=== PATIENT | female | born 1955 ===

== ENCOUNTER 2019-12-22 11:12 | Outpatient (REF) | payer MEDICARE, MEDICAID, SELFPAY ==
--- NOTE | 2019-12-22 | MM_ITS ---
EXAMINATION: MM SCREENING DIGITAL BREAST TOMOSYNTHESIS, BILATERAL CLINICAL INFORMATION: Screening. Asymptomatic. The lifetime risk of breast cancer based on the Tyrer-Cuzick Model is 4%. COMPARISON: Mammography: 12/16/2018, 11/27/2017, 10/31/2016, 10/25/2014 TECHNIQUE: Digital breast tomosynthesis is performed in both the craniocaudal and mediolateral oblique views along with computer-aided detection (CAD). Synthesized 2D images are generated from the tomosynthesis. FINDINGS: There are scattered areas of fibroglandular density (ACR BI-RADS breast composition Category b). There are no significant masses, abnormal calcifications, or other abnormalities. Parenchymal pattern is similar to prior studies. No developing density. The axilla and skin contours are unremarkable. IMPRESSION: No mammographic evidence of malignancy. ASSESSMENT: BI-RADS 1: Negative RECOMMENDATION: Routine annual mammography screening. This patient's information was entered into a reminder system with a target due date for their next mammogram.
== END 2019-12-22 11:13 | disposition home or self-care (01) ==
LOC: HO.MAMMO 11:12
PROVIDERS: PCP Internal Medicine; Visit Provider Internal Medicine
DX: Z12.31 Encounter for screening mammogram for malignant neoplasm of breast (principal)
CPT/HCPCS: 77063; 77067

== ENCOUNTER 2020-01-14 12:34 | Outpatient (REF) | payer MEDICARE, MEDICAID, SELFPAY ==
--- NOTE | 2020-01-14 12:46 | XR_ITS ---
EXAMINATION: XR RIBS, BILATERAL CLINICAL INFORMATION: Trauma, pain COMPARISON: None TECHNIQUE: Frontal view chest and 3 views of the ribs are obtained for a total of 4 views. FINDINGS: There is no visible rib fracture. The lungs are clear. There is no pneumothorax, pleural reaction, airspace consolidation, or effusion. The heart is normal in size. The hilar and mediastinal contours are unremarkable. There is no free air beneath the diaphragms. XR/XR ribs BI min 4V w CXR1V IMPRESSION: Unremarkable examination.
== END 2020-01-14 12:35 | disposition home or self-care (01) ==
LOC: HO.HMGCX 12:34
PROVIDERS: PCP Hospitalist; Visit Provider Nurse Practitioner Family
DX: S20.219A Contusion of unspecified front wall of thorax, initial encounter (principal); Z91.81 History of falling
CPT/HCPCS: 71111

== ENCOUNTER → 2020-03-30 08:16 | Outpatient (BNVA) | payer MEDICARE, MEDICAID, SELFPAY | PROVIDERS: PCP Internal Medicine; Visit Provider Nurse Practitioner Gerontology | DX: Z13.89 Encounter for screening for other disorder (principal) | CPT/HCPCS: 99212 ==

== ENCOUNTER 2020-09-21 11:16 | Outpatient (REF) | payer MEDICARE, SELFPAY ==
--- NOTE | ~2020-09-21 | MM_ITS ---
EXAMINATION: MM DIAGNOSTIC DIGITAL BREAST TOMOSYNTHESIS, BILATERAL US DIAGNOSTIC ULTRASOUND BREAST, LEFT CLINICAL INFORMATION: 65-year-old with three-day history anterior left breast pain and fullness. No discharge. Patient started on antibiotics yesterday. Symptom slightly improved. No known family history breast cancer. The lifetime risk of breast cancer based on the Tyrer-Cuzick Model is 3%. COMPARISON: Mammography: 12/22/2019, 12/16/2018, 11/27/2017 TECHNIQUE: Digital breast tomosynthesis is performed in both the craniocaudal and mediolateral oblique views along with computer-aided detection (CAD). Synthesized 2D images are generated from the tomosynthesis. Additional left magnification CC and left magnification ML x2 views are obtained. Ultrasound left breast is targeted to the circumferential retroareolar and periareolar region. Grayscale imaging and color Doppler are performed without and with harmonics. FINDINGS: There are scattered areas of fibroglandular density (ACR BI-RADS breast composition Category b). The right breast is unremarkable. There is no interval mass or architectural abnormality. No abnormal calcifications. No skin thickening or coarsening of the Tristan's ligaments. The axilla is unremarkable. The left breast shows increased attenuation in the anterior breast with subtle borderline skin thickening involving the areola. There is some mild coarsening of the stromal markings. No focal mass or architectural abnormality. The axilla is unremarkable. Ultrasound left breast demonstrates cyst 11:00 position 2 cm from nipple measuring 9 x 8 x 5 mm. There is a smaller cysts upper outer retroareolar breast measuring 5 x 3 mm. Both cysts show circumscribed margins, and no color flow, and increased through-transmission of sound. There is no solid mass or focal duct ectasia or focal hyperemia. No visible abscess or edema tracking in soft tissue plane. Results are discussed with the patient at time of visit. Findings are most likely related to nonspecific mastitis anterior left breast. Patient notes some improvement today while on antibiotics. She is advised to complete full course of antibiotics and follow-up with her primary care doctor no later than Saturday next week. Patient to follow up earlier with her provider or the emergency Department of symptoms worsen. Follow-up left breast imaging is recommended within 3 months to confirm resolution. Results and recommendation called to office senior product development manager (Zonia) for Dr. Skelton on 09/21/2020. MM/MM tomosynthesis diagnostic BI IMPRESSION: 1. Left: Findings consistent with nonspecific mastitis. 2 small cysts anterior left breast without hyperemia. No visible abscess. 2. Right: No mammographic evidence of malignancy. ASSESSMENT: BI-RADS 3: Probably Benign RECOMMENDATION: 1. Patient to complete her course of antibiotics and follow up with her PCP as directed. 2. Short interval follow-up left diagnostic mammography within 3 months. This patient's information was entered into a reminder system with a target due date for their next mammogram.
== END 2020-09-21 11:17 | disposition home or self-care (01) ==
LOC: HO.MAMMO 11:16
PROVIDERS: Visit Provider Family Medicine
DX: N63.15 Unspecified lump in the right breast, overlapping quadrants (principal)
CPT/HCPCS: 76642; 77062; 77066

== ENCOUNTER 2020-09-23 10:34 | Outpatient (REF) | payer MEDICARE, SELFPAY ==
[2020-09-23 11:57] LABS: Estimated Average Glucose 163 mg/dL; Hemoglobin A1c % 7.3 %
[2020-09-23 12:17] LABS: Alanine Aminotransferase 7 U/L (0-31); Albumin Level 4.2 g/dL (3.5-5.0); Alkaline Phosphatase 106 U/L (39-117); Anion Gap 13 (12-20); Aspartate Amino Transferase 13 U/L (5-31); Bilirubin Total 0.7 mg/dL (0.0-1.0); Blood Urea Nitrogen 15 mg/dL (9-16); Calcium 10.1 mg/dL (8.4-10.2); Carbon Dioxide 29 mmol/L (22-29); Chloride 106 mmol/L (96-108); Cholesterol 206 mg/dL; Estimated Glomerular Filt Rate > 60; Glucose Fasting 130 mg/dL (60-99); HDL Cholesterol 41 mg/dL; LDL Cholesterol Calculated 145 mg/dl; Potassium 4.5 mmol/L (3.3-5.1); Sodium 143 mmol/L (135-145); Total Protein 6.9 g/dL (6.5-8.0); Triglycerides 100 mg/dL
[2020-09-23 12:19] LABS: Creatinine Urine 208.21 mg/dL; Microalbum/Creatinine Ratio Ur 12.4 ug/mg cr
[2020-09-24 16:07] LABS: LDL Cholesterol Direct 158 mg/dL (<100)
== END 2020-09-23 10:35 | disposition home or self-care (01) ==
LOC: HO.LAB 10:34
PROVIDERS: PCP Hospitalist; Visit Provider Nurse Practitioner Gerontology
DX: E11.65 Type 2 diabetes mellitus with hyperglycemia (principal)
CPT/HCPCS: 36415; 80053; 80061; 82043; 83036; 83721

== ENCOUNTER → 2020-09-26 10:54 | Outpatient (BNVA) | payer MEDICARE, SELFPAY | PROVIDERS: PCP Hospitalist; Visit Provider Nurse Practitioner Gerontology | DX: E11.42 Type 2 diabetes mellitus with diabetic polyneuropathy (principal); E78.5 Hyperlipidemia, unspecified; I10 Essential (primary) hypertension | CPT/HCPCS: 82947; 99212 ==

== ENCOUNTER 2021-02-15 11:57 | Outpatient (REF) | payer MEDICARE, SELFPAY ==
--- NOTE | ~2021-02-15 | MM_ITS ---
EXAMINATION: MM DIAGNOSTIC DIGITAL BREAST TOMOSYNTHESIS, LEFT CLINICAL INFORMATION: Follow-up mastitis. The lifetime risk of breast cancer based on the Tyrer-Cuzick Model is 3.4%. COMPARISON: Mammography: September 21, 2020 and studies dating back to January 08, 2012 TECHNIQUE: Digital breast tomosynthesis is performed in both the craniocaudal and mediolateral oblique views along with computer-aided detection (CAD). Synthesized 2D images are generated from the tomosynthesis. FINDINGS: There are scattered areas of fibroglandular density (ACR BI-RADS breast composition Category b). There are no significant masses, abnormal calcifications, or other abnormalities. Results are provided to the patient at time of visit by the technologist. MM/MM tomosynthesis diagnostic LT IMPRESSION: There are no significant changes from prior study. ASSESSMENT: BI-RADS 1: Negative RECOMMENDATION: Routine annual mammography screening, due in 7 months. This patient's information was entered into a reminder system with a target due date for their next mammogram.
== END 2021-02-15 11:58 | disposition home or self-care (01) ==
LOC: HO.MAMMO 11:57
PROVIDERS: PCP Hospitalist; Visit Provider Family Medicine
DX: N60.02 Solitary cyst of left breast (principal)
CPT/HCPCS: 77061; 77065

== ENCOUNTER → 2021-02-20 11:22 | Outpatient (BNVA) | payer MEDICARE, SELFPAY | PROVIDERS: PCP Hospitalist; Visit Provider Nurse Practitioner Gerontology | DX: E11.42 Type 2 diabetes mellitus with diabetic polyneuropathy (principal); E78.5 Hyperlipidemia, unspecified; I10 Essential (primary) hypertension | CPT/HCPCS: 82947; 83036; 99212 ==

== ENCOUNTER → 2021-05-30 10:36 | Outpatient (BNVA) | payer MEDICARE, SELFPAY | PROVIDERS: PCP Hospitalist; Visit Provider Nurse Practitioner Gerontology | DX: E11.42 Type 2 diabetes mellitus with diabetic polyneuropathy (principal); I10 Essential (primary) hypertension; E78.5 Hyperlipidemia, unspecified; Z79.899 Other long term (current) drug therapy | CPT/HCPCS: 82947; 83036; 99212 ==

== ENCOUNTER → 2021-06-07 09:01 | Outpatient (BNVA) | payer MEDICARE, SELFPAY | PROVIDERS: PCP Hospitalist; Visit Provider Dietitian, Registered | DX: E11.42 Type 2 diabetes mellitus with diabetic polyneuropathy (principal) | CPT/HCPCS: 97802 ==

== ENCOUNTER 2021-10-19 13:01 | Outpatient (REF) | payer OTHER, SELFPAY ==
--- NOTE | ~2021-10-19 | MM_ITS ---
EXAMINATION: MM SCREENING DIGITAL BREAST TOMOSYNTHESIS, BILATERAL CLINICAL INFORMATION: Screening. Asymptomatic. The lifetime risk of breast cancer based on the Tyrer-Cuzick Model is 3%. COMPARISON: Mammography: 02/15/2021, 09/21/2020, 12/22/2019, 12/16/2018; ultrasound left breast 09/21/2020. TECHNIQUE: Digital breast tomosynthesis is performed in both the craniocaudal and mediolateral oblique views along with computer-aided detection (CAD). Synthesized 2D images are generated from the tomosynthesis. FINDINGS: There are scattered areas of fibroglandular density (ACR BI-RADS breast composition Category b). Parenchymal pattern is similar to prior studies. There is no significant mass or architectural abnormality or developing density. Right breast again has small smooth oval nodule mid medial breast and anterior upper outer breast. No abnormal calcifications. The axilla and skin contours are unremarkable. No skin thickening or coarsening of the Tristan's ligaments. MM/MM tomosynthesis screening BI IMPRESSION: No mammographic evidence of malignancy. ASSESSMENT: BI-RADS 2: Benign RECOMMENDATION: Routine annual mammography screening. This patient's information was entered into a reminder system with a target due date for their next mammogram.
== END 2021-10-19 13:02 | disposition home or self-care (01) ==
LOC: HO.MAMMO 13:01
PROVIDERS: PCP Hospitalist; Visit Provider Hospitalist
DX: Z12.31 Encounter for screening mammogram for malignant neoplasm of breast (principal)
CPT/HCPCS: 77063; 77067

== ENCOUNTER 2022-07-11 10:12 | Outpatient (REF) | payer OTHER, SELFPAY ==
[2022-07-11 10:24] LABS: MANUAL DIFF FLAG NO
[2022-07-11 10:38] LABS: Basophils Percent Auto 0.4 % (0-2); Eosinophils Absolute Auto 0.1 X10*3/uL (0.0-0.4); Eosinophils Percent Auto 0.7 % (0-4); Hematocrit 43.2 % (37.0-47.0); Hemoglobin 14.3 g/dl (12.0-16.0); Imm Gran Abs Auto 0.02 X10*3/uL (0.00-0.03); Imm Gran Pct Auto 0.3 % (0.0-0.4); Lymphocytes Absolute Auto 1.7 X10*3/uL (1.2-4.9); Lymphocytes Percent Auto 22.8 % (20-40); Mean Corpuscular HGB Conc 33.1 g/dl (31.0-35.0); Mean Corpuscular Hemoglobin 28.9 pg (27.0-33.0); Mean Corpuscular Volume 87.3 fL (80.0-98.0); Monocytes Absolute Auto 0.5 X10*3/uL (0.1-1.2); Monocytes Percent Auto 6.2 % (2-11); Neutrophils Absolute Auto 5.3 x10*3/uL (2.0-8.3); Neutrophils Percent Auto 69.6 % (45-73); Platelet Count 216 X10*3/uL (160-400); Red Blood Count 4.95 X10*6/uL (4.20-5.50); Red Cell Distribution Width 12.8 % (11.0-16.0); White Blood Count 7.6 X10*3/uL (4.8-10.8)
[2022-07-11 11:01] LABS: Estimated Average Glucose 315 mg/dL; Hemoglobin A1c % 12.6 %
[2022-07-11 11:27] LABS: Appearance Urine Clear; Color Urine Yellow; Glucose Urine UA >=1000 mg/dL (Negative); Leukocyte Esterase Urine Negative (Negative); Nitrite Urine Negative (Negative); PH 6.5 (5.0-9.0); Specific Gravity - Urine >= 1.030 (1.005-1.025); UMIC TRIGGER UACC YES; Urine Blood Negative (Negative); Urine Ketones Negative (Negative); Urine Protein Negative (Neg-Trace)
[2022-07-11 11:39] LABS: TSH reflex Free T4 0.91 uIU/mL (0.32-4.0)
[2022-07-11 11:55] LABS: Bacteria Urine None Seen (None Seen); Hyaline Casts Urine 0-2 /LPF (0-2); RBC Urine 0-2 /HPF (0-2); Squamous Epithelial Cell Urine 0-2 /HPF (0-2); WBC Urine 0-5 /HPF (0-5)
[2022-07-11 12:05] LABS: Alanine Aminotransferase 15 U/L (0-31); Albumin Level 4.2 g/dL (3.5-5.0); Alkaline Phosphatase 166 U/L (39-117); Anion Gap 13 (12-20); Aspartate Amino Transferase 16 U/L (5-31); Bilirubin Total 0.7 mg/dL (0.0-1.0); Blood Urea Nitrogen 9 mg/dL (9-16); Calcium 9.9 mg/dL (8.4-10.2); Carbon Dioxide 30 mmol/L (22-29); Chloride 100 mmol/L (96-108); Cholesterol 245 mg/dL; Estimated Glomerular Filt Rate 54; Glucose Fasting 556 mg/dL (60-99); HDL Cholesterol 46 mg/dL; LDL Cholesterol Calculated 154 mg/dl; Sodium 138 mmol/L (135-145); Total Protein 6.7 g/dL (6.5-8.0); Triglycerides 225 mg/dL
[2022-07-11 12:26] LABS: Creatinine Urine 21.69 mg/dL; Microalbumin Urine < 5.0 mg/L
== END 2022-07-11 10:13 | disposition home or self-care (01) ==
LOC: HO.LAB 10:12
PROVIDERS: PCP Internal Medicine; Visit Provider Internal Medicine
DX: E78.00 Pure hypercholesterolemia, unspecified (principal); E11.9 Type 2 diabetes mellitus without complications; I10 Essential (primary) hypertension; E55.9 Vitamin D deficiency, unspecified
CPT/HCPCS: 36415; 80053; 80061; 81001; 82043; 82306; 83036; 84443; 85025

== ENCOUNTER 2022-07-24 16:02 | Outpatient (AMB) | payer OTHER, SELFPAY ==
--- NOTE | 2022-07-24 16:30 | A.OFFPC_ITS ---
Vital Signs 07/24/22 16:31 Height 5 ft 4 in Weight 134 lb BMI 23.0 BP 130/80 Blood Pressure Location Lt brachial Position Sitting Pulse 87 Pulse Source Pulse Oximeter Pulse Oximetry (%) 97 Oxygen Delivery Method Room Air Intake Visit Reasons: Lab Results/ Paper Work Intake Note: Patient is here to review lab results and paperwork. Assistant Service Manager Required: Yes Accompanied by: Self / Same As Patient Allergies metformin Adverse Reaction (Intermediate, Verified 02/18/23 14:55) Abdominal Pain Medication List - Last Reconciled 07/24/22 by Pascual King MD blood sugar diagnostic (FreeStyle Lite Strips) 1 strip miscellaneous TID blood sugar diagnostic As directed blood-glucose meter (FreeStyle [place] Lite kit) As directed dulaglutide (Trulicity) 4.5 mg (0.5 mL) subcut QWEEK lancets (FreeStyle Lancets) As directed Tobacco use date assessed: 07/24/22 Fall risk assessment: No Falls in past year HPI Lab Results/ Paper Work HPI Details Patient comes in today at the request of Dr. Robert Chavira at [facility] in [place] for a preoperative medical examination for clearance for dental procedures/extractions As she has previously mentioned to us when she was last here a couple of weeks ago, she is being scheduled for some dental procedures but has been advised that she will need to get a medical clearance from her PCP first before they can proceed with scheduling her as she has a history of diabetes and has reported that she has been experiencing on and off chest pains recently, although she thinks that a lot of these are due to anxiety States that her chest pains do not appear to be related to activity or exertion and she denies any associated symptoms with her chest pains Denies any shortness of breath Denies any headaches or dizziness No nausea/vomiting, no abdominal pain No change in bowel habits noted Would also like to go over the results of her labs done a couple of weeks ago FORMERLY [facility] Medical History Smoker Pure hypercholesterolemia Diabetes mellitus Nephrolithiasis AVNRT (AV louisa re-entry tachycardia) Valvular heart disease Essential hypertension Hyperlipidemia LDL goal <70 Type 2 diabetes mellitus with diabetic polyneuropathy Surgical History Hx of hemorrhoidectomy Status post catheter ablation of slow pathway (~07/01/12) S/P HANNY-BSO (total abdominal hysterectomy and bilateral salpingo-oophorectomy) History of ectopic History of section Family History Father Prostate cancer Mother Natural Father FH: prostate cancer Mother Alive and well Social History Household Members: Children Household Members Other:: son Housing: House Alcohol intake: never Patient Tobacco Use Status: Current everyday Tobacco user Tobacco use type: Cigarette Cigarette Packs Per Day: 1 Cigarettes Per Day: 20 e-Cigarette/Vaping Use: Never Used Second Hand Smoke Exposure: Yes service: No Current occupational status: retired Cognitive needs: No Hearing needs: No Vision needs: Yes (Glasses) Questionnaire PHQ-9 Over the last 2 weeks, how often have you been bothered by any of the following problems? 1. Little interest or pleasure in doing things: not at all 2. Feeling down, depressed, or hopeless: several days 3. Trouble falling or staying asleep, or sleeping too much: several days 4. Feeling tired or having little energy: several days 5. Poor appetite or overeating: more than half the days 6. Feeling bad about yourself - or that you are a failure or have let yourself or your family down: not at all 7. Trouble concentrating on things, such as reading the newspaper or watching television: not at all 8. Moving or speaking so slowly that other people could have noticed. Or the opposite - being so fidgety or restless that you have been moving around a lot more than usual: not at all 9. Thoughts that you would be better off or of hurting yourself in some way: not at all Total score: 5 Depression Screening Interpretation: Positive Depression Screening Follow-up: Follow-up Visit Requested 52145 - PHQ-9 Billing: Yes Source: Developed by Drs. John Gregory, Gris Worthy, Eilas Justice and colleagues, with an educational franco from [employer] Thrive Questionnaire Date Thrive assessed: 07/24/22 I am a: Patient What is your living situation today?: I have a steady place to live Within the past 12 months, did the food you bought not last and you didn't have the money to get more?: Never true Within the past 12 months, did you worry whether your food would run out before you got money to buy more?: Never true Do you have trouble paying for medicines?: No Do you have trouble getting transportation to medical appointments?: No Do you have trouble paying your heating and electricity bill?: No Do you have trouble taking care of your child, family member or friend?: No Do you have trouble with day-to-day activities such as bathing, preparing meals, shopping, managing finances, etc.?: No Are you currently unemployed and looking for a job?: No Are you interested in more education?: No Currently or been in a relationship where the following occur: no concerns reported AUDIT C Alcohol Use Questionnaire (AUDIT-C) 1. How often do you have a drink containing alcohol?: Never 3. How often do you have six or more drinks on one occasion?: Never Total Score: 0 Score Reviewed/Action Taken: Yes BETTY-7 AMB Questionnaire BETTY-7 Date BETTY - 7 assessed: 07/24/22 Feeling nervous, anxious, or on edge: 2 = More than half the days Not being able to stop or control worryin = Several days Worrying too much about different things: 1 = Several days Trouble relaxin = Not at all Being so restless that it is hard to sit still: 0 = Not at all Becoming easily annoyed or irritable: 0 = Not at all Feeling afraid as if something awful might happen: 0 = Not at all Total BETTY-7 score (0-4 normal; 5-9 mild; 10-14 moderate; 15-21 severe): 4 Source: Developed by Drs. John Gregory, Gris Worthy, Elias Justice and colleagues, with an educational franco from [employer] BETTY-7 Assessment Billing BETTY-7 Assessment Tool: BETTY-7 Assessment 41823 Review of Systems Const Denies chills, Denies fatigue, Denies fever(s) and Denies headache(s) ENT Denies dysphagia, Denies dizziness, Denies headache(s), Denies odynophagia and Denies sore throat Card Reports chest pain (on and off, not related to activity or exertion), Denies palpitations and Denies dyspnea Resp Denies cough and Denies dyspnea GI Denies abdominal pain, Denies constipation, Denies dysphagia, Denies diarrhea, Denies nausea, Denies odynophagia and Denies vomiting Reports nocturia, Denies dysuria and Denies urinary urgency Musc Denies arthralgias Skin/Breast Denies rash Neuro Denies dizziness and Denies headache(s) Endo Denies fatigue and Denies palpitations Physical exam (Primary Care) Vital Signs: Last Vital Signs Pulse 87 07/24/22 16:31 BP 130/80 07/24/22 16:31 Pulse Ox 97 07/24/22 16:31 Oxygen Delivery Method Room Air 07/24/22 16:31 BMI result Body Mass Index 23.0 Tobacco/Smoking Status: Tobacco use Status Tobacco use date assessed 07/24/22 07/24/22 16:37 Patient Tobacco Use Status Current everyday Tobacco 07/24/22 16:37 Tobacco use type Cigarette 07/24/22 16:37 e-Cigarette/Vaping Use Never Used 07/24/22 16:37 PHQ-9: PHQ-9 Score PHQ-9: Total score 5 07/24/22 17:14 Depression Screening Interpretation: Positive Depression Screening Follow-up: Follow-up Visit Requested Thrive Assessment: Date of Thrive Assessment Date Thrive assessed 07/24/22 07/24/22 16:37 Currently or been in a relationship where the following occur: no concerns reported Const General: no acute distress and alert HENMT Ears: TM's normal bilaterally and EAC's normal Throat: Yes posterior oropharynx normal and Yes tonsils normal Neck Neck: Yes no lymphadenopathy and Yes supple Resp Auscultation: clear to auscultation bilaterally, no rales and no wheezes Cardio Rate: regular rate Rhythm: regular rhythm Heart sounds: no murmurs GI Palpation (GI): Soft to palpation and nontender Auscultation: normal bowel sounds Skin Rashes: no rashes Extrem General: Yes no clubbing, cyanosis or edema Results Reviewed Results Reviewed: Laboratory Tests 07/11/22 10:23 WBC 7.6 Hgb 14.3 Hct 43.2 Plt Count 216 Sodium 138 Potassium 5.0 Creatinine 1.02 Estimated GFR 54 Fasting Glucose 556 H* Hemoglobin A1c % 12.6 Calcium 9.9 AST 16 ALT 15 Triglycerides 225 Cholesterol 245 LDL Cholesterol, Calc 154 HDL Cholesterol 46 25-OH Vitamin D Total 29.0 TSH 0.91 Ur Specific [place] >= 1.030 H Urine Protein Negative Urine Glucose (UA) >=1000 H Urine Blood Negative Assessment and Plan Assessment & Plan (1) Chest pain: Comment: (+) Hx of AVNRT s/p ablation of slow pathway in 2012 Code(s): R07.9 - Chest pain, unspecified Qualifiers: Chest pain type: unspecified Qualified Code(s): R07.9 - Chest pain, unspecified Plan: She is scheduled for EKG stress testing next week and has been referred to cardiology recently for further evaluation and management and this is currently awaiting scheduling (2) Diabetes mellitus: Code(s): E11.9 - Type 2 diabetes mellitus without complications Qualifiers: Diabetes mellitus type: type 2 Diabetes mellitus penitentiary insulin use: without intermediate manager use Diabetes mellitus complication status: with hyperglycemia Qualified Code(s): E11.65 - Type 2 diabetes mellitus with hyperglycemia Plan: HgbA1c was at 12.6% on her labs done a couple of weeks ago (in-office HgbA1c was at 7.0% back on 05/30/22) - goal is <7.0% She was just started back on Trulicity 4.5 mg once a week when she was last seen about 2 weeks ago - she was reportedly OFF Trulicity completely for a few weeks as it was reportedly out of stock at her local pharmacy Reinforced diabetic diet (3) Pure hypercholesterolemia: Code(s): E78.00 - Pure hypercholesterolemia, unspecified Plan: Results of her labs done a couple of weeks ago reviewed and discussed with patient - is advised that her cholesterol levels are elevated, with her LDL cholesterol at 154 mg/dl - goal is 70 mg/dl or less Reinforced low cholesterol diet She was on Rosuvastatin in the past but has not taken Rx in the past 2 years Would like to hold off on starting back on statins and work on her diet for now Reminded to recheck her labs in 3 months before her appt with her PCP (4) Smoker: Code(s): F17.200 - Nicotine dependence, unspecified, uncomplicated Plan: Counseled again on smoking cessation Plan Follow up with PCP as scheduled in 3 months Coding Level of Care Code Est Pt Level 4 (75206) Diagnoses Chest pain, unspecified type R07.9 Chest pain type: unspecified Type 2 diabetes mellitus with hyperglycemia, without long-term current use of insulin E11.65 Diabetes mellitus type: type 2 Diabetes mellitus penitentiary insulin use: without penitentiary use Diabetes mellitus complication status: with hyperglycemia Pure hypercholesterolemia E78.00 Smoker F17.200 Additional Codes BETTY-7 Assessment Billing - BETTY-7 Assessment Tool: BETTY-7 Assessment 96686 ([id number])
[2022-07-24 16:31] VITALS: BP 130/80; PULSE 87; O2SAT 97; BMI 23.0
== END 2022-07-24 17:18 | disposition home or self-care (01) ==
LOC: HO.HMGH 16:02
PROVIDERS: PCP Internal Medicine; Visit Provider Internal Medicine
DX: R07.9 Chest pain, unspecified (principal); E11.65 Type 2 diabetes mellitus with hyperglycemia; E78.00 Pure hypercholesterolemia, unspecified; F17.200 Nicotine dependence, unspecified, uncomplicated
CPT/HCPCS: 99214

== ENCOUNTER → 2022-07-30 08:24 | Outpatient (REF) | payer OTHER, SELFPAY ==
--- NOTE | 2022-07-30 08:44 | CA_ITS ---
Acquisition Time: 2022-07-30 09:02:07 Total Exercise Time: 00:06:06 Test Indications: CHEST PAIN Medications: Protocol: ADRY Max HR: 131 BPM 86% of Pred: 151 BPM Max BP: 138/070 mmHG Max Work Load: 7.1 METS Exercise stress test with exercise 6 min 6 sec of Adry protocol, achieving 86% MPHR with request to stop due to inability to keep up with speed in stage 3. with mild sob, no chest discomfort, with isolated PACs, with normotensive response to exercise, with EKG changes meeting criteria for ischemia: 1-1.5 mm horizontal to downsloping ST segments inferiorly and V5-V6 which improves in recovery. Test reviewed with Dr Vázquez Referred By: Pascual King Overread By: MICHI RUBIN
== END ==
LOC: HO.CARD 08:24
PROVIDERS: PCP Internal Medicine; Visit Provider Internal Medicine
DX: R07.9 Chest pain, unspecified (principal)
CPT/HCPCS: 93017

== ENCOUNTER → 2022-10-04 09:18 | Outpatient (REF) | payer OTHER, SELFPAY ==
--- NOTE | ~2022-10-04 | NM_ITS ---
Exercise Myocardial perfusion study Indication: Chest pain to evaluate for myocardial ischemia Technique: The patient was brought in for an exercise perfusion study on 10/04/2022. Patient performed exercise as per Santy protocol and was injected 25 mCi of sestamibi was given intravenously one target HR was achieved. Images were obtained using the SPECT gamma camera interlaced with the gating device. Images were obtained in supine position. Resting perfusion study was performed on 10/05/2022. Patient was administered 25 mCi of sestamibi intravenously at rest. Images were then obtained in supine position. Images obtained with and without CT attenuation. Total DLP 84 mGy-cm. Images were processed with the software and compared side to side in short axis, horizontal long axis and vertical long axis views. Findings: The stress perfusion study showed non attenuated images show normal uptake of segments of LV myocardium. There is suggestion of left ventricle hypertrophy. Attenuation corrected images show mildly reduced uptake in the apex of the LV myocardium. The gated study shows normal LV systolic function with calculated LVEF of greater than 70%. LV cavity is normal in size. The gated study shows normal systolic wall thickening and contraction of all segments. There is no transient ischemic dilation. Resting study shows no change in perfusion pattern compared to stress perfusion study. Gating at rest reveals normal systolic wall motion with ejection fraction at 73%. The findings are consistent with normal myocardial perfusion. NM/NM cardiolite stress test Impression: 1. Normal myocardial perfusion 2. Gated LVEF is greater than 70% 3. Transient ischemic dilatation not present Stress EKG is suggestive of ischemia
--- NOTE | 2022-10-04 09:25 | CA_ITS ---
Acquisition Time: 2022-10-04 09:48:02 Total Exercise Time: 00:05:03 Test Indications: abn ett Medications: see h Protocol: ADRY Max HR: 139 BPM 92% of Pred: 151 BPM Max BP: 138/078 mmHG Max Work Load: 7.0 METS Exercise stress test exercise 5 min 3 sec of Adry protocol achieving 90% MPHR, with moderate SOB, without chest discomfort, with normotensive response to exercise, with downsloping STs in V5-V6. Nuclear images pending. Test reviewed with Dr. Vázquez. Referred By: Pascual King Overread By: Andreia Nava
== END ==
LOC: HO.CARD 09:18
PROVIDERS: PCP Internal Medicine; Visit Provider Internal Medicine
DX: R07.9 Chest pain, unspecified (principal)
CPT/HCPCS: 78452; 93017; A9500

== ENCOUNTER → 2022-10-04 09:25 | Outpatient (BNV) | payer OTHER, SELFPAY | PROVIDERS: PCP Internal Medicine; Visit Provider Nurse Practitioner | DX: R06.02 Shortness of breath (principal); R07.9 Chest pain, unspecified | CPT/HCPCS: 78452; 93016; 93018 ==

== ENCOUNTER 2022-10-11 13:54 | Outpatient (AMB) | payer OTHER, SELFPAY ==
[2022-10-11 14:04] VITALS: BP 130/70; BMI 22.8
--- NOTE | 2022-10-11 14:04 | MHC.PC.OV ---
Vital Signs 10/11/22 14:04 Height 5 ft 4 in Weight 133 lb BMI 22.8 BP 130/70 Blood Pressure Location Lt brachial Position Sitting Intake Visit Reasons: DM, hyperlipidemia Intake Note: Patient here for a follow up DM, hyperlipidemia, ? ingrown hair Receipt And Report Clerk Required: No Accompanied by: Self / Same As Patient Allergies metformin Adverse Reaction (Intermediate, Verified 10/11/22 14:22) Abdominal Pain Medication List - Last Reconciled 10/11/22 by Liz Thrasher MD blood sugar diagnostic (FreeStyle Lite Strips) 1 strip miscellaneous TID blood sugar diagnostic As directed blood-glucose meter (FreeStyle [place] Lite kit) As directed dulaglutide (Trulicity) 4.5 mg (0.5 mL) subcut QWEEK lancets (FreeStyle Lancets) As directed mupirocin 2% 1 appl topical TID Tobacco use date assessed: 08/23/22 Fall risk assessment: No Falls in past year Last assessed Fall Risk: 10/11/22 Dental Screening Dental Screen Date: 10/11/22 Did you have a dental visit in the last 12 months?: Yes Did you have a dental problem in the last 6 months where you did not have access to dental care?: No Was dental information given to patient?: Patient has dentist HPI HPI Comments History of Present Illness Details This is a 67-year-old female with diabetes mellitus type 2 not controlled that comes today for follow-up on her conditions. Last LDL was not on goal and I will start her on statins. A1c is 14% and she admits she stop using Trulicity few months ago. Will be referred to Endocrinology again. She also complains of abscess in pubic area that happened after she shaved. There are 3 of different size. No chest pain or shortness of breath. [facility] Medical History AVNRT (AV louisa re-entry tachycardia) Diabetes mellitus Essential hypertension Hyperlipidemia LDL goal <70 Nephrolithiasis Pure hypercholesterolemia Smoker Type 2 diabetes mellitus with diabetic polyneuropathy Valvular heart disease Surgical History History of section History of ectopic Hx of hemorrhoidectomy S/P HANNY-BSO (total abdominal hysterectomy and bilateral salpingo-oophorectomy) Status post catheter ablation of slow pathway (~07/01/12) Family History Father Prostate cancer Mother Natural Father FH: prostate cancer Mother Alive and well Social History Household Members: Children Household Members Other:: son Housing: House Alcohol intake: never Patient Tobacco Use Status: Current everyday Tobacco user Tobacco use type: Cigarette Cigarette Packs Per Day: 1 Cigarettes Per Day: 20 e-Cigarette/Vaping Use: Never Used Second Hand Smoke Exposure: Yes service: No Current occupational status: retired Cognitive needs: No Hearing needs: No Vision needs: Yes (Glasses) Questionnaire Thrive Questionnaire Date Thrive assessed: 07/24/22 BETTY-7 AMB Questionnaire BETTY-7 Date BETTY - 7 assessed: 07/24/22 Source: Developed by Drs. John Gregory, Gris Worthy, Elias Justice and colleagues, with an educational franco from [employer]. Review of Systems Const All systems reviewed & are unremarkable except as noted in HPI and below Eyes Reports no additional complaints, Denies change in vision and Denies other visual disturbances Card Denies chest pain at rest, Denies chest pain with activity, Denies edema, Denies irregular heart rhythm, Denies claudication, Denies dyspnea, Denies dyspnea on exertion, Denies orthopnea, Denies paroxysmal nocturnal dyspnea and Denies slow heart rate Resp Denies cough, Denies dyspnea and Denies dyspnea on exertion GI Denies abdominal pain, Denies change in bowel habits, Denies excessive flatus, Denies nausea and Denies vomiting Denies urinary incontinence, Denies urinary hesitancy and Denies urinary urgency Musc Denies abnormal gait, Denies atrophy, Denies deformity and Denies limited range of motion Skin/Breast Denies bleeding lesions, Reports furuncle, Denies changing lesions, Reports lesions and Denies rash Neuro Denies abnormal gait and Denies lack of coordination Physical exam (Primary Care) Vital Signs: Last Vital Signs BP 130/70 10/11/22 14:04 BMI result Body Mass Index 22.8 Tobacco/Smoking Status: Tobacco use Status Tobacco use date assessed 08/23/22 10/11/22 14:09 Patient Tobacco Use Status Current everyday Tobacco 10/11/22 14:09 Tobacco use type Cigarette 10/11/22 14:09 e-Cigarette/Vaping Use Never Used 10/11/22 14:09 Thrive Assessment: Date of Thrive Assessment Date Thrive assessed 07/24/22 10/11/22 14:09 Eyes General: appearance normal, both eyes and all related structures Eyelids: Yes eyelids normal Conjunctivae: conjunctivae normal Neck Neck: Yes normal visual inspection and Yes supple Resp Effort & Inspection: normal respiratory effort Auscultation: clear to auscultation bilaterally Cardio Jugular venous distension: no JVD Rate: regular rate Rhythm: regular rhythm Heart sounds: S1 normal heart sound present and S2 normal heart sound present Skin Other: 3 abscess in pubic area Extrem General: Yes full ROM Results AMB Hemoglobin A1c AMB Hemoglobin A1c 14.0 % Last Edit by CRISTI Coulter on 10/11/22 14:11 Results Reviewed Results Reviewed: Laboratory Last Values Hgb A1c (Clinic) 14.0 % (4.0-6.0) H 10/11/22 14:09 Assessment and Plan Assessment & Plan (1) Diabetes mellitus: Code(s): E11.9 - Type 2 diabetes mellitus without complications Qualifiers: Diabetes mellitus type: type 2 Diabetes mellitus halfway insulin use: without halfway use Diabetes mellitus complication status: with hyperglycemia Qualified Code(s): E11.65 - Type 2 diabetes mellitus with hyperglycemia Plan: Restart Trulicity. Referred to Endocrinology. A1c goal is equal or less than 7%. (2) Pure hypercholesterolemia: Code(s): E78.00 - Pure hypercholesterolemia, unspecified Plan: Start statins. LDL goal is less than 70. (3) Abscess: Code(s): L02.91 - Cutaneous abscess, unspecified Plan: Start Bactrim DS. Patient was instructed that if abscess still present will need surgery referral. 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
== END 2022-10-11 15:07 | disposition home or self-care (01) ==
PROVIDERS: Visit Provider Internal Medicine
DX: E11.65 Type 2 diabetes mellitus with hyperglycemia (principal); E78.00 Pure hypercholesterolemia, unspecified; L02.91 Cutaneous abscess, unspecified; E11.9 Type 2 diabetes mellitus without complications
CPT/HCPCS: 83036; 99213

== ENCOUNTER 2022-10-16 15:24 | Outpatient (AMB) | payer OTHER, SELFPAY ==
--- NOTE | 2022-10-16 15:39 | A.OFFVIS_ITS ---
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 Breaker Oiler Required: No Breaker Oiler Name: max torres [id number] Allergies metformin Adverse Reaction (Intermediate, Verified 10/16/22 15:49) Abdominal Pain Medication List - Last Reconciled 10/16/22 by JOSÉ LUIS Flower atorvastatin 20 mg PO BEDTIME 90 days blood sugar diagnostic (FreeStyle Lite Strips) 1 strip miscellaneous TID blood sugar diagnostic As directed blood-glucose meter (FreeStyle [place] Lite kit) As directed dulaglutide (Trulicity) 4.5 mg (0.5 mL) subcut QWEEK lancets (FreeStyle Lancets) As directed sulfamethoxazole-trimethoprim 800-160 mg (Bactrim DS) 1 tab PO BID 10 days HPI 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 She now presents for cardiology consult. Today she reports that for the last few months she has been getting a quick burning feeling in her left chest that lasts about 2 seconds and resolves. It occurs when she is at rest. She has not had this feeling with any physical or exertional activities. It does not occur daily, currently 1 to 2 times a week. She changed over to decaf coffee without change in her symptom. She denies having any types of chest discomfort brought on by exertion. No significant shortness of breath. Rare heart palpitations not causing her concern. She describes a history of tachycardia with prior ablation remotely. No dizziness, presyncope, syncope, falls. No PND, orthopnea or edema. No family history of heart disease that she is aware of. She tells me that her diabetes has not been well controlled. Her blood pressure has been well controlled. She takes her meds as directed. She does not engage in routine exercise. She tolerates normal ADLs without difficulty. [facility], [facility] Medical History (Updated 10/16/22 @ 16:41 by ANDREA FlowerC) AVNRT (AV louisa re-entry tachycardia) Diabetes mellitus Essential hypertension Hyperlipidemia LDL goal <70 Nephrolithiasis Pure hypercholesterolemia Smoker Type 2 diabetes mellitus with diabetic polyneuropathy Valvular heart disease Surgical History (Updated 10/16/22 @ 16:41 by Rosa Lau NP-C) History of section History of ectopic Hx of hemorrhoidectomy S/P HANNY-BSO (total abdominal hysterectomy and bilateral salpingo-oophorectomy) Status post catheter ablation of slow pathway (~07/01/12) Family History Father Prostate cancer Mother Natural Father FH: prostate cancer Mother Alive and well Social History Household Members: Children Household Members Other:: son Housing: House Alcohol intake: never Patient Tobacco Use Status: Current everyday Tobacco user Tobacco use type: Cigarette Cigarette Packs Per Day: 1 Cigarettes Per Day: 20 e-Cigarette/Vaping Use: Never Used Second Hand Smoke Exposure: Yes service: No Current occupational status: retired Cognitive needs: No Hearing needs: No Vision needs: Yes (Glasses) Review of Systems Const All systems reviewed & are unremarkable except as noted in HPI and below ENT Reports dizziness Card Reports chest pain, Reports chest pain at rest, Denies chest pain with activity, Denies rapid heart rate, Denies pedal edema, Denies edema, Denies leg edema, Denies lightheadedness, Denies palpitations, Denies dyspnea, Denies dyspnea on exertion and Denies orthopnea Resp Denies cough, Denies dyspnea and Denies dyspnea on exertion GI Denies hematochezia and Denies change in stool character Musc Denies abnormal gait, Reports limited range of motion, Reports muscle cramps, Denies muscle weakness, Denies numbness, Denies radiating pain into limb, Denies stiffness and Denies tingling Neuro Denies abnormal gait, Reports dizziness, Denies numbness and Denies tingling Endo Denies palpitations Physical Exam Vital Signs: Last Vital Signs Pulse 92 10/16/22 15:40 BP 135/70 10/16/22 15:40 BMI result Body Mass Index 22.3 Const General: cooperative, healthy appearing, comfortable and no acute distress Orientation/consciousness: patient oriented x3 Neck Neck: Yes normal visual inspection Resp Effort & Inspection: normal respiratory effort Auscultation: clear to auscultation bilaterally, no crackles, no rales, no rhonchi and no wheezes Cardio Jugular venous distension: no JVD Rate: regular rate Rhythm: regular rhythm Heart sounds: S2 normal heart sound present, Murmur heart sound present (Systolic murmur noted) and no rubs GI Inspection: Yes normal to inspection Neuro General: patient oriented x3 Extrem General: Yes normal to inspection Psych Appearance: grossly normal Mental Status: mental status grossly normal Speech and movement: Normal speech and movement present Office Procedures EKG Details: Today, read by me, normal sinus rhythm with sinus arrhythmia, possible left atrial enlargement, nonspecific ST abnormality, no acute findings, rate 92, QTC 442 millisecond [id number], Complete Assessment & Plan Assessment & Plan (1) Chest pain: Comment: (+) Hx of AVNRT s/p ablation of slow pathway in 2012 Code(s): R07.9 - Chest pain, unspecified Qualifiers: Chest pain type: unspecified Qualified Code(s): R07.9 - Chest pain, unspecified Plan: Patient reports brief burning type discomfort in the left chest region lasting 2 seconds occurring at rest 1 to 2 times a week for the last few months without known trigger or associated symptoms. She has no known history of CAD. She does have multiple cardiac risk factors including hypertension, hyperlipidemia, diabetes, smoking. She underwent an exercise stress test on 07/30/2022 where she exercise 6 minutes with no chest discomfort, with EKG changes meeting criteria for ischemia. She then had exercise nuclear stress test 10/04/2022 with exercise 5 minutes, moderate shortness of breath, no chest discomfort, with EKG changes. Her myocardial perfusion imaging came back normal with EF greater than 70%. On examination today she is noted to have a systolic murmur. Prior echo in 2018 showed normal EF and normal valves. Will update echocardiogram and assess for any regional wall motion abnormalities. If she continues to report symptoms although atypical will consider a CTA of the coronary arteries, due to her multiple risk factors. Signs and symptoms of angina reviewed. Cardiology follow-up in 6-8 weeks, sooner if needed. (2) Murmur: Code(s): R01.1 - Cardiac murmur, unspecified Plan: Systolic murmur noted, lattice to the left of the sternal border, suggestive of / aortic calcifications (3) Diabetes type 2, controlled: Code(s): E11.9 - Type 2 diabetes mellitus without complications Qualifiers: Diabetes mellitus snf insulin use: without termite control service representative use Diabetes mellitus complication status: without complication Qualified Code(s): E11.9 - Type 2 diabetes mellitus without complications Plan: Hemoglobin A1c goal less than 7. Hemoglobin A1c done 10/11/2022 is 14. She admits that her diabetes is not well controlled, which increases her heart disease risk. Followed by her PCP (4) Hyperlipidemia, unspecified: Code(s): E78.5 - Hyperlipidemia, unspecified Qualifiers: Hyperlipidemia type: unspecified Qualified Code(s): E78.5 - Hyperlipidemia, unspecified Plan: [place] LDL goal less than 70 in patient with diabetes. Labs done on 07/11/2022 shows LDL 154. It appears she was started on atorvastatin 20 mg at bedtime recently. Recommend fasting lipid profile in 2-3 months. (5) Smoker: Code(s): F17.200 - Nicotine dependence, unspecified, uncomplicated Plan: Benefits of smoking cessation reviewed. (6) AVNRT (AV louisa re-entry tachycardia): Code(s): I47.1 - Supraventricular tachycardia Plan: Reported history of tachycardia and underwent ablation 2012. She denies any concerning heart palpitations at present. Will be obtaining echocardiogram. No indication for Holter monitor at present. (7) Status post catheter ablation of slow pathway: Onset Date: ~07/01/12 Code(s): Z98.890 - Other specified postprocedural states; Z86.79 - Personal history of other diseases of the circulatory system (8) Essential hypertension: Code(s): I10 - Essential (primary) hypertension Plan: Adequately controlled at present time. Not on antihypertensive agents. Orders: Orders CA echo transthoracic complete Today R01.1 - Cardiac murmur, unspecified, R07.9 - Chest pain, unspecified Coding Level of Care Code New Pt Level 4 (06614) Diagnoses Chest pain R07.9 Chest pain type: unspecified Murmur R01.1 Diabetes type 2, controlled E11.9 Diabetes mellitus snf insulin use: without snf use Diabetes mellitus complication status: without complication Hyperlipidemia, unspecified E78.5 Hyperlipidemia type: unspecified Smoker F17.200 AVNRT (AV louisa re-entry tachycardia) I47.1 Status post catheter ablation of slow pathway Z98.890; Z86.79 Essential hypertension I10 CPT Codes EKG - CPT: [id number], Complete ([id number]) Time Spent (min) 30 Comment Chart review, documentation, interview, assessment, new patient
[2022-10-16 15:40] VITALS: BP 135/70; PULSE 92; BMI 22.3
== END 2022-10-16 16:35 | disposition home or self-care (01) ==
LOC: HO.HCS 15:24
PROVIDERS: PCP Internal Medicine; Referring Provider Internal Medicine; Visit Provider Nurse Practitioner Family
DX: R07.9 Chest pain, unspecified (principal); R01.1 Cardiac murmur, unspecified; E11.9 Type 2 diabetes mellitus without complications; E78.5 Hyperlipidemia, unspecified; F17.200 Nicotine dependence, unspecified, uncomplicated; I47.1 Supraventricular tachycardia; Z98.890 Other specified postprocedural states; Z86.79 Personal history of other diseases of the circulatory system; I10 Essential (primary) hypertension
CPT/HCPCS: 93010; 99214

== ENCOUNTER → 2022-10-16 15:24 | Outpatient (BNVA) | payer OTHER, SELFPAY | PROVIDERS: PCP Internal Medicine; Referring Provider Internal Medicine; Visit Provider Nurse Practitioner Family | DX: R07.9 Chest pain, unspecified (principal); R01.1 Cardiac murmur, unspecified; E11.9 Type 2 diabetes mellitus without complications; E78.5 Hyperlipidemia, unspecified; I47.1 Supraventricular tachycardia; I10 Essential (primary) hypertension; F17.210 Nicotine dependence, cigarettes, uncomplicated; Z98.890 Other specified postprocedural states; Z86.79 Personal history of other diseases of the circulatory system | CPT/HCPCS: 93005; 99212 ==

== ENCOUNTER 2022-10-23 10:17 | Outpatient (REF) | payer OTHER, SELFPAY | END 2022-10-23 10:18 | disposition home or self-care (01) | LOC: HO.MAMMO 10:17 | PROVIDERS: PCP Internal Medicine; Visit Provider Internal Medicine | DX: Z12.31 Encounter for screening mammogram for malignant neoplasm of breast (principal) | CPT/HCPCS: 77063; 77067 ==

== ENCOUNTER → 2022-10-23 10:45 | Outpatient (BNV) | payer OTHER, SELFPAY | PROVIDERS: PCP Internal Medicine; Visit Provider Radiology Diagnostic Radiology | DX: Z12.31 Encounter for screening mammogram for malignant neoplasm of breast (principal) | CPT/HCPCS: 77063; 77067 ==

== ENCOUNTER → 2022-11-15 10:59 | Outpatient (REF) | payer OTHER, SELFPAY ==
--- NOTE | 2022-11-15 11:01 | CA_ITS ---
Transthoracic Echocardiogram Patient (Last, First, Middle): Beth Chin, Gender: Female Date of : 1955 Age: 67 Procedure Date: 11/15/2022 Procedure Type: Transthoracic Echocardiogram Location: OP Height: 162.56 cm Weight: 62.14 kg BSA: 1.67 m2 Heart Rate: bpm BP: 134 / 76 mmHg Talent Coordinator: MELISSA Referring MD: Rosa Lau TECHNICAL RESEARCH SCIENTIST-Luciano Machine Design Engineer: Denys Vázquez MD Symptoms: R07.9 - Chest pain, unspecified Study Quality: Adequate ECG Rhythm: Sinus Conclusions: - 1. Hyperdynamic LV ejection fraction greater than 70% with mild LVH and moderate asymmetric septal hypertrophy without obstructive physiology with elevated filling pressures 2. Normal cardiac valvular Dopplers with calcified nodule noted on the aortic valve 3. Normal RV systolic pressure 4. No gross pericardial effusion Findings Left Ventricle Normal left ventricular cavity size. There is mildly increased left ventricular wall thickness. The left ventricular systolic function is hyperdynamic. The visually estimated ejection fraction is >70%. Spectral Doppler is indicative of an impaired relaxation filling pattern. Elevated filling pressures. E/E prime ratio is >15, consistent with elevated filling pressures. There is moderate septal asymmetric hypertrophy. Peak GLS is 14.9%, which is reduced. Right Ventricle Normal right ventricular cavity size and systolic function. Atria The left atrium is likely dilated. There is lipomatous hypertrophy of the interatrial septum. There is no evidence of interatrial shunt. The right atrium is normal in size. Aortic Valve There is moderate calcification of the aortic valve. There is no aortic valve stenosis. There is no aortic valve regurgitation. Mitral Valve There is mild anterior and posterior mitral leaflet thickening. There is mild mitral annular calcification. There is trace mitral valve regurgitation. There is no mitral valve stenosis. Pulmonic Valve The pulmonic valve is likely normal. Tricuspid Valve Normal tricuspid valve structure. There is mild tricuspid valve regurgitation. The right ventricular systolic pressure is normal. The right ventricular systolic pressure is 24 mmHg. Normal right atrial pressure. Great Vessels All visible segments of the aorta are normal in size. The pulmonary artery was not well visualized. Venous The inferior vena cava is normal in size and collapses greater than 50% with inspiration. Pericardium/Pleural There is no evidence of pericardial effusion. Measurements 2D Linear Measurements IVSd: 1.26 0.6-0.9/0.6-1.0 cm LVIDd: 3.78 3.9-5.3/4.2-5.9 cm LVIDd Index: 2.26 2.4-3.2/2.2-3.1 cm/m2 LVIDs: 2.05 2.0-3.6 cm LVPWd: 1.21 0.7-1.1 cm LA Diam: 2.40 2.7-3.8/3.0-4.0 cm LAIDs Index: 1.44 1.5-2.3 cm/m2 LV Mass: 197.74 67-162/88-224 g LV Mass Index: 118.40 43-95/49-115 g/m2 LVOT Diam: 1.90 3.0+(-)1.3 cm 2D Systolic Function EF 4C: 81.10 >55% EF 2C: 70.30 >55% EF BiP: 76.70 >55% Mitral Valve MV Pk E: 1.00 MV PK A: 0.97 MV Decel Time: 215.00 E/A: 1.00 E'Lateral: 4.57 E'Medial: 3.26 E/E' Med: 30.50 E/E' Lat: 21.80 PHT: 63.00 MVA PHT: 3.49 Decel [place]: 4.63 Aortic Valve AoV Pk Humphrey: 1.86 AoV Mn Humphrey: 1.36 AoV VTI: 0.43 AoV Pk Grad: 14.00 Aov Mn Grad: 8.00 PARTICIO Cont.VTI: 2.04 LVOT LVOT Pk Humphrey: 1.49 LVOT Mn Humphrey: 1.01 LVOT VTI: 0.31 LVOT Pk Grad: 9.00 LVOT Mn Grad: 5.00 LVOT Diam: 1.90 LVOT Area: 2.84 Diastolic Function MV Pk E: 1.00 MV Pk A: 0.97 E/A: 1.00 E'Medial: 3.26 E/E' Med: 30.50 E' Laterial: 4.57 E/E' Lat: 21.80 Right Ventricle TAPSE (mm): 19.30 TVS' Humphrey: 14.70 Tricuspid Valve TR Pk Humphrey: 2.29 TR Pk Grad: 21.00 RA Press: 3.00 RVSP: 24.00 Great Vessels Aorta Sinus of Valsalva: 3.46 2.0-3.[address] [place]: 2.51 1.7-3.4 cm Ao Asc: 3.30 2.1-3.4 cm Updated in Other Vendor System with Status of Final Denys Vázquez MD electronically signed on 11/15/2022 4:01:52 PM with status of Final
== END ==
LOC: HO.CARD 10:59
PROVIDERS: Visit Provider Nurse Practitioner Family
DX: R07.9 Chest pain, unspecified (principal); R01.1 Cardiac murmur, unspecified
CPT/HCPCS: 93306; 93356

== ENCOUNTER → 2022-11-15 11:01 | Outpatient (BNV) | payer OTHER, SELFPAY | PROVIDERS: Visit Provider Internal Medicine Cardiovascular Disease | DX: I36.1 Nonrheumatic tricuspid (valve) insufficiency (principal); I34.81 Nonrheumatic mitral (valve) annulus calcification | CPT/HCPCS: 93306 ==

== ENCOUNTER 2022-11-27 15:16 | Outpatient (AMB) | payer OTHER, SELFPAY ==
[2022-11-27 15:49] VITALS: BP 120/84; PULSE 78; BMI 22.6
--- NOTE | 2022-11-27 15:49 | MHC.OFFVIS ---
Intake Vital Signs 11/27/22 15:49 Height 5 ft 4 in Weight 131 lb 13.383 oz BMI 22.6 BP 120/84 Blood Pressure Location Lt brachial Position Sitting Pulse 78 Pulse Source Pulse Oximeter Intake Visit Reasons: f/up after testing Intake Note: f/up after testing Women'S Apparel Salesperson Required: Yes Women'S Apparel Salesperson Language: Ammunition Storage Superintendent Name: max ahn [id number] Allergies metformin Adverse Reaction (Intermediate, Verified 11/27/22 15:54) Abdominal Pain Medication List - Last Reconciled 11/27/22 by Rosa Lau NP-C atorvastatin 20 mg PO BEDTIME 90 days blood sugar diagnostic (FreeStyle Lite Strips) 1 strip miscellaneous TID blood sugar diagnostic As directed blood-glucose meter (FreeStyle [place] Lite kit) As directed dulaglutide (Trulicity) 4.5 mg (0.5 mL) subcut QWEEK lancets (FreeStyle Lancets) As directed HPI f/up after testing HPI Details Beth is a 67-year-old female with past medical history of hypertension, hyperlipidemia, diabetes, smoking who was recently evaluated for chest discomfort. She underwent an echocardiogram and now presents for follow-up. Today she reports that she still gets a periodically burning feeling in her chest. Overall it has lessened since prior reports. She says it lasts about 2 seconds and resolves. It is not brought on by physical activity. No significant shortness of breath, palpitations, presyncope, syncope, falls. No PND, orthopnea or edema. She wants to have dental work in the near future and needs to have a form filled out. [facility] Medical History Smoker Pure hypercholesterolemia Diabetes mellitus Nephrolithiasis AVNRT (AV louisa re-entry tachycardia) Valvular heart disease Essential hypertension Hyperlipidemia LDL goal <70 Type 2 diabetes mellitus with diabetic polyneuropathy Surgical History Hx of hemorrhoidectomy Status post catheter ablation of slow pathway (~07/01/12) S/P HANNY-BSO (total abdominal hysterectomy and bilateral salpingo-oophorectomy) History of ectopic History of section Family History Father Prostate cancer Mother Natural Father FH: prostate cancer Mother Alive and well Social History Household Members: Children Household Members Other:: son Housing: House Alcohol intake: never Patient Tobacco Use Status: Current everyday Tobacco user Tobacco use type: Cigarette Cigarette Packs Per Day: 1 Cigarettes Per Day: 20 e-Cigarette/Vaping Use: Never Used Second Hand Smoke Exposure: Yes service: No Current occupational status: retired Cognitive needs: No Hearing needs: No Vision needs: Yes (Glasses) Review of Systems Const All systems reviewed & are unremarkable except as noted in HPI and below ENT Denies dizziness Card Reports chest pain, Denies chest pain at rest, Denies chest pain with activity, Denies rapid heart rate, Denies pedal edema, Denies edema, Denies leg edema, Denies lightheadedness, Denies palpitations, Denies dyspnea, Denies dyspnea on exertion and Denies orthopnea Resp Denies cough, Denies dyspnea and Denies dyspnea on exertion GI Denies hematochezia and Denies change in stool character Musc Denies abnormal gait, Denies limited range of motion, Denies muscle cramps, Denies muscle weakness, Denies numbness, Denies radiating pain into limb, Denies stiffness and Denies tingling Neuro Denies abnormal gait, Denies dizziness, Denies numbness and Denies tingling Endo Denies palpitations Physical Exam Vital Signs: Last Vital Signs Pulse 78 11/27/22 15:49 BP 120/84 11/27/22 15:49 BMI result Body Mass Index 22.6 Const General: cooperative, healthy appearing, comfortable and no acute distress Orientation/consciousness: patient oriented x3 Neck Neck: Yes normal visual inspection Resp Effort & Inspection: normal respiratory effort Auscultation: clear to auscultation bilaterally, no crackles, no rales, no rhonchi and no wheezes Cardio Jugular venous distension: no JVD Rate: regular rate Rhythm: regular rhythm Heart sounds: S1 normal heart sound present, S2 normal heart sound present, Murmur heart sound present (systolic) and no rubs Neuro General: patient oriented x3 Extrem General: Yes normal to inspection Psych Appearance: grossly normal Mental Status: mental status grossly normal Speech and movement: Normal speech and movement present Assessment & Plan Assessment & Plan (1) Chest pain: Comment: (+) Hx of AVNRT s/p ablation of slow pathway in 2013 Code(s): R07.9 - Chest pain, unspecified Qualifiers: Chest pain type: unspecified Qualified Code(s): R07.9 - Chest pain, unspecified Plan: Patient reports brief burning type discomfort in the left chest region lasting 2 seconds occurring at rest 1 to 2 times a week for the last few months without known trigger or associated symptoms. She has no known history of CAD. She does have multiple cardiac risk factors including hypertension, hyperlipidemia, diabetes, smoking. She underwent an exercise stress test on 07/30/2022 where she exercise 6 minutes with no chest discomfort, with EKG changes meeting criteria for ischemia. She then had exercise nuclear stress test 10/04/2022 with exercise 5 minutes, moderate shortness of breath, no chest discomfort, with EKG changes. Her myocardial perfusion imaging came back normal with EF greater than 70%. An echocardiogram was done on 11/15/2022 showing EF greater than 70%, mild LVH, moderate asymmetrical septal hypertrophy without obstruction, calcified nodule on the aortic valve. Reviewed echo findings with her. Overall she says her chest discomfort has lessened. It still occurs and is the same, lasting 2 seconds and resolving. Her symptom does sound atypical for angina but will continue to follow. Instructed to call this office if she has any increasing discomfort or discomfort with physical activity. Emergency care if ever needed for symptoms. Signs and symptoms of angina reviewed. Cardiology follow-up in 6 mo, sooner if needed. (2) Murmur: Code(s): R01.1 - Cardiac murmur, unspecified Plan: Systolic murmur noted, left of the sternal border, suggestive of / aortic calcifications. Echocardiogram as above showing a calcific nodule on the aortic valve, no stenosis or regurgitation. (3) Diabetes type 2, controlled: Code(s): E11.9 - Type 2 diabetes mellitus without complications Qualifiers: Diabetes mellitus complication status: without complication Diabetes mellitus senior living insulin use: without supervisor intermediates use Qualified Code(s): E11.9 - Type 2 diabetes mellitus without complications Plan: Hemoglobin A1c goal less than 7. Hemoglobin A1c done 10/11/2022 is 14. She admits that her diabetes is not well controlled, which increases her heart disease risk. Patient informed how diabetes can affect her heart and that she needs to get this better controlled. Followed by her PCP (4) Hyperlipidemia, unspecified: Code(s): E78.5 - Hyperlipidemia, unspecified Qualifiers: Hyperlipidemia type: unspecified Qualified Code(s): E78.5 - Hyperlipidemia, unspecified Plan: [place] LDL goal less than 70 in patient with diabetes. Labs done on 07/11/2022 shows LDL 154. It appears she was started on atorvastatin 20 mg at bedtime recently. Recommend updated fasting lipid profile. (5) Smoker: Code(s): F17.200 - Nicotine dependence, unspecified, uncomplicated Plan: Benefits of smoking cessation reviewed. (6) AVNRT (AV louisa re-entry tachycardia): Code(s): I47.1 - Supraventricular tachycardia Plan: Reported history of tachycardia and underwent ablation 2012. She denies any concerning heart palpitations at present. No indication for Holter monitor at present. (7) Status post catheter ablation of slow pathway: Onset Date: ~07/01/12 Code(s): Z98.890 - Other specified postprocedural states; Z86.79 - Personal history of other diseases of the circulatory system (8) Essential hypertension: Code(s): I10 - Essential (primary) hypertension Plan: Adequately controlled at present time. Not on antihypertensive agents. Coding Level of Care Code Est Pt Level 3 (77904) Diagnoses Chest pain, unspecified type R07.9 Chest pain type: unspecified Murmur R01.1 Controlled type 2 diabetes mellitus without complication, without long-term current use of insulin E11.9 Diabetes mellitus complication status: without complication Diabetes mellitus supervisor intermediates insulin use: without supervisor intermediates use Hyperlipidemia, unspecified hyperlipidemia type E78.5 Hyperlipidemia type: unspecified Smoker F17.200 AVNRT (AV louisa re-entry tachycardia) I47.1 Status post catheter ablation of slow pathway Z98.890; Z86.79 Essential hypertension I10 Time Spent (min) 26
== END 2022-11-27 16:35 | disposition home or self-care (01) ==
PROVIDERS: PCP Internal Medicine; Visit Provider Nurse Practitioner Family
DX: R07.9 Chest pain, unspecified (principal); R01.1 Cardiac murmur, unspecified; E11.9 Type 2 diabetes mellitus without complications; E78.5 Hyperlipidemia, unspecified; F17.200 Nicotine dependence, unspecified, uncomplicated; I47.1 Supraventricular tachycardia; Z98.890 Other specified postprocedural states; Z86.79 Personal history of other diseases of the circulatory system; I10 Essential (primary) hypertension
CPT/HCPCS: 99213

== ENCOUNTER → 2022-11-27 15:16 | Outpatient (BNVA) | payer OTHER, SELFPAY | PROVIDERS: Visit Provider Nurse Practitioner Family | DX: R07.9 Chest pain, unspecified (principal); I47.1 Supraventricular tachycardia; I10 Essential (primary) hypertension; R01.1 Cardiac murmur, unspecified; E78.5 Hyperlipidemia, unspecified; Z98.890 Other specified postprocedural states; Z86.79 Personal history of other diseases of the circulatory system; E11.9 Type 2 diabetes mellitus without complications; F17.210 Nicotine dependence, cigarettes, uncomplicated | CPT/HCPCS: 99212 ==

== ENCOUNTER 2023-02-05 08:50 | Outpatient (REF) | payer OTHER, SELFPAY ==
[2023-02-05 10:18] LABS: Anion Gap 13 (12-20); Blood Urea Nitrogen 15 mg/dL (9-16); Calcium 9.8 mg/dL (8.4-10.2); Carbon Dioxide 28 mmol/L (22-29); Chloride 102 mmol/L (96-108); Estimated Glomerular Filt Rate > 60; Glucose Random 366 mg/dL (60-115); Potassium 4.7 mmol/L (3.3-5.1); Sodium 138 mmol/L (135-145)
== END 2023-02-05 08:51 | disposition home or self-care (01) ==
LOC: HO.LAB 08:50
PROVIDERS: PCP Internal Medicine; Visit Provider Nurse Practitioner Family
DX: I10 Essential (primary) hypertension (principal)
CPT/HCPCS: 36415; 80048

== ENCOUNTER 2023-02-18 13:54 | Outpatient (AMB) | payer OTHER, SELFPAY ==
[2023-02-18 13:55] VITALS: BP 140/82; PULSE 73; O2SAT 98; BMI 23.1
--- NOTE | 2023-02-18 13:55 | MHC.PC.OV ---
Vital Signs 02/18/23 13:55 Height 5 ft 4 in Weight 134 lb 6 oz BMI 23.1 BP 140/82 H Blood Pressure Location Lt brachial Position Sitting Pulse 73 Pulse Source Pulse Oximeter Pulse Oximetry (%) 98 Oxygen Delivery Method Room Air Intake Visit Reasons: dm Cloud Physicist Required: No Accompanied by: Self / Same As Patient Allergies metformin Adverse Reaction (Intermediate, Verified 02/18/23 14:55) Abdominal Pain Medication List - Last Reconciled 02/18/23 by Pascual King MD atorvastatin 20 mg PO BEDTIME 90 days blood sugar diagnostic (FreeStyle Lite Strips) 1 strip miscellaneous TID blood sugar diagnostic As directed blood-glucose meter (FreeStyle [place] Lite kit) As directed dulaglutide (Trulicity) 4.5 mg (0.5 mL) subcut QWEEK lancets (FreeStyle Lancets) As directed Tobacco use date assessed: 02/18/23 Fall risk assessment: No Falls in past year Last assessed Fall Risk: 02/18/23 Dental Screening Dental Screen Date: 02/18/23 Did you have a dental visit in the last 12 months?: Yes Did you have a dental problem in the last 6 months where you did not have access to dental care?: No Was dental information given to patient?: Patient has dentist HPI dm HPI Details Patient comes in today for her follow up visit States that she feels okay She denies any headaches or dizziness Denies any shortness of breath but still has on and off chest pains that are not related to activity or exertion No nausea /vomiting, no abdominal pain No change in bowel habits noted States that she just had a cardiac MRI done at [facility] earlier this morning Has a skin tag on her right arm that she states has been present for a while now - would now like to get a referral to dermatology to have this removed Has not had any follow up labs done although she recalls getting some non-fasting labs done for cardiology recently [facility] Medical History Smoker Pure hypercholesterolemia Diabetes mellitus Nephrolithiasis AVNRT (AV louisa re-entry tachycardia) Valvular heart disease Essential hypertension Hyperlipidemia LDL goal <70 Type 2 diabetes mellitus with diabetic polyneuropathy Surgical History Hx of hemorrhoidectomy Status post catheter ablation of slow pathway (~07/01/12) S/P HANNY-BSO (total abdominal hysterectomy and bilateral salpingo-oophorectomy) History of ectopic History of section Family History Father Prostate cancer Mother Natural Father FH: prostate cancer Mother Alive and well Social History Household Members: Children Household Members Other:: son Housing: House Alcohol intake: never Patient Tobacco Use Status: Current everyday Tobacco user Tobacco use type: Cigarette Cigarette Packs Per Day: 1 Cigarettes Per Day: 20 e-Cigarette/Vaping Use: Never Used Second Hand Smoke Exposure: Yes service: No Current occupational status: retired Cognitive needs: No Hearing needs: No Vision needs: Yes (Glasses) Questionnaire PHQ-9 Over the last 2 weeks, how often have you been bothered by any of the following problems? 1. Little interest or pleasure in doing things: not at all 2. Feeling down, depressed, or hopeless: several days 3. Trouble falling or staying asleep, or sleeping too much: several days 4. Feeling tired or having little energy: several days 5. Poor appetite or overeating: more than half the days 6. Feeling bad about yourself - or that you are a failure or have let yourself or your family down: not at all 7. Trouble concentrating on things, such as reading the newspaper or watching television: not at all 8. Moving or speaking so slowly that other people could have noticed. Or the opposite - being so fidgety or restless that you have been moving around a lot more than usual: not at all 9. Thoughts that you would be better off or of hurting yourself in some way: not at all Total score: 5 Depression Screening Interpretation: Positive Depression Screening Follow-up: Follow-up Visit Requested Depression Screening Done: Yes [id number] - PHQ-9 Billing: Yes Source: Developed by Drs. John Gregory, Gris Worthy, Elias Justice and colleagues, with an educational franco from [employer]. Thrive Questionnaire Date Thrive assessed: 12/11/23 I am a: Patient What is your living situation today?: I have a steady place to live Within the past 12 months, did the food you bought not last and you didn't have the money to get more?: Never true Within the past 12 months, did you worry whether your food would run out before you got money to buy more?: Never true Do you have trouble paying for medicines?: No Do you have trouble getting transportation to medical appointments?: No Do you have trouble paying your heating and electricity bill?: No Do you have trouble taking care of your child, family member or friend?: No Do you have trouble with day-to-day activities such as bathing, preparing meals, shopping, managing finances, etc.?: No Are you currently unemployed and looking for a job?: No Are you interested in more education?: No Please select the resources that you would like help with: None Currently or been in a relationship where the following occur: no concerns reported AUDIT C Alcohol Use Questionnaire (AUDIT-C) 1. How often do you have a drink containing alcohol?: Never 3. How often do you have six or more drinks on one occasion?: Never Total Score: 0 Score Reviewed/Action Taken: Yes BETTY-7 AMB Questionnaire BETTY-7 Date BETTY - 7 assessed: 02/18/23 Feeling nervous, anxious, or on edge: 0 = Not at all Not being able to stop or control worryin = Not at all Worrying too much about different things: 0 = Not at all Trouble relaxin = Not at all Being so restless that it is hard to sit still: 0 = Not at all Becoming easily annoyed or irritable: 0 = Not at all Feeling afraid as if something awful might happen: 0 = Not at all Total BETTY-7 score (0-4 normal; 5-9 mild; 10-14 moderate; 15-21 severe): 0 Source: Developed by Drs. John Gregory, Gris Worthy, Elias Justice and colleagues, with an educational franco from [employer]. Review of Systems Const Denies chills, Denies fatigue, Denies fever(s) and Denies headache(s) ENT Denies dysphagia, Denies dizziness, Denies headache(s), Denies odynophagia and Denies sore throat Card Reports chest pain (on and off, not related to activity or exertion), Denies palpitations and Denies dyspnea Resp Denies cough and Denies dyspnea GI Denies abdominal pain, Denies constipation, Denies dysphagia, Denies diarrhea, Denies nausea, Denies odynophagia and Denies vomiting Denies nocturia, Denies dysuria and Denies urinary urgency Musc Denies arthralgias Skin/Breast Details: (+) skin tag on the right arm Denies rash Neuro Denies dizziness and Denies headache(s) Endo Denies fatigue and Denies palpitations Physical exam (Primary Care) Vital Signs: Last Vital Signs Pulse 73 02/18/23 13:55 BP 140/82 H 02/18/23 13:55 Pulse Ox 98 02/18/23 13:55 Oxygen Delivery Method Room Air 02/18/23 13:55 BMI result Body Mass Index 23.1 Tobacco/Smoking Status: Tobacco use Status Tobacco use date assessed 02/18/23 02/18/23 13:57 Patient Tobacco Use Status Current everyday Tobacco 02/18/23 13:57 Tobacco use type Cigarette 02/18/23 13:57 e-Cigarette/Vaping Use Never Used 02/18/23 13:57 PHQ-9: PHQ-9 Score PHQ-9: Total score 5 02/18/23 14:52 Depression Screening Interpretation: Positive Depression Screening Follow-up: Follow-up Visit Requested Thrive Assessment: Date of Thrive Assessment Date Thrive assessed 02/18/23 02/18/23 13:57 Currently or been in a relationship where the following occur: no concerns reported Const General: no acute distress and alert HENMT Ears: TM's normal bilaterally and EAC's normal Throat: Yes posterior oropharynx normal and Yes tonsils normal Neck Neck: Yes no lymphadenopathy and Yes supple Resp Auscultation: clear to auscultation bilaterally, no rales and no wheezes Cardio Rate: regular rate Rhythm: regular rhythm Heart sounds: no murmurs GI Palpation (GI): Soft to palpation and nontender Auscultation: normal bowel sounds Skin Other: (+) raised skin tag on the right arm Rashes: no rashes Extrem General: Yes no clubbing, cyanosis or edema Results AMB Hemoglobin A1c AMB Hemoglobin A1c 14 % Last Edit by Rani Guzman on 02/18/23 14:14 Results Reviewed Results Reviewed: Laboratory Last Values Hgb A1c (Clinic) 14 % (4.0-6.0) H 02/18/23 13:59 Laboratory Tests 02/05/23 09:10 Sodium 138 Potassium 4.7 Creatinine 0.89 Estimated GFR > 60 Random Glucose 366 H* Calcium 9.8 Assessment and Plan Assessment & Plan (1) Diabetes mellitus: Code(s): E11.9 - Type 2 diabetes mellitus without complications Qualifiers: Diabetes mellitus complication status: with hyperglycemia Diabetes mellitus correction insulin use: without correction use Diabetes mellitus type: type 2 Qualified Code(s): E11.65 - Type 2 diabetes mellitus with hyperglycemia Plan: In-office HgbA1c done today is at 14% (was also at 14.0% back in October 2022) - goal is <7.0% Reinforced diabetic diet Continue Trulicity 4.5 mg SQ once a week; will start patient additionally on Farxiga 10 mg QD She was referred to endocrinology a few months ago but has not yet been seen (2) Pure hypercholesterolemia: Code(s): E78.00 - Pure hypercholesterolemia, unspecified Plan: Reinforced low cholesterol diet Has not had any follow up labs done recently - labs done a couple of weeks ago were non-fasting labs and did not include her cholesterol levels Continue Atorvastatin 20 mg QD for now Will recheck her labs and fasting lipids in 3 months for follow up (3) Chest pain: Comment: (+) Hx of AVNRT s/p ablation of slow pathway in 2012 Code(s): R07.9 - Chest pain, unspecified Qualifiers: Chest pain type: unspecified Qualified Code(s): R07.9 - Chest pain, unspecified Plan: Had stress EKG done in September 2022, which was suggestive of ischemia but nuclear stress testing came out normal States that she just had a cardiac MRI done at [facility] earlier today Follow up with cardiology as scheduled (4) Skin tag: Code(s): L91.8 - Other hypertrophic disorders of the skin Plan: Per request, will refer her to dermatology for consideration for excision of the skin tag on her right arm (5) Smoker: Code(s): F17.200 - Nicotine dependence, unspecified, uncomplicated Plan: Counseled again on smoking cessation Plan Follow up in 3 months Orders: Orders Complete Blood Count Auto Diff 3 Months I10 - Essential (primary) hypertension Comprehensive Rover. Panel Fast 3 Months E78.00 - Pure hypercholesterolemia, unspecified TSH reflex Free T4 3 Months E78.00 - Pure hypercholesterolemia, unspecified UA CC w/rflx Micro + Cult 3 Months R30.0 - Dysuria Microalbumin, Random (w Creat) 3 Months E11.9 - Type 2 diabetes mellitus without complications Hemoglobin A1c 3 Months E11.9 - Type 2 diabetes mellitus without complications AMB Hemoglobin A1c 02/18/23 Z13.9 - Encounter for screening, unspecified Lipid Panel 3 Months E78.00 - Pure hypercholesterolemia, unspecified Vitamin D 25-OH Total 3 Months E55.9 - Vitamin D deficiency, unspecified Vitamin B12 and Folate 3 Months E53.8 - Deficiency of other specified B group vitamins Referrals Dermatology Referral L91.8 - Other hypertrophic disorders of the skin Medications: New Farxiga (dapagliflozin propanediol) 10 mg PO QAM 90 tabs 1RF 90 days NS Coding Level of Care Code Est Pt Level 4 (19396) Diagnoses Type 2 diabetes mellitus with hyperglycemia, without long-term current use of insulin E11.65 Diabetes mellitus complication status: with hyperglycemia Diabetes mellitus termite exterminator helper insulin use: without termite exterminator helper use Diabetes mellitus type: type 2 Pure hypercholesterolemia E78.00 Chest pain, unspecified type R07.9 Chest pain type: unspecified Skin tag L91.8 Smoker F17.200
== END 2023-02-18 15:05 | disposition home or self-care (01) ==
PROVIDERS: PCP Internal Medicine; Visit Provider Internal Medicine
DX: E11.9 Type 2 diabetes mellitus without complications (principal)
CPT/HCPCS: 83036; 99214

== ENCOUNTER 2023-07-26 15:33 | Outpatient (AMB) | payer OTHER, SELFPAY ==
[2023-07-26 15:34] VITALS: BP 124/82; PULSE 70; O2SAT 100; BMI 22.0
--- NOTE | 2023-07-26 15:34 | MHC.PC.OV ---
Vital Signs 07/26/23 15:34 Height 5 ft 4 in Weight 128 lb BMI 22.0 BP 124/82 Blood Pressure Location Lt brachial Position Sitting Pulse 70 Pulse Source Pulse Oximeter Pulse Oximetry (%) 100 Oxygen Delivery Method Room Air Intake Visit Reasons: 3 month f/u- see comments Allergies metformin Adverse Reaction (Intermediate, Verified 07/26/23 16:07) Abdominal Pain Medication List - Last Reconciled 07/26/23 by Pascual King MD atorvastatin 20 mg PO BEDTIME 90 days blood sugar diagnostic (FreeStyle Lite Strips) 1 strip miscellaneous TID blood sugar diagnostic As directed blood-glucose meter (FreeStyle [place] Lite kit) As directed dulaglutide (Trulicity) 4.5 mg (0.5 mL) subcut QWEEK Farxiga (dapagliflozin propanediol) 10 mg PO QAM 90 days NS lancets (FreeStyle Lancets) As directed Tobacco use date assessed: 07/26/23 Fall risk assessment: No Falls in past year Last assessed Fall Risk: 07/26/23 Dental Screening Dental Screen Date: 07/26/23 Did you have a dental visit in the last 12 months?: Yes Did you have a dental problem in the last 6 months where you did not have access to dental care?: No Was dental information given to patient?: Patient has dentist HPI 3 month f/u- see comments HPI Details Patient comes in today for her follow up visit States that she feels okay Is currently still having some issues with her teeth and is hoping that we can approve for her to get her needed dental work done soon States that her dentist will not schedule her until we clear her for the procedure She admits that she was in [place] for a few months recently and was drinking more than a couple of bottles of [place] almost on a daily basis while she was in [place] States that she is taking both of her diabetes medications as prescribed but her Trulicity has not been refilled since July of 2022 so it looks like compliance is a big contributor here to her uncontrolled diabetes Her HgbA1c was at 14% when she was last seen here in February 2023 and it is still >14.0% today She denies any headaches or dizziness Denies any chest pains, no SOB No nausea/vomiting, no abdominal pain No change in bowel habits noted Adds that she has a raised lesion on her right forearm that she's had for a while now and would like to see if we can just prescribe her something to use on it to make it fall off States that she will need both of her Rx refilled She also has not had any follow up labs done recently [facility] Medical History Smoker Pure hypercholesterolemia Diabetes mellitus Nephrolithiasis AVNRT (AV louisa re-entry tachycardia) Valvular heart disease Essential hypertension Hyperlipidemia LDL goal <70 Type 2 diabetes mellitus with diabetic polyneuropathy Surgical History Hx of hemorrhoidectomy Status post catheter ablation of slow pathway (~07/01/12) S/P HANNY-BSO (total abdominal hysterectomy and bilateral salpingo-oophorectomy) History of ectopic History of section Family History Father Prostate cancer Mother Natural Father FH: prostate cancer Mother Alive and well Social History Household Members: Children Household Members Other:: son Housing: House Alcohol intake: never Patient Tobacco Use Status: Current everyday Tobacco user Tobacco use type: Cigarette Cigarette Packs Per Day: 1 Cigarettes Per Day: 20 e-Cigarette/Vaping Use: Never Used Second Hand Smoke Exposure: Yes service: No Current occupational status: retired Cognitive needs: No Hearing needs: No Vision needs: Yes (Glasses) Questionnaire PHQ-9 Over the last 2 weeks, how often have you been bothered by any of the following problems? 1. Little interest or pleasure in doing things: not at all 2. Feeling down, depressed, or hopeless: several days 3. Trouble falling or staying asleep, or sleeping too much: several days 4. Feeling tired or having little energy: several days 5. Poor appetite or overeating: more than half the days 6. Feeling bad about yourself - or that you are a failure or have let yourself or your family down: not at all 7. Trouble concentrating on things, such as reading the newspaper or watching television: not at all 8. Moving or speaking so slowly that other people could have noticed. Or the opposite - being so fidgety or restless that you have been moving around a lot more than usual: not at all 9. Thoughts that you would be better off or of hurting yourself in some way: not at all Total score: 5 Depression Screening Interpretation: Positive Depression Screening Follow-up: Existing condition and Follow-up Visit Requested Depression Screening Done: Yes [id number] - PHQ-9 Billing: Yes Source: Developed by Drs. John Gregory, Gris Worthy, Elias Justice and colleagues, with an educational franco from [employer]. Thrive Questionnaire Date Thrive assessed: 07/26/23 I am a: Patient What is your living situation today?: I have a steady place to live Within the past 12 months, did the food you bought not last and you didn't have the money to get more?: Never true Within the past 12 months, did you worry whether your food would run out before you got money to buy more?: Never true Do you have trouble paying for medicines?: No Do you have trouble getting transportation to medical appointments?: No Do you have trouble paying your heating and electricity bill?: No Do you have trouble taking care of your child, family member or friend?: No Do you have trouble with day-to-day activities such as bathing, preparing meals, shopping, managing finances, etc.?: No Are you currently unemployed and looking for a job?: No Are you interested in more education?: No Please select the resources that you would like help with: None Currently or been in a relationship where the following occur: no concerns reported THRIVE Score: 0 AUDIT C Alcohol Use Questionnaire (AUDIT-C) 1. How often do you have a drink containing alcohol?: Never 3. How often do you have six or more drinks on one occasion?: Never Total Score: 0 Score Reviewed/Action Taken: Yes BETTY-7 AMB Questionnaire BETTY-7 Date BETTY - 7 assessed: 07/26/23 Feeling nervous, anxious, or on edge: 0 = Not at all Not being able to stop or control worryin = Not at all Worrying too much about different things: 0 = Not at all Trouble relaxin = Not at all Being so restless that it is hard to sit still: 0 = Not at all Becoming easily annoyed or irritable: 0 = Not at all Feeling afraid as if something awful might happen: 0 = Not at all Total BETTY-7 score (0-4 normal; 5-9 mild; 10-14 moderate; 15-21 severe): 0 Source: Developed by Drs. John Gregory, Gris Worthy, Elias Justice and colleagues, with an educational franco from [employer]. Review of Systems Const Denies chills, Denies fatigue, Denies fever(s) and Denies headache(s) ENT Reports dental pain, Denies dysphagia, Denies dizziness, Denies otalgia, Denies headache(s), Denies neck pain, Denies odynophagia and Denies sore throat Card Denies chest pain, Denies palpitations and Denies dyspnea Resp Denies cough and Denies dyspnea GI Denies abdominal pain, Denies constipation, Denies dysphagia, Denies heartburn, Denies diarrhea, Denies nausea, Denies odynophagia and Denies vomiting Denies difficulty voiding, Reports nocturia and Denies dysuria Musc Denies back pain and Denies neck pain Skin/Breast Details: (+) raised lesion on the right forearm Denies rash Neuro Denies dizziness and Denies headache(s) Endo Denies fatigue and Denies palpitations Physical exam (Primary Care) Vital Signs: Last Vital Signs Pulse 70 07/26/23 15:34 BP 124/82 07/26/23 15:34 Pulse Ox 100 07/26/23 15:34 Oxygen Delivery Method Room Air 07/26/23 15:34 BMI result Body Mass Index 22.0 Tobacco/Smoking Status: Tobacco use Status Tobacco use date assessed 07/26/23 07/26/23 15:38 Patient Tobacco Use Status Current everyday Tobacco 07/26/23 15:38 Tobacco use type Cigarette 07/26/23 15:38 e-Cigarette/Vaping Use Never Used 07/26/23 15:38 PHQ-9: PHQ-9 Score PHQ-9: Total score 5 07/26/23 16:00 Depression Screening Interpretation: Positive Depression Screening Follow-up: Existing condition and Follow-up Visit Requested Thrive Assessment: Date of Thrive Assessment Date Thrive assessed 07/26/23 07/26/23 15:38 Currently or been in a relationship where the following occur: no concerns reported Const General: no acute distress and alert HENMT Ears: TM's normal bilaterally and EAC's normal Throat: Yes posterior oropharynx normal and Yes tonsils normal Neck Neck: Yes no lymphadenopathy and Yes supple Resp Auscultation: clear to auscultation bilaterally, no rales and no wheezes Cardio Rate: regular rate Rhythm: regular rhythm Heart sounds: no murmurs GI Palpation (GI): Soft to palpation and nontender Auscultation: normal bowel sounds Skin Other: (+) raised skin tag on the right arm Rashes: no rashes Extrem General: Yes no clubbing, cyanosis or edema Results AMB Hemoglobin A1c AMB Hemoglobin A1c > 14 % Last Edit by CRISTI Chen on 07/26/23 16:02 Results Reviewed Results Reviewed: Laboratory Last Values Hgb A1c (Clinic) > 14 % (4.0-6.0) H 07/26/23 15:42 Assessment and Plan Assessment & Plan (1) Uncontrolled diabetes mellitus with hyperglycemia: Code(s): E11.65 - Type 2 diabetes mellitus with hyperglycemia Qualifiers: Diabetes mellitus type: type 2 Qualified Code(s): E11.65 - Type 2 diabetes mellitus with hyperglycemia Plan: In-office HgbA1c done today is >14.0% (she was also at 14.0% back in February 2023 - goal is <7.0% Reinforced diabetic diet Compliance is the main issue here as patient has not had her Trulicity refilled since July 2022 even though she says she has been taking all of her meds as prescribed She also admits to drinking several bottles of [place] daily when she spent some time (2 to 3 months) in [place] earlier this year She is advised that she should completely eliminate ALL sweet drinks, including those that are labeled as zero calories and should also try to improve on her diabetic diet - low carb/low calorie She is advised to continue on her Jardiance 10 mg QD and start back on Trulicity 4.5 mg SQ once a week - Rx refilled Is advised that at this time, with her diabetes completely uncontrolled, I would not recommend she go for any surgery as she will likely just end up with post op complications due to her uncontrolled blood sugar We will also try to get her back in with personal injury specialist and diabetic educators here although these will likely take some time - referrals done Will also send her for some labs SANDY for further evaluation (2) Skin tag: Code(s): L91.8 - Other hypertrophic disorders of the skin Plan: She is advised that I would not recommend any prescription for her right forearm lesion but she should see dermatology to have that addressed - referral done The same referral was done last February 2023 but it looks like patient was never seen (3) Pure hypercholesterolemia: Code(s): E78.00 - Pure hypercholesterolemia, unspecified Plan: Reinforced low cholesterol diet Has not had any follow up labs done recently - labs done last year were non-fasting labs and did not include her cholesterol levels Continue Atorvastatin 20 mg QD Will recheck her labs and fasting lipids in 3 months for follow up (4) Chest pain: Comment: (+) Hx of AVNRT s/p ablation of slow pathway in 2012 Code(s): R07.9 - Chest pain, unspecified Qualifiers: Chest pain type: unspecified Qualified Code(s): R07.9 - Chest pain, unspecified Plan: Had stress EKG done in September 2022, which was suggestive of ischemia but nuclear stress testing came out normal States that she just had a cardiac MRI done at [facility] back in February 2023 Follow up with cardiology as scheduled (5) Smoker: Code(s): F17.200 - Nicotine dependence, unspecified, uncomplicated Plan: Counseled again on smoking cessation Plan Follow up in 3 months Orders: Orders AMB Hemoglobin A1c Today E11.9 - Type 2 diabetes mellitus without complications Complete Blood Count Auto Diff Today D64.9 - Anemia, unspecified Lipid Panel Today E78.00 - Pure hypercholesterolemia, unspecified TSH reflex Free T4 Today E78.00 - Pure hypercholesterolemia, unspecified Vitamin D 25-OH Total Today E55.9 - Vitamin D deficiency, unspecified Vitamin B12 and Folate Today E53.8 - Deficiency of other specified B group vitamins C Peptide Today E11.9 - Type 2 diabetes mellitus without complications Comprehensive [address]. Panel Fast 3 Months E78.00 - Pure hypercholesterolemia, unspecified Lipid Panel 3 Months E78.00 - Pure hypercholesterolemia, unspecified Hemoglobin A1c 3 Months E11.9 - Type 2 diabetes mellitus without complications Comprehensive [address]. Panel Fast Today E78.00 - Pure hypercholesterolemia, unspecified UA CC w/rflx Micro + Cult Today R30.0 - Dysuria Microalbumin, Random (w Creat) Today E11.9 - Type 2 diabetes mellitus without complications Glutamic acid decarboxylase Ab Today E11.9 - Type 2 diabetes mellitus without complications Referrals Nutrition/Dietitian Referral E11.65 - Type 2 diabetes mellitus with hyperglycemia Dermatology Referral L91.8 - Other hypertrophic disorders of the skin Diabetes Education Referral E11.65 - Type 2 diabetes mellitus with hyperglycemia Medications: Refilled Farxiga (dapagliflozin propanediol) 10 mg PO QAM 90 days 90 tabs 1RF NS dulaglutide (Trulicity) 4.5 mg (0.5 mL) subcut QWEEK 2 mL 6RF Coding Level of Care Code Est Pt Level 4 (79152) Diagnoses Uncontrolled type 2 diabetes mellitus with hyperglycemia E11.65 Diabetes mellitus type: type 2 Skin tag L91.8 Pure hypercholesterolemia E78.00 Chest pain, unspecified type R07.9 Chest pain type: unspecified Smoker F17.200
== END 2023-07-26 16:18 | disposition home or self-care (01) ==
PROVIDERS: PCP Internal Medicine; Visit Provider Internal Medicine
DX: E11.65 Type 2 diabetes mellitus with hyperglycemia (principal); L91.8 Other hypertrophic disorders of the skin; E78.00 Pure hypercholesterolemia, unspecified; R07.9 Chest pain, unspecified; F17.200 Nicotine dependence, unspecified, uncomplicated; E11.9 Type 2 diabetes mellitus without complications
CPT/HCPCS: 83036; 99214

== ENCOUNTER 2023-08-06 10:36 | Outpatient (REF) | payer OTHER, SELFPAY ==
[2023-08-06 11:03] LABS: MANUAL DIFF FLAG NO
[2023-08-06 11:56] LABS: Basophils Percent Auto 0.6 % (0-2); Eosinophils Absolute Auto 0.1 X10*3/uL (0.0-0.4); Eosinophils Percent Auto 0.7 % (0-4); Hematocrit 38.8 % (37.0-47.0); Hemoglobin 13.2 g/dl (12.0-16.0); Imm Gran Abs Auto 0.04 X10*3/uL (0.00-0.03); Imm Gran Pct Auto 0.6 % (0.0-0.4); Lymphocytes Absolute Auto 1.9 X10*3/uL (1.2-4.9); Lymphocytes Percent Auto 27.8 % (20-40); Mean Corpuscular Hemoglobin 29.5 pg (27.0-33.0); Mean Corpuscular Volume 86.8 fL (80.0-98.0); Mean Platelet Volume 11.1 fL (9.4-12.3); Monocytes Absolute Auto 0.4 X10*3/uL (0.1-1.2); Monocytes Percent Auto 5.4 % (2-11); Neutrophils Absolute Auto 4.3 x10*3/uL (2.0-8.3); Neutrophils Percent Auto 64.9 % (45-73); Platelet Count 215 X10*3/uL (160-400); Red Blood Count 4.47 X10*6/uL (4.20-5.50); Red Cell Distribution Width 12.5 % (11.0-16.0); White Blood Count 6.7 X10*3/uL (4.8-10.8)
[2023-08-06 12:07] LABS: Hemoglobin A1c % > 14.0 % (<6.0)
[2023-08-06 12:36] LABS: Appearance Urine Clear; Color Urine Yellow; Glucose Urine UA >=1000 mg/dL (Negative); Leukocyte Esterase Urine Negative (Negative); Nitrite Urine Negative (Negative); Specific Gravity - Urine >= 1.030 (1.005-1.025); UMIC TRIGGER UACC YES; Urine Blood Negative (Negative); Urine Ketones Negative (Negative); Urine Protein Negative (Neg-Trace)
[2023-08-06 12:38] LABS: Creatinine Urine 104.58 mg/dL; Microalbum/Creatinine Ratio Ur 16.2 ug/mg cr (<30)
[2023-08-06 12:46] LABS: Bacteria Urine None Seen (None Seen); Hyaline Casts Urine 0-2 /LPF (0-2); RBC Urine 0-2 /HPF (0-2); Squamous Epithelial Cell Urine 0-2 /HPF (0-2); WBC Urine 0-5 /HPF (0-5)
[2023-08-06 12:48] LABS: Alanine Aminotransferase 10 U/L (0-31); Albumin Level 3.8 g/dL (3.5-5.0); Alkaline Phosphatase 109 U/L (39-117); Anion Gap 10 (12-20); Aspartate Amino Transferase 10 U/L (5-31); Bilirubin Total 0.6 mg/dL (0.0-1.0); Blood Urea Nitrogen 9 mg/dL (9-16); Calcium 9.4 mg/dL (8.4-10.2); Carbon Dioxide 29 mmol/L (22-29); Chloride 105 mmol/L (96-108); Cholesterol 214 mg/dL (<200); Estimated Glomerular Filt Rate > 60; Glucose Fasting 320 mg/dL (60-99); HDL Cholesterol 45 mg/dL (>40); LDL Cholesterol Calculated 144 mg/dL (<100); Sodium 140 mmol/L (135-145); Total Protein 6.6 g/dL (6.5-8.0); Triglycerides 127 mg/dL (<150)
[2023-08-06 12:57] LABS: TSH reflex Free T4 0.86 uIU/mL (0.32-4.0); Vitamin D 25-OH Total 28.6 ng/mL (>30)
[2023-08-06 13:13] LABS: Folate 12.8 ng/mL (> or = 4.0); Vitamin B12 334 pg/mL (200-900)
[2023-08-07 06:38] LABS: C Peptide 1.51 ng/mL (0.80-3.85)
[2023-08-08 16:18] LABS: Glutamic acid decarboxylase Ab <5 IU/mL (<5)
== END 2023-08-06 10:37 | disposition home or self-care (01) ==
LOC: HO.LAB 10:36
PROVIDERS: PCP Internal Medicine; Visit Provider Internal Medicine
DX: I10 Essential (primary) hypertension (principal); E78.00 Pure hypercholesterolemia, unspecified; E11.9 Type 2 diabetes mellitus without complications; E53.8 Deficiency of other specified B group vitamins; E55.9 Vitamin D deficiency, unspecified
CPT/HCPCS: 36415; 80053; 80061; 81001; 81003; 82043; 82306; 82570; 82607; 82746; 83036; 84443; 84681; 85025; 86341

== ENCOUNTER 2023-08-07 12:16 | Outpatient (AMB) | payer OTHER, SELFPAY ==
--- NOTE | 2023-08-07 12:33 | MHC.AMNUTRGE ---
VS Expanded 08/07/23 13:49 Height 5 ft 4 in Weight 127 lb BMI 21.8 Intake Visit Reasons: T2DM/LVM Allergies metformin Adverse Reaction (Intermediate, Verified 07/26/23 16:07) Abdominal Pain Nutrition Presentation Details: Pt presents for MNt for T2DM Not able to sleep , reports eating late at [place] : crackers with coffee with flavored creamer 8 am coffee with bread or plantain fried with eggs , akil 2pm : at a friend's: taco rice/beans and sausage and fruit salad 6-7 coffee with slice of bread 10 pm papaya or tuna with crackers or 2 slice of bread 2am coffee with crackers soda with butter pt is not monitoring gblood glucose Pt rports she is on Trulcity 4.5 mg per week, on Farxiga 10 mg /d BS Monitoring Most Recent Diabetes Results: Microalb/Creat Ratio 16.2 ug/mg cr (<30) 08/06/23 Cholesterol 214 mg/dL (<200) H 08/06/23 HDL Cholesterol 45 mg/dL (>40) 08/06/23 Triglycerides 127 mg/dL (<150) 08/06/23 Creatinine 0.77 mg/dL (0.5-1.4) 08/06/23 Blood Urea Nitrogen 9 mg/dL (9-16) 08/06/23 Sodium 140 mmol/L (135-145) 08/06/23 Potassium 4.0 mmol/L (3.3-5.1) 08/06/23 Chloride 105 mmol/L (96-108) 08/06/23 Carbon Dioxide 29 mmol/L (22-29) 08/06/23 Calcium 9.4 mg/dL (8.4-10.2) 08/06/23 AST 10 U/L (5-31) 08/06/23 ALT 10 U/L (0-31) 08/06/23 Total Protein 6.6 g/dL (6.5-8.0) 08/06/23 Albumin 3.8 g/dL (3.5-5.0) 08/06/23 HPJ-Rkupcbn-Xb.Jeor Equation Height: 5 ft 4 in Weight: 127 lb Resting Metabolic Rate: 1086.09 Calculated Activity Level: Mild Activity Calories Needed to Maintain Weight: 1493.37 Diagnosis Nutrition problem #1: altered nutrition labs As related to (etiology) #1: diagnosis As evidenced by (sign/symptom) #1: knowledge deficit of diet PFSH Medical History Smoker Pure hypercholesterolemia Diabetes mellitus Nephrolithiasis AVNRT (AV louisa re-entry tachycardia) Valvular heart disease Essential hypertension Hyperlipidemia LDL goal <70 Type 2 diabetes mellitus with diabetic polyneuropathy Surgical History Hx of hemorrhoidectomy Status post catheter ablation of slow pathway (~07/01/12) S/P HANNY-BSO (total abdominal hysterectomy and bilateral salpingo-oophorectomy) History of ectopic History of section Family History Father Prostate cancer Mother Natural Father FH: prostate cancer Mother Alive and well Social History Household Members: Children Household Members Other:: son Housing: House Alcohol intake: never Patient Tobacco Use Status: Current everyday Tobacco user Tobacco use type: Cigarette Cigarette Packs Per Day: 1 Cigarettes Per Day: 20 e-Cigarette/Vaping Use: Never Used Second Hand Smoke Exposure: Yes service: No Current occupational status: retired Cognitive needs: No Hearing needs: No Vision needs: Yes (Glasses) Assessment & Plan Assessment & Plan (1) Diabetes mellitus: Code(s): E11.9 - Type 2 diabetes mellitus without complications Category: Medical Qualifiers: Diabetes mellitus type: type 2 Diabetes mellitus senior care insulin use: without senior care use Diabetes mellitus complication status: with hyperglycemia Qualified Code(s): E11.65 - Type 2 diabetes mellitus with hyperglycemia Plan: Wt: 58 Kg ( 07/2023 ) Est kcal needs as per MSJ: 1600 (40% carb, 30% protein/fat) Est fluid needs as per 25-30 ml/d: 1740 Est prot per day as per 1 g/kg bw: 58 Recommend fiber intake : 8-10 g per day and gradually increase to 25-28 g per day for women and 35-38 g for men or as tolerated Recommend sodium intake per day : less than 2000 mg Educated patient on: ( R = reviewed V = verbalizes understanding N/R = needs review N/A = not applicable Food sources of carbohydrate, adequate serving sizes and its role in various health conditions: R Differences between complex carbohydrates a simple carbohydrates, role of fiber in diet: R Lean protein sources of foods: R Differences between types of fats and role in diet (mono on saturated fat fatty acids, saturated fatty acids, trans fats): R V N/R Food sources of sodium in salt and healthy modifications for heart health in kidney health: R V R/V Vitamins and minerals: R V N/R Healthy plate method concept: R V N/R Physical activity: Benefits a precaution: R Hypoglycemia protocol (rule of 15): R V N/R Dietary prevention of Hyperglycemia: R Patient Instructions: Follow healthy plate method including protein in your meals at least 3 oz portion and 1-2 oz portion of protein as snack Reduce on portion of crackers/pastries and opt for yogurt see meal plan for ideas Coding Level of Care Code Nutr Indiv Intake (45473) Diagnoses Type 2 diabetes mellitus with hyperglycemia, without long-term current use of insulin E11.65 Diabetes mellitus type: type 2 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
[2023-08-07 13:49] VITALS: BMI 21.8
[2023-08-13 13:54] VITALS: BMI 21.8
== END 2023-08-07 13:10 | disposition home or self-care (01) ==
PROVIDERS: PCP Internal Medicine; Visit Provider Dietitian, Registered
DX: E11.65 Type 2 diabetes mellitus with hyperglycemia (principal)

== ENCOUNTER 2023-08-07 12:16 | Outpatient (AMB) | payer OTHER, SELFPAY ==
--- NOTE | 2023-08-07 13:50 | A.OFFVIS_ITS ---
Intake Intake Visit Reasons: Type 2 diabetes/CONFIRMED Web Marketing Coordinator Required: Yes Web Marketing Coordinator Language: Shipping Clerk Packing Name: Ze[facility] [place] Allergies metformin Adverse Reaction (Intermediate, Verified 07/26/23 16:07) Abdominal Pain HPI Comprehensive Diabetes Asmnt Most Recent Diabetes Results: Hemoglobin A1c 6.6 % 09/22/19 Microalb/Creat Ratio 16.2 ug/mg cr (<30) 08/06/23 Cholesterol 214 mg/dL (<200) H 08/06/23 HDL Cholesterol 45 mg/dL (>40) 08/06/23 Triglycerides 127 mg/dL (<150) 08/06/23 Creatinine 0.77 mg/dL (0.5-1.4) 08/06/23 Blood Urea Nitrogen 9 mg/dL (9-16) 08/06/23 Sodium 140 mmol/L (135-145) 08/06/23 Potassium 4.0 mmol/L (3.3-5.1) 08/06/23 Chloride 105 mmol/L (96-108) 08/06/23 Carbon Dioxide 29 mmol/L (22-29) 08/06/23 Calcium 9.4 mg/dL (8.4-10.2) 08/06/23 AST 10 U/L (5-31) 08/06/23 ALT 10 U/L (0-31) 08/06/23 Total Protein 6.6 g/dL (6.5-8.0) 08/06/23 Albumin 3.8 g/dL (3.5-5.0) 08/06/23 [facility] Medical History Smoker Pure hypercholesterolemia Diabetes mellitus Nephrolithiasis AVNRT (AV louisa re-entry tachycardia) Valvular heart disease Essential hypertension Hyperlipidemia LDL goal <70 Type 2 diabetes mellitus with diabetic polyneuropathy Surgical History Hx of hemorrhoidectomy Status post catheter ablation of slow pathway (~07/01/12) S/P HANNY-BSO (total abdominal hysterectomy and bilateral salpingo-oophorectomy) History of ectopic History of section Family History Father Prostate cancer Mother Natural Father FH: prostate cancer Mother Alive and well Social History Household Members: Children Household Members Other:: son Housing: House Alcohol intake: never Patient Tobacco Use Status: Current everyday Tobacco user Tobacco use type: Cigarette Cigarette Packs Per Day: 1 Cigarettes Per Day: 20 e-Cigarette/Vaping Use: Never Used Second Hand Smoke Exposure: Yes service: No Current occupational status: retired Cognitive needs: No Hearing needs: No Vision needs: Yes (Glasses) Assessment & Plan Assessment & Plan (1) Uncontrolled diabetes mellitus with hyperglycemia: Code(s): E11.65 - Type 2 diabetes mellitus with hyperglycemia Qualifiers: Diabetes mellitus type: type 2 Qualified Code(s): E11.65 - Type 2 diabetes mellitus with hyperglycemia Plan: Diabetes self-management education and support participation record Assessment/scale: 1= needs instructed? 2= needs review? 3= comprehend keep point? 4= demonstrates understanding/ competent? NC= Not Covered Topics Learning Objective: Initial visit Initial or post srvc Initial or post srvc Initial or post srvc Initial or post srvc Initial or post srvc Post srvc Comments Pre Edu-assessment/plan Outcome or reassess Outcome or reassess Outcome or reassess Outcome or reassess Outcome or reassess Outcome or reassess Diabetes pathophysiology Healthy eating Being active Taking medication Monitoring glucose Acute complication Chronic complicated Lifestyle and healthy coping Diabetes distress in support ?Diabetes pathophysiology: ?Defined diabetes med identify own type of diabetes; list 3 options for treating diabetes Healthy eating: ?Described effect of type, amount and ?timing of food on blood glucose; list 3 methods for planning meal Being active: ?State effect of exercise on blood glucose level Taking medication: ?State effect of diabetes medications on diabetes; name diabetes medications taking, action and side effects Monitoring glucose: ?Identify recommended blood glucose targets and personal tar get Acute complication: ?List symptoms and treatment of hyper and hypoglycemia, DKA, sick day guidelines and guidelines for severe weather or situations of crisis and diabetes supply manage Chronic complication: ?To find the relationship of blood glucose levels to long- term complications of diabetes in screening and preventative measures Lifestyle and healthy coping: ?Described lifestyle and healthy coping strategies to rule out diabetes self-management Diabetes to stress and support: ?Recognize Diabetes to stress and be able to identified support options Learning objectives: The patient was provided with verbal and written education on the following topics as outlined below. The patient met all learning objectives and was able to verbalize understanding and provide teach back of education topics discussed . The patient was provided with the opportunity to ask questions and all questions were answered. Patient Assessment Assess patient education level/literacy/barriers, patient identified foods from carb list that she is currently eating Patient questions/concerns, patient's last A1c on 08/06/2023 greater than 14 %. Patient is currently prescribed Trulicity 4.5 mg weekly, and Farxiga 10 mg daily. Patient admitted she frequently forgets to take Farxiga. After reviewing PCP note he noted that her Trulicity prescription had not been picked up since 2022. Discussed with patient the importance of taking diabetes medications the way that they are prescribed to help with glucose control. Along with physical activity and meal planning, this can be helpful in controlling glucose levels Patient was referred to Endocrinology in October 2022, but has not seen Dr. Hudson yet. Instructed patient to set up appointment with Dr. Hudson after this visit. What is Diabetes? Pathophysiology How the body produces and uses insulin Identify type of DM Risk factors Signs of Diabetes Brief overview of Diabetes Management Monitoring blood sugar Following a meal plan Regular exercise Maintaining a healthy weight Taking medication as needed Members of the care team (PCP, RN, MA, RD, CDE, test hole driller) Blood glucose monitoring When/how often to test Target blood sugar ranges Patient is not currently checking her blood sugars Message sent to PCP to send prescription for blood glucose meter, strips, lancets Introduction to Nutrition Importance of healthy diet in managing DM Diet is personalized to individual preference Review patient?s regular diet/food preferences Who prepares meals/does food shopping/ Dining out?/ Barriers? How diet effects glucose Eating 3 balanced meals a day with small, healthy snacks between meals Review food groups Carbohydrates: What is a carbohydrate/Which food/food groups are considered carbohydrates Effect of carbohydrates on blood glucose Portion sizes Reading food labels Basic carb counting (if applicable per nursing assessment) Plate method Meal planning Recommendations: Follow plate method, consistent carbs and read nutritional labels. Smart Goal: Patient will use carb list to identify foods that she is currently eating that contain carbohydrate before next Diabetes Education visit. Educational Materials: The patient was provided with the following written educational materials: Planning Healthy Meals, Target Goals Handouts in Yi Patient Response to instructions: Comprehension of Instructions: Fair Readiness to make changes: Contemplation How confident they feel about making changes: Fair Portions of this note were created using voice recognition software, please excuse any words or phrases that may have been misinterpreted. Patient Instructions: Incluir actividad diaria regular. ADA recomienda 30 minutos de ejercicio 5 d?as a la semana. P?rdida de peso, hable con el PCP o el cardi?logo antes de comenzar un nuevo plan. Mida el nivel de az?car en la luis enrique seg?n las indicaciones; Ayuno y comida m?s carter de 2hpp. Observe las tendencias en los resultados. Utilice los resultados y eval?e c?mo los alimentos, la actividad f?sheela y los medicamentos afectan los resultados de az?car en la luis enrique. Lleve el gluc?metro o CGM a la pr?xima visita. Conocer los medicamentos para la diabetes, mcmillan acci?n, los efectos secundarios, la eficacia, la toxicidad, la dosis prescrita, el momento y la frecuencia de administraci?n apropiados, el efecto de las dosis olvidadas y retrasadas y las instrucciones de almacenamiento, viaje y seguridad. T?cnicas de resoluci?n de problemas para el seguimiento de episodios de hipo/hiperglucemia y tratamientos. Reducir los comportamientos de reducci?n de riesgos, dejar de fumar, ex?menes regulares de ojos, pies y dentales. Coding Level of Care Code Est Pt Level 1 (00535) Diagnoses Uncontrolled type 2 diabetes mellitus with hyperglycemia E11.65 Diabetes mellitus type: type 2
== END 2023-08-07 13:58 | disposition home or self-care (01) ==
PROVIDERS: PCP Internal Medicine; Visit Provider Registered Nurse Diabetes Educator
DX: E11.65 Type 2 diabetes mellitus with hyperglycemia (principal)

== ENCOUNTER → 2023-08-07 12:16 | Outpatient (BNVA) | payer OTHER, SELFPAY | PROVIDERS: PCP Internal Medicine; Visit Provider Dietitian, Registered | DX: E11.65 Type 2 diabetes mellitus with hyperglycemia (principal); Z71.3 Dietary counseling and surveillance | CPT/HCPCS: 97802; 99211 ==

== ENCOUNTER 2023-09-18 12:21 | Outpatient (AMB) | payer OTHER, SELFPAY ==
--- NOTE | 2023-09-18 12:36 | A.OFFVIS_ITS ---
VS Expanded 09/18/23 12:49 Height 5 ft 4 in Weight 128 lb 4.944 oz BMI 22.0 Intake Visit Reasons: t2dm/LVM Allergies metformin Adverse Reaction (Intermediate, Verified 07/26/23 16:07) Abdominal Pain Nutrition Presentation Details: Pt presents for MNT for T2DM, uncontrolled Pt reports working on following healthy plate method Admits to increased appetite for dessert types of foods and beverages with sugar Pt reports not monitoring BG and not taking Trulicity for 1-2 weeks due to co ncerns of losing too much weight when taking Trulicity- Pt was advised to discuss these concerns with the steam gigger at the appt on 10/09/2023 for further evaluation BS Monitoring Most Recent Diabetes Results: Microalb/Creat Ratio 16.2 ug/mg cr (<30) 08/06/23 Cholesterol 214 mg/dL (<200) H 08/06/23 HDL Cholesterol 45 mg/dL (>40) 08/06/23 Triglycerides 127 mg/dL (<150) 08/06/23 Creatinine 0.77 mg/dL (0.5-1.4) 08/06/23 Blood Urea Nitrogen 9 mg/dL (9-16) 08/06/23 Sodium 140 mmol/L (135-145) 08/06/23 Potassium 4.0 mmol/L (3.3-5.1) 08/06/23 Chloride 105 mmol/L (96-108) 08/06/23 Carbon Dioxide 29 mmol/L (22-29) 08/06/23 Calcium 9.4 mg/dL (8.4-10.2) 08/06/23 AST 10 U/L (5-31) 08/06/23 ALT 10 U/L (0-31) 08/06/23 Total Protein 6.6 g/dL (6.5-8.0) 08/06/23 Albumin 3.8 g/dL (3.5-5.0) 08/06/23 [facility] Medical History Smoker Pure hypercholesterolemia Diabetes mellitus Nephrolithiasis AVNRT (AV louisa re-entry tachycardia) Valvular heart disease Essential hypertension Hyperlipidemia LDL goal <70 Type 2 diabetes mellitus with diabetic polyneuropathy Surgical History Hx of hemorrhoidectomy Status post catheter ablation of slow pathway (~07/01/12) S/P HANNY-BSO (total abdominal hysterectomy and bilateral salpingo-oophorectomy) History of ectopic History of section Family History Father Prostate cancer Mother Natural Father FH: prostate cancer Mother Alive and well Social History Household Members: Children Household Members Other:: son Housing: House Alcohol intake: never Patient Tobacco Use Status: Current everyday Tobacco user Tobacco use type: Cigarette Cigarette Packs Per Day: 1 Cigarettes Per Day: 20 e-Cigarette/Vaping Use: Never Used Second Hand Smoke Exposure: Yes service: No Current occupational status: retired Cognitive needs: No Hearing needs: No Vision needs: Yes (Glasses) Assessment & Plan Assessment & Plan (1) Diabetes mellitus: Code(s): E11.9 - Type 2 diabetes mellitus without complications Category: Medical Qualifiers: Diabetes mellitus type: type 2 Diabetes mellitus half-way insulin use: without half-way use Diabetes mellitus complication status: with hyperglycemia Qualified Code(s): E11.65 - Type 2 diabetes mellitus with hyperglycemia Plan: Wt: 58 Kg ( 07/2023 ), 58 kg (09/2023) Est kcal needs as per MSJ: 1600 (40% carb, 30% protein/fat) Est fluid needs as per 25-30 ml/d: 1740 Est prot per day as per 1 g/kg bw: 58 Recommend fiber intake : 8-10 g per day and gradually increase to 25-28 g per day for women and 35-38 g for men or as tolerated Recommend sodium intake per day : less than 2000 mg Educated patient on: ( R = reviewed V = verbalizes understanding N/R = needs review N/A = not applicable * Food sources of carbohydrate, adequate serving sizes and its role in various health conditions: R * Differences between complex carbohydrates a simple carbohydrates, role of fiber in diet: R * Lean protein sources of foods: R * Differences between types of fats and role in diet (mono on saturated fat fatty acids, saturated fatty acids, trans fats): R V N/R * Food sources of sodium in salt and healthy modifications for heart health in kidney health: R V R/V * Vitamins and minerals: R V N/R * Healthy plate method concept: R * Physical activity: Benefits a precaution: R * Hypoglycemia protocol (rule of 15): R V N/R * Dietary prevention of Hyperglycemia: R * Acute /chronic complications of hyperglycemia : R Patient Instructions: Continue including protein in your meals (bread with eggs in place of butter as example) -Continue combinando proteinas en marcel comidas (ejemplo anada huevo al torres en vez de con mantequilla thomas) Reduce on high sugar foods (cakes/pastry) chose yogurt, fruit with nuts, glucerna instead - Disminuya las comidas altas en azucares ( postres, dulces, golocinas, bizcochos) escoja, yogurt, glucerna , frutas con nueces Check your blood sugar in the fasting state and before bedtime and bring glucometer to the appointment with the steam gigger on 10/09/23 at 11 am. - Cheque mcmillan azucar en ayuna y antes de acostarse, traiga mcmillan maquina a mcmillan pankaj con el Dr. Hudson el 10/09/2023 a las 11 am Coding Level of Care Code Nutr Indiv Subseq (71713) Diagnoses Type 2 diabetes mellitus with hyperglycemia, without long-term current use of insulin E11.65 Diabetes mellitus type: type 2 Diabetes mellitus half-way insulin use: without half-way use Diabetes mellitus complication status: with hyperglycemia Time Spent (min) 30
[2023-09-18 12:49] VITALS: BMI 22.0
== END 2023-09-18 12:59 | disposition home or self-care (01) ==
PROVIDERS: PCP Internal Medicine; Visit Provider Dietitian, Registered
DX: E11.65 Type 2 diabetes mellitus with hyperglycemia (principal)

== ENCOUNTER → 2023-09-18 12:21 | Outpatient (BNVA) | payer OTHER, SELFPAY | PROVIDERS: PCP Internal Medicine; Visit Provider Dietitian, Registered | DX: E11.65 Type 2 diabetes mellitus with hyperglycemia (principal); Z71.3 Dietary counseling and surveillance | CPT/HCPCS: 97803 ==

== ENCOUNTER 2023-10-14 12:55 | Outpatient (AMB) | payer OTHER, SELFPAY ==
--- NOTE | 2023-10-14 13:49 | A.OFFVIS_ITS ---
Intake Intake Visit Reasons: 60 min/confirmed Allergies metformin Adverse Reaction (Intermediate, Verified 07/26/23 16:07) Abdominal Pain HPI Comprehensive Diabetes Asmnt Most Recent Diabetes Results: Hemoglobin A1c 6.6 % 09/22/19 Microalb/Creat Ratio 16.2 ug/mg cr (<30) 08/06/23 Cholesterol 214 mg/dL (<200) H 08/06/23 HDL Cholesterol 45 mg/dL (>40) 08/06/23 Triglycerides 127 mg/dL (<150) 08/06/23 Creatinine 0.77 mg/dL (0.5-1.4) 08/06/23 Blood Urea Nitrogen 9 mg/dL (9-16) 08/06/23 Sodium 140 mmol/L (135-145) 08/06/23 Potassium 4.0 mmol/L (3.3-5.1) 08/06/23 Chloride 105 mmol/L (96-108) 08/06/23 Carbon Dioxide 29 mmol/L (22-29) 08/06/23 Calcium 9.4 mg/dL (8.4-10.2) 08/06/23 AST 10 U/L (5-31) 08/06/23 ALT 10 U/L (0-31) 08/06/23 Total Protein 6.6 g/dL (6.5-8.0) 08/06/23 Albumin 3.8 g/dL (3.5-5.0) 08/06/23 [facility] Medical History Smoker Pure hypercholesterolemia Diabetes mellitus Nephrolithiasis AVNRT (AV louisa re-entry tachycardia) Valvular heart disease Essential hypertension Hyperlipidemia LDL goal <70 Type 2 diabetes mellitus with diabetic polyneuropathy Surgical History Hx of hemorrhoidectomy Status post catheter ablation of slow pathway (~07/01/12) S/P HANNY-BSO (total abdominal hysterectomy and bilateral salpingo-oophorectomy) History of ectopic History of section Family History Father Prostate cancer Mother Natural Father FH: prostate cancer Mother Alive and well Social History Household Members: Children Household Members Other:: son Housing: House Alcohol intake: never Patient Tobacco Use Status: Current everyday Tobacco user Tobacco use type: Cigarette Cigarette Packs Per Day: 1 Cigarettes Per Day: 20 e-Cigarette/Vaping Use: Never Used Second Hand Smoke Exposure: Yes service: No Current occupational status: retired Cognitive needs: No Hearing needs: No Vision needs: Yes (Glasses) Assessment & Plan Assessment & Plan (1) Uncontrolled diabetes mellitus with hyperglycemia: Code(s): E11.65 - Type 2 diabetes mellitus with hyperglycemia Qualifiers: Diabetes mellitus type: type 2 Qualified Code(s): E11.65 - Type 2 diabetes mellitus with hyperglycemia Plan: Diabetes self-management education and support participation record Assessment/scale: 1= needs instructed? 2= needs review? 3= comprehe nd keep point? 4= demonstrates understanding/ competent? NC= Not Covered Topics Learning Objective: Initial visit Initial or post srvc Initial or post srvc Initial or post srvc Initial or post srvc Initial or post srvc Post srvc Comments Pre Edu-assessment/plan Outcome or reassess Outcome or reassess Outcome or reassess Outcome or reassess Outcome or reassess Outcome or reassess Diabetes pathophysiology 1 Healthy eating B 2 Being active 1 Taking medication 1 Monitoring glucose 1 Acute complication 1 Chronic complicated 1 Lifestyle and healthy coping 1 Diabetes distress in support 1 ?Diabetes pathophysiology: ?Defined diabetes med identify own type of diabetes; list 3 options for treating diabetes Healthy eating: ?Described effect of type, amount and ?timing of food on blood glucose; list 3 methods for planning meal Being active: ?State effect of exercise on blood glucose level Taking medication: ?State effect of diabetes medications on diabetes; name diabetes medications taking, action and side effects Monitoring glucose: ?Identify recommended blood glucose targets and personal target Acute complication: ?List symptoms and treatment of hyper and hypoglycemia, DKA, sick day guidelines and guidelines for severe weather or situations of crisis and diabetes supply manage Chronic complication: ?To find the relationship of blood glucose levels to long- term complications of diabetes in screening and preventative measures Lifestyle and healthy coping: ?Described lifestyle and healthy coping strategies to rule out diabetes self-management Diabetes to stress and support: ?Recognize Diabetes to stress and be able to identified support options Learning objectives: The patient was provided with verbal and written education on the following topics as outlined below. Assess patient education level/literacy/barriers, patient's last A1c in July 2023 was greater than 14%. Patient has not seen DM provider since last Education visit. Has upcoming visit with Dr. Betsy Guaman on 10/23/2023. Patient has not been testing her glucose levels Patient also reports she does not like to take her diabetes medication she would prefer to take vitamins Patient questions/concerns, reviewed with patient the importance of taking prescribe diabetes medications in glucose control. Reviewed both acute and long-term complications from high glucose levels The patient met all learning objectives and was able to verbalize understanding and provide teach back of education topics discussed . The patient was provided with the opportunity to ask questions and all questions were answered. Topics covered in today?s session included: Medications (If applicable) * Name of medication? * Dosing/administration instructions? * Mechanism of action? * Potential side effects? * Potential adverse reaction and appropriate treatment? * Review onset, peak, duration Assess for concerns re: insurance coverage, cost, barriers to compliance Insulin/Injectables (If applicable) * Storage/care of insulin?? * Injection sites? * Site rotation? * Onset, peak, duration * Drawing up insulin? * Injecting insulin/other injectables? * Sharps disposal Continuous blood glucose monitoring (if applicable) Hypoglycemia and Hyperglycemia * Signs and symptoms? * Causes?? * Treatment? * Preventing hypoglycemia? * When to seek medical attention * Blood glucose targets and how you feel when your blood glucose is in and out of your target ranges. * Monitoring and knowing your A1C. * What can make blood glucose go up and down and preventing high and low blood glucose. * Review of blood sugar targets in expected goal range and outside of expected goal range. * Problem solving and preventing hyper/hypoglycemia. * Sick day management of diabetes. * Using blood sugar results in decision making process in managing diabetes. ?Patient was receptive to information provided and participated in the discussion. Asked?appropriate questions and demonstrated good understanding of the topics discussed.? ? Educational Materials: The patient was provided with the following written educational materials: Target Goal handout Smart Goal Assessment:? Patient will identify foods and her current meal plan that contain carbohydrate Pt met goal more than 75% New Smart Goal: Patient will take glucose level at least once a day before her visit with DM PCP on 10/23/2023 Patient Response to instructions: Comprehension of Instructions: Fair Readiness to make changes:? Contemplate How confident they feel about making changes: Fair Portions of this note were created using voice recognition software, please excuse any words or phrases that may have been misinterpreted. Coding Level of Care Code Est Pt Level 1 (70531) Diagnoses Uncontrolled type 2 diabetes mellitus with hyperglycemia E11.65 Diabetes mellitus type: type 2
== END 2023-10-14 14:08 | disposition home or self-care (01) ==
PROVIDERS: PCP Internal Medicine; Visit Provider Registered Nurse Diabetes Educator
DX: E11.65 Type 2 diabetes mellitus with hyperglycemia (principal)

== ENCOUNTER → 2023-10-14 12:55 | Outpatient (BNVA) | payer OTHER, SELFPAY | PROVIDERS: PCP Internal Medicine; Visit Provider Registered Nurse Diabetes Educator | DX: E11.65 Type 2 diabetes mellitus with hyperglycemia (principal); Z71.89 Other specified counseling | CPT/HCPCS: 99211 ==

== ENCOUNTER 2023-10-23 11:05 | Outpatient (AMB) | payer OTHER, SELFPAY ==
--- NOTE | 2023-10-23 11:22 | A.OFFVIS_ITS ---
Vital Signs 10/23/23 11:23 Height 5 ft 4 in Weight 130 lb 1.164 oz BMI 22.3 BP 128/76 Blood Pressure Location Rt brachial Position Sitting Pulse 75 Pulse Source Pulse Oximeter Intake Visit Reasons: T2DM/ LVM w branch operations specialist Intake Note: Patient presents today to re-establish treatment on Type 2 Diabetes Mellitus: Last Diabetic Eye exam: Has been seeing the Prime Broker regularly due to an eye infection Last Podiatry Exam: Does not see a Public Works Commissioner Most recent HbA1c: >14.0%, 08/06/2023, 12.5% 10/23/2023 Random Glucose- 249mg/dL, Today Retail Gift Card Merchandising Required: Yes Retail Gift Card Merchandising Language: Crayon Sawyer Name: CRISTI Lang/CAMILO HOPPER Information Interpreted: non-clinical & clinical Accompanied by: Self / Same As Patient Allergies metformin Adverse Reaction (Intermediate, Verified 10/23/23 11:23) Abdominal Pain Medication List - Last Reconciled 10/23/23 by Minoo Chance MD atorvastatin 20 mg PO BEDTIME 90 days blood sugar diagnostic (FreeStyle Lite Strips) 1 strip miscellaneous BID blood sugar diagnostic As directed blood-glucose meter (FreeStyle [place] Lite kit) As directed blood-glucose meter (FreeStyle Lite Meter kit) As directed dulaglutide (Trulicity) 4.5 mg (0.5 mL) subcut QWEEK Farxiga (dapagliflozin propanediol) 10 mg PO QAM 90 days NS lancets (FreeStyle Lancets) As directed twice a day lancets (FreeStyle Lancets) As directed HPI Comments Details: The patient is a 68-year-old female with a past medical history of type 2 diabetes presenting to reestablish Medical history: htn, hyperlipidemia, HOCM Current prescribed medications: Trulicity 4.5, farxiga. Taking neither medication. Trulicity caused unwanted weight loss. Did not like farxiga. A1C in 07/2023 >14%. Today POC A1C at 12.5%. Recently met with clinical document improvement educator and has instituted some dietary changes. Not checking her glucose readings. It makes her anxious when they are high Micro/macrovascular complications: neuropathy Diet: Fish meat veg at meals. Snack on sugary foods at night ROS see HPI PHYSICAL EXAM: GENERAL: Alert and oriented x 3. NAD EYES: EOMI. Anicteric. HENT: Moist mucous membranes. No scleral icterus. No cervical lymphadenopathy. LUNGS: Clear to auscultation bilaterally. CARDIOVASCULAR: Regular rate and rhythm. No murmur. No JVD. ABDOMEN: Soft, non-tender +bs EXTREMITIES: No edema. Non-tender. SKIN: No rashes or lesions. Warm. NEUROLOGIC: No focal neurological deficits. CN II-XII grossly intact PSYCHIATRIC: Cooperative. Appropriate mood and affect [facility] Medical History Smoker Pure hypercholesterolemia Diabetes mellitus Nephrolithiasis AVNRT (AV louisa re-entry tachycardia) Valvular heart disease Essential hypertension Hyperlipidemia LDL goal <70 Type 2 diabetes mellitus with diabetic polyneuropathy Surgical History Hx of hemorrhoidectomy Status post catheter ablation of slow pathway (~07/01/12) S/P HANNY-BSO (total abdominal hysterectomy and bilateral salpingo-oophorectomy) History of ectopic History of section Family History Father Prostate cancer Mother Natural Father FH: prostate cancer Mother Alive and well Social History Household Members: Children Household Members Other:: son Housing: House Alcohol intake: never Patient Tobacco Use Status: Current everyday Tobacco user Tobacco use type: Cigarette Cigarette Packs Per Day: 1 Cigarettes Per Day: 20 e-Cigarette/Vaping Use: Never Used Second Hand Smoke Exposure: Yes service: No Current occupational status: retired Cognitive needs: No Hearing needs: No Vision needs: Yes (Glasses) Physical Exam Vital Signs: Last Vital Signs Pulse 75 10/23/23 11:23 BP 128/76 10/23/23 11:23 BMI result Body Mass Index 22.3 Results AMB Hemoglobin A1c AMB Hemoglobin A1c 12.5 % Last Edit by CRISTI Lang on 10/23/23 11:5 5 Results Reviewed Results Reviewed: Laboratory Last Values Glucose (Clinic) 249 mg/dL (60-115) H 10/23/23 11:30 Assessment & Plan Assessment & Plan (1) Uncontrolled diabetes mellitus with hyperglycemia: Code(s): E11.65 - Type 2 diabetes mellitus with hyperglycemia Category: Medical Qualifiers: Diabetes mellitus type: type 2 Qualified Code(s): E11.65 - Type 2 diabetes mellitus with hyperglycemia Plan: Discussed the complications of poorly controlled diabetes She is willing to try other oral medications. She will start actos 30mg daily and glipizide ER 5mg daily. She will start checking glucose. She will return in 6 weeks for follow up Orders: Orders AMB Hemoglobin A1c Today E11.65 - Type 2 diabetes mellitus with hyperglycemia Medications: New pioglitazone (Actos) 30 mg PO DAILY 90 days 90 tabs 1RF glipizide ER 5 mg PO DAILY 90 tabs 1RF Coding Level of Care Code Est Pt Level 4 (71379) Diagnoses Uncontrolled type 2 diabetes mellitus with hyperglycemia E11.65 Diabetes mellitus type: type 2
[2023-10-23 11:23] VITALS: BP 128/76; PULSE 75; BMI 22.3
[2023-10-23 11:36] LABS: Glucose, Whole Blood 249 mg/dL (60-115)
== END 2023-10-23 11:54 | disposition home or self-care (01) ==
PROVIDERS: PCP Internal Medicine; Visit Provider Internal Medicine
DX: E11.65 Type 2 diabetes mellitus with hyperglycemia (principal)
CPT/HCPCS: 99214

== ENCOUNTER → 2023-10-23 11:05 | Outpatient (BNVA) | payer OTHER, SELFPAY | PROVIDERS: PCP Internal Medicine; Visit Provider Internal Medicine | DX: E11.65 Type 2 diabetes mellitus with hyperglycemia (principal) | CPT/HCPCS: 82947; 83036; 99212 ==

== ENCOUNTER 2023-10-29 10:23 | Outpatient (REF) | payer OTHER, SELFPAY ==
--- NOTE | ~2023-10-29 | MM_ITS ---
EXAMINATION: MM SCREENING DIGITAL BREAST TOMOSYNTHESIS, BILATERAL CLINICAL INFORMATION: Screening. Asymptomatic. COMPARISON: Mammography: This study is compared with prior exams dating back to 2019. TECHNIQUE: Digital breast tomosynthesis is performed in both the craniocaudal and mediolateral oblique views along with computer-aided detection (CAD). Synthesized 2D images are generated from the tomosynthesis. FINDINGS: There are scattered areas of fibroglandular density (ACR BI-RADS breast composition Category b). There are no significant masses, abnormal calcifications, or other abnormalities. MM/MM tomosynthesis screening BI IMPRESSION: No mammographic evidence of malignancy. ASSESSMENT: BI-RADS BI-RADS 1 - Negative RECOMMENDATION: Routine annual mammography screening. 1 year F/U This examination should not preclude the clinical evaluation of a suspicious palpable abnormality. This patient's information was entered into a reminder system with a target due date for their next mammogram. Electronically signed by: Vicki Miranda MD 11/26/2023 01:12 PM EDT
== END 2023-10-29 10:24 | disposition home or self-care (01) ==
LOC: HO.MAMMO 10:23
PROVIDERS: Visit Provider Internal Medicine
DX: Z12.31 Encounter for screening mammogram for malignant neoplasm of breast (principal)
CPT/HCPCS: 77063; 77067

== ENCOUNTER → 2023-10-29 10:30 | Outpatient (BNV) | payer OTHER, SELFPAY | PROVIDERS: Visit Provider Radiology Diagnostic Radiology | DX: Z12.31 Encounter for screening mammogram for malignant neoplasm of breast (principal) | CPT/HCPCS: 77063; 77067 ==

== ENCOUNTER 2023-11-04 12:43 | Outpatient (AMB) | payer OTHER, SELFPAY ==
[2023-11-04 12:45] VITALS: BMI 22.3
--- NOTE | 2023-11-04 12:45 | A.OFFVIS_ITS ---
VS Expanded 11/04/23 12:45 Height 5 ft 4 in Weight 129 lb 13.636 oz BMI 22.3 Intake Visit Reasons: t1dm Allergies metformin Adverse Reaction (Intermediate, Verified 10/23/23 11:23) Abdominal Pain Nutrition Presentation Details: Pt presents for MNT f/u for T2DM Pt reports working on reducing on desserts/baked goods Has not started the new DM meds yet - reports working on getting it enjoys cooking and trying diff recipes including fish 2 x/wk BS Monitoring Most Recent Diabetes Results: Microalb/Creat Ratio 16.2 ug/mg cr (<30) 08/06/23 Cholesterol 214 mg/dL (<200) H 08/06/23 HDL Cholesterol 45 mg/dL (>40) 08/06/23 Triglycerides 127 mg/dL (<150) 08/06/23 Creatinine 0.77 mg/dL (0.5-1.4) 08/06/23 Blood Urea Nitrogen 9 mg/dL (9-16) 08/06/23 Sodium 140 mmol/L (135-145) 08/06/23 Potassium 4.0 mmol/L (3.3-5.1) 08/06/23 Chloride 105 mmol/L (96-108) 08/06/23 Carbon Dioxide 29 mmol/L (22-29) 08/06/23 Calcium 9.4 mg/dL (8.4-10.2) 08/06/23 AST 10 U/L (5-31) 08/06/23 ALT 10 U/L (0-31) 08/06/23 Total Protein 6.6 g/dL (6.5-8.0) 08/06/23 Albumin 3.8 g/dL (3.5-5.0) 08/06/23 [facility] Medical History Smoker Pure hypercholesterolemia Diabetes mellitus Nephrolithiasis AVNRT (AV louisa re-entry tachycardia) Valvular heart disease Essential hypertension Hyperlipidemia LDL goal <70 Type 2 diabetes mellitus with diabetic polyneuropathy Surgical History Hx of hemorrhoidectomy Status post catheter ablation of slow pathway (~07/01/12) S/P HANNY-BSO (total abdominal hysterectomy and bilateral salpingo-oophorectomy) History of ectopic History of section Family History Father Prostate cancer Mother Natural Father FH: prostate cancer Mother Alive and well Social History Household Members: Children Household Members Other:: son Housing: House Alcohol intake: never Patient Tobacco Use Status: Current everyday Tobacco user Tobacco use type: Cigarette Cigarette Packs Per Day: 1 Cigarettes Per Day: 20 e-Cigarette/Vaping Use: Never Used Second Hand Smoke Exposure: Yes service: No Current occupational status: retired Cognitive needs: No Hearing needs: No Vision needs: Yes (Glasses) Assessment & Plan Assessment & Plan (1) Diabetes mellitus: Code(s): E11.9 - Type 2 diabetes mellitus without complications Category: Medical Qualifiers: Diabetes mellitus type: type 2 Diabetes mellitus shelter insulin use: without sourcing assistant use Diabetes mellitus complication status: with hyperglycemia Qualified Code(s): E11.65 - Type 2 diabetes mellitus with hyperglycemia Plan: Wt: 58 Kg ( 07/2023 ), 58 kg (09/2023) Est kcal needs as per MSJ: 1600 (40% carb, 30% protein/fat) Est fluid needs as per 25-30 ml/d: 1740 Est prot per day as per 1 g/kg bw: 58 Recommend fiber intake : 8-10 g per day and gradually increase to 25-28 g per day for women and 35-38 g for men or as tolerated Recommend sodium intake per day : less than 2000 mg Educated patient on: ( R = reviewed V = verbalizes understanding N/R = needs review N/A = not applicable * Food sources of carbohydrate, adequate serving sizes and its role in various health conditions: R * Differences between complex carbohydrates a simple carbohydrates, role of fiber in diet: R * Lean protein sources of foods: R * Differences between types of fats and role in diet (mono on saturated fat fatty acids, saturated fatty acids, trans fats): R V N/R * Food sources of sodium in salt and healthy modifications for heart health in kidney health: R V R/V * Vitamins and minerals: R V N/R * Healthy plate method concept: R * Physical activity: Benefits a precaution: R * Hypoglycemia protocol (rule of 15): R V N/R * Dietary prevention of Hyperglycemia: R * Acute /chronic complications of hyperglycemia : R Patient Instructions: Modify recipes choosing high fiber/lower carb food options - see recipes keep hydrated by having water with meals/snacks Coding Level of Care Code Nutr Indiv Subseq (99614) Diagnoses Type 2 diabetes mellitus with hyperglycemia, without long-term current use of insulin E11.65 Diabetes mellitus type: type 2 Diabetes mellitus shelter insulin use: without sourcing assistant use Diabetes mellitus complication status: with hyperglycemia Time Spent (min) 20
== END 2023-11-04 13:20 | disposition home or self-care (01) ==
PROVIDERS: PCP Internal Medicine; Visit Provider Dietitian, Registered
DX: E11.65 Type 2 diabetes mellitus with hyperglycemia (principal)

== ENCOUNTER → 2023-11-04 12:43 | Outpatient (BNVA) | payer OTHER, SELFPAY | PROVIDERS: PCP Internal Medicine; Visit Provider Dietitian, Registered | DX: E11.65 Type 2 diabetes mellitus with hyperglycemia (principal); E11.42 Type 2 diabetes mellitus with diabetic polyneuropathy; E78.5 Hyperlipidemia, unspecified; Z71.3 Dietary counseling and surveillance | CPT/HCPCS: 97803 ==

== ENCOUNTER 2023-11-18 13:42 | Outpatient (AMB) | payer OTHER, SELFPAY ==
[2023-11-18 13:43] VITALS: BP 140/82; PULSE 89; O2SAT 97; BMI 22.3
--- NOTE | 2023-11-18 13:43 | A.OFFPC_ITS ---
Vital Signs 11/18/23 13:43 Height 5 ft 4 in Weight 130 lb BMI 22.3 BP 140/82 H Blood Pressure Location Lt brachial Position Sitting Pulse 89 Pulse Source Pulse Oximeter Pulse Oximetry (%) 97 Oxygen Delivery Method Room Air Intake Visit Reasons: 11/25 RT eye and 12/12 LT Eye Intake Note: Patient is here for a Pre-op for Cataract scheduled with Dr. Tanner on 11/25 and 12/12 Stoneworking Belt Sander Required: Yes Stoneworking Belt Sander Language: Welsh Allergies metformin Adverse Reaction (Intermediate, Verified 11/18/23 13:48) Abdominal Pain Medication List - Last Reconciled 11/18/23 by Lubna Rosa PA-C atorvastatin 20 mg PO BEDTIME 90 days blood sugar diagnostic (FreeStyle Lite Strips) 1 strip miscellaneous BID blood sugar diagnostic As directed blood-glucose meter (FreeStyle [place] Lite kit) As directed blood-glucose meter (FreeStyle Lite Meter kit) As directed dulaglutide (Trulicity) 4.5 mg (0.5 mL) subcut QWEEK Farxiga (dapagliflozin propanediol) 10 mg PO QAM 90 days NS glipizide ER 5 mg PO DAILY lancets (FreeStyle Lancets) As directed twice a day lancets (FreeStyle Lancets) As directed pioglitazone (Actos) 30 mg PO DAILY 90 days Tobacco use date assessed: 07/26/23 Fall risk assessment: No Falls in past year Last assessed Fall Risk: 11/18/23 Dental Screening Dental Screen Date: 07/26/23 HPI 11/25 RT eye and 12/12 LT Eye HPI Details 68-year-old female with past medical his tory of hypertension, diabetes mellitus, hypercholesterolemia, hypertrophic obstructive cardiomyopathy last seen by Dr. King coming in for preoperative appointment. Patient is scheduled to have bilateral cataract surgery right eye 11/26/2023 and left eye 12/13/2023 with [facility] and LASIK. diabetes mellitus: Poorly controlled diabetic with last A1c 12.5%. Currently not taking any medications for DM. Hypertension: Well managed not on medical management. Patient tells us today she is no longer taking her diabetic medications as she was afraid of the side effects. [facility] Medical History Smoker Pure hypercholesterolemia Diabetes mellitus Nephrolithiasis AVNRT (AV louisa re-entry tachycardia) Valvular heart disease Essential hypertension Hyperlipidemia LDL goal <70 Type 2 diabetes mellitus with diabetic polyneuropathy Surgical History Hx of hemorrhoidectomy Status post catheter ablation of slow pathway (~07/01/12) S/P HANNY-BSO (total abdominal hysterectomy and bilateral salpingo-oophorectomy) History of ectopic History of section Family History Father Prostate cancer Mother Natural Father FH: prostate cancer Mother Alive and well Social History Household Members: Children Household Members Other:: son Housing: House Alcohol intake: never Patient Tobacco Use Status: Current everyday Tobacco user Tobacco use type: Cigarette Cigarette Packs Per Day: 1 Cigarettes Per Day: 20 e-Cigarette/Vaping Use: Never Used Second Hand Smoke Exposure: Yes service: No Current occupational status: retired Cognitive needs: No Hearing needs: No Vision needs: Yes (Glasses) Questionnaire Thrive Questionnaire Date Thrive assessed: 07/26/23 AUDIT C Alcohol Use Questionnaire (AUDIT-C) 1. How often do you have a drink containing alcohol?: Never 3. How often do you have six or more drinks on one occasion?: Never Total Score: 0 Score Reviewed/Action Taken: Yes BETTY-7 AMB Questionnaire BETTY-7 Date BETTY - 7 assessed: 07/26/23 Source: Developed by Drs. John Gregory, Gris Worthy, Elias Justice and colleagues, with an educational franco from [employer]. Review of Systems Const Denies body aches, Denies fatigue, Denies fever(s), Denies frequent falls, Denies headache(s) and Denies weakness Eyes Reports no additional complaints and Denies change in vision ENT Denies dizziness, Denies headache(s) and Denies nasal congestion Card Denies chest pain, Denies leg edema, Denies lightheadedness and Denies dyspnea Resp Denies cough and Denies dyspnea GI Denies constipation, Denies dyspepsia, Denies diarrhea, Denies nausea and Denies vomiting Denies urinary frequency, Denies dysuria, Denies urinary hesitancy and Denies urinary urgency Musc Denies back pain and Denies myalgias Skin/Breast Reports system reviewed and no additional complaints, except as documented Neuro Denies dizziness, Denies frequent falls, Denies headache(s) and Denies weakness Psych Reports no additional complaints Endo Denies fatigue Physical exam (Primary Care) Vital Signs: Last Vital Signs Pulse 89 11/18/23 13:43 BP 140/82 H 11/18/23 13:43 Pulse Ox 97 11/18/23 13:43 Oxygen Delivery Method Room Air 11/18/23 13:43 BMI result Body Mass Index 22.3 Tobacco/Smoking Status: Tobacco use Status Tobacco use date assessed 07/26/23 11/18/23 13:44 Patient Tobacco Use Status Current everyday Tobacco 11/18/23 13:44 Tobacco use type Cigarette 11/18/23 13:44 e-Cigarette/Vaping Use Never Used 11/18/23 13:44 Thrive Assessment: Date of Thrive Assessment Date Thrive assessed 07/26/23 11/18/23 13:44 Const General: cooperative, healthy appearing, comfortable and no acute distress Orientation/consciousness: patient oriented x3 HENMT Head: Yes normocephalic Ears: hearing grossly normal bilaterally General nose exam: Normal external nose present Eyes General: appearance normal, both eyes and all related structures Conjunctivae: conjunctivae normal Neck Neck: Yes full ROM and Yes no lymphadenopathy Resp Effort & Inspection: normal respiratory effort Auscultation: clear to auscultation bilaterally, no crackles, no rales, no rhonchi and no wheezes Cardio Rate: regular rate Rhythm: regular rhythm Skin General skin exam: no rashes or lesions noted Neuro General: patient oriented x3 Gait exam (Neuro): Normal gait present Extrem General: Yes normal to inspection, Yes full ROM and No edema Psych Affect: normal affect Attitude: cooperative Insight: Good insight present (Psych) Judgement: Good judgement present (Psych) Assessment and Plan Assessment & Plan (1) Pre-op evaluation: Code(s): Z01.818 - Encounter for other preprocedural examination Plan: Regarding preop clearance, the patient is at high risk for infection and poor wound healing for proposed surgery and due to?elevated A1c and lack of medications in the last month. Recommend against surgery until A1c can be further managed and patient was stabilized on medications. Reviewed with the patient that no surgery is completely free of risk and that this examination is to assist the surgeon in reviewing informed consent. Patient is not currently on any blood thinners, NSAIDs, or antiplatelet medications. If the surgeon does decide to go through with surgery discussed with patient she must discontinue Trulicity and Farxiga as well as pioglitazone 7 days prior to surgery. We will reschedule for additional preoperative appointment at the end of November to see if patient will be able to have left eye surgery however did inform patient unlikely the A1c would drop into normal range in 1 month time. (2) Uncontrolled diabetes mellitus with hyperglycemia: Code(s): E11.65 - Type 2 diabetes mellitus with hyperglycemia Qualifiers: Diabetes mellitus type: type 2 Qualified Code(s): E11.65 - Type 2 diabetes mellitus with hyperglycemia Plan: Discussed with patient the importance of taking her medications as prescribed and if she does have questions about side effects to follow up with our office or endocrinology. All concerns regarding medications were discussed at today's appointment. A1c remains elevated at 12.5%. Continue to follow with endocrinology. Decrease the amount of carbohydrates such as pasta, bread, rice, and potatoes an d limit the amount of sweets. Although fruits are generally healthy they should be eaten in moderation as they are still high in sugar. Hemoglobin A1c goal of less than 7% Plan This note was constructed using voice recognition software. While every effort has been made to ensure accuracy and solid waste engineer, still areas may have been included sometimes these areas may affect the content or meeting of the given symptoms. Total time spent caring for the patient today was 30 minutes. This includes time spent before the visit reviewing the chart, time spent during the visit, and time spent after the visit and documentation. Coding Level of Care Code Est Pt Level 3 (49454) Diagnoses Pre-op evaluation Z01.818 Uncontrolled type 2 diabetes mellitus with hyperglycemia E11.65 Diabetes mellitus type: type 2
== END 2023-11-18 14:23 | disposition home or self-care (01) ==
PROVIDERS: PCP Internal Medicine
DX: Z01.818 Encounter for other preprocedural examination (principal); E11.65 Type 2 diabetes mellitus with hyperglycemia
CPT/HCPCS: 99213

== ENCOUNTER 2023-11-27 12:34 | Outpatient (AMB) | payer OTHER, SELFPAY ==
--- NOTE | 2023-11-27 12:38 | A.OFFVIS_ITS ---
Vital Signs 11/27/23 12:41 Height 5 ft 4 in Weight 132 lb 4.438 oz BMI 22.7 BP 130/74 Blood Pressure Location Rt brachial Position Sitting Pulse 85 Pulse Source Pulse Oximeter Intake Visit Reasons: Med check/LVM Intake Note: Patient presents today for a follow-up for Type 2 Diabetes Mellitus: [place] video telephone triage nurse [phone] Last Diabetic Eye exam: Has been seeing the Showroom Consultant regularly due to an eye infection Last Podiatry Exam: Does not see a Organ Pipe Voicer Most recent HbA1c: >14.0%, 08/06/2023, 12.5% 10/23/2023 Random Glucose- 238mg/dL, Today Junior Marketing Associate Required: Yes Junior Marketing Associate Language: Tu[place]uan Information Interpreted: non-clinical & clinical Accompanied by: Self / Same As Patient Allergies metformin Adverse Reaction (Intermediate, Verified 11/18/23 13:48) Abdominal Pain HPI Comments Details: The patient is a 68-year-old female with a past medical history of type 2 diabetes presenting for diabetes. [place] video telephone triage nurse [phone] Medical history: htn, hyperlipidemia, HOCM Current prescribed medications: At last visit prescribed glipizide and Actos for patient. She read the side effects which including nausea, vomiting, dizziness and heart problems. Was taking Trulicity 4.5mg weekly stopped 2/2 weight loss, prescribed farxiga stopped taking or never took. A1C in 07/2023 >14%. Today POC A1C at visit 3 weeks ago 12.5%. Recently met with certified adaptive physical educator and has instituted some dietary changes. Not checking her glucose readings. It makes her anxious when they are high Micro/macrovascular complications: neuropathy Diet: Fish meat veg at meals. Snack on sugary foods at night ROS see HPI PHYSICAL EXAM: GENERAL: Alert and oriented x 3. NAD EYES: EOMI. Anicteric. HENT: Moist mucous membranes. No scleral icterus. No cervical lymphadenopathy. LUNGS: Clear to auscultation bilaterally. CARDIOVASCULAR: Regular rate and rhythm. + murmur. ABDOMEN: Soft, non-tender +bs EXTREMITIES: No edema. Non-tender. SKIN: No rashes or lesions. Warm. NEUROLOGIC: No focal neurological deficits. CN II-XII grossly intact PSYCHIATRIC: Cooperative. Appropriate mood and affect [facility] Medical History Smoker Pure hypercholesterolemia Diabetes mellitus Nephrolithiasis AVNRT (AV louisa re-entry tachycardia) Valvular heart disease Essential hypertension Hyperlipidemia LDL goal <70 Type 2 diabetes mellitus with diabetic polyneuropathy Surgical History Hx of hemorrhoidectomy Status post catheter ablation of slow pathway (~07/01/12) S/P HANNY-BSO (total abdominal hysterectomy and bilateral salpingo-oophorectomy) History of ectopic History of section Family History Father Prostate cancer Mother Natural Father FH: prostate cancer Mother Alive and well Social History Household Members: Children Household Members Other:: son Housing: House Alcohol intake: never Patient Tobacco Use Status: Current everyday Tobacco user Tobacco use type: Cigarette Cigarette Packs Per Day: 1 Cigarettes Per Day: 20 e-Cigarette/Vaping Use: Never Used Second Hand Smoke Exposure: Yes service: No Current occupational status: retired Cognitive needs: No Hearing needs: No Vision needs: Yes (Glasses) Physical Exam Vital Signs: Last Vital Signs Pulse 85 11/27/23 12:41 BP 130/74 11/27/23 12:41 BMI result Body Mass Index 22.7 Results Reviewed Results Reviewed: Laboratory Last Values Glucose (Clinic) 238 mg/dL (60-115) H 11/27/23 12:45 Assessment & Plan Assessment & Plan (1) Uncontrolled diabetes mellitus with hyperglycemia: Code(s): E11.65 - Type 2 diabetes mellitus with hyperglycemia Category: Medical Qualifiers: Diabetes mellitus type: type 2 Qualified Code(s): E11.65 - Type 2 diabetes mellitus with hyperglycemia Plan: Discussed with patient side effect profiles of medications. Discussed any medication she experiences untoward side effects from can be stopped but we need to get her glucose down. Discussed that she could take insulin which is what her body is not producing enough of, but she declines at this time. She is willing to restart trulicity at a lower dose and start Actos. She will return in 3 weeks to check blood glucose Medications: New dulaglutide (Trulicity) 1.5 mg (0.5 mL) subcut QWEEK 2 mL 3RF Discontinued Farxiga (dapagliflozin propanediol) Discontinued Reason: Doctor's Order 10 mg PO QAM 90 days 90 tabs 1RF NS dulaglutide (Trulicity) Discontinued Reason: Doctor's Order 4.5 mg (0.5 mL) subcut QWEEK 2 mL 6RF Coding Level of Care Code Est Pt Level 4 (00651) Diagnoses Uncontrolled type 2 diabetes mellitus with hyperglycemia E11.65 Diabetes mellitus type: type 2
[2023-11-27 12:41] VITALS: BP 130/74; PULSE 85; BMI 22.7
[2023-11-27 12:50] LABS: Glucose, Whole Blood 238 mg/dL (60-115)
== END 2023-11-27 13:21 | disposition home or self-care (01) ==
PROVIDERS: PCP Internal Medicine; Visit Provider Internal Medicine
DX: E11.65 Type 2 diabetes mellitus with hyperglycemia (principal)

== ENCOUNTER → 2023-11-27 12:34 | Outpatient (BNVA) | payer OTHER, SELFPAY | PROVIDERS: PCP Internal Medicine; Visit Provider Internal Medicine | DX: E11.65 Type 2 diabetes mellitus with hyperglycemia (principal); E11.42 Type 2 diabetes mellitus with diabetic polyneuropathy; E78.00 Pure hypercholesterolemia, unspecified; E55.9 Vitamin D deficiency, unspecified; F17.210 Nicotine dependence, cigarettes, uncomplicated; Z71.6 Tobacco abuse counseling | CPT/HCPCS: 82947; 99212 ==

== ENCOUNTER 2023-11-27 13:48 | Outpatient (AMB) | payer OTHER, SELFPAY ==
[2023-11-27 13:56] VITALS: BP 138/86; PULSE 83; O2SAT 96; BMI 22.7
--- NOTE | 2023-11-27 13:56 | A.OFFPC_ITS ---
Vital Signs 11/27/23 13:56 Height 5 ft 4 in Weight 132 lb 4 oz BMI 22.7 BP 138/86 Blood Pressure Location Lt brachial Position Sitting Pulse 83 Pulse Source Pulse Oximeter Pulse Oximetry (%) 96 Oxygen Delivery Method Room Air Intake Visit Reasons: uncontrolled DM Technician Support Association Required: No Accompanied by: Self / Same As Patient Allergies metformin Adverse Reaction (Intermediate, Verified 11/27/23 14:53) Abdominal Pain Medication List - Last Reconciled 11/27/23 by Pascual King MD atorvastatin 20 mg PO BEDTIME 90 days blood sugar diagnostic (FreeStyle Lite Strips) 1 strip miscellaneous BID blood sugar diagnostic As directed blood-glucose meter (FreeStyle [place] Lite kit) As directed blood-glucose meter (FreeStyle Lite Meter kit) As directed dulaglutide (Trulicity) 1.5 mg (0.5 mL) subcut QWEEK glipizide ER 5 mg PO DAILY lancets (FreeStyle Lancets) As directed twice a day lancets (FreeStyle Lancets) As directed pioglitazone (Actos) 30 mg PO DAILY 90 days Tobacco use date assessed: 11/27/23 Fall risk assessment: No Falls in past year Last assessed Fall Risk: 11/27/23 Dental Screening Dental Screen Date: 11/27/23 Did you have a dental visit in the last 12 months?: Yes Did you have a dental problem in the last 6 months where you did not have access to dental care?: No Was dental information given to patient?: Patient has dentist HPI uncontrolled DM HPI Details Patient comes in today for her follow up visit States that she feels okay She was apparently just seen by endocrinology earlier today and per their report, which I have corroborated with patient, she admits to not taking her meds as prescribed due to concerns about the medications' potential side effects She states that she has just been taking her Glipizide and Pioglitazone but has not taken her Trulicity in a while now nor her Farxiga when it was prescribed for her a few months ago She also has a history of poor compliance with her diet, which is making it more difficult to get her diabetes to goal According to endocrinology, she now agrees to at least go back on a lower dose of Trulicity and will start taking again her Pioglitazone regularly and she will be seen again by endocrinology in about 3 weeks to reassess her response to Tx She also reports having being scheduled to fly back to [place] sometime around 01/28/2024 and plans to stay there for a couple of months to help out one of her sisters who is currently battling cancer She denies any headaches or dizziness Denies any chest pains, no SOB No nausea/vomiting, no abdominal pain No change in bowel habits noted She did not get any of her follow up labs done prior to her appointment today [facility] Medical History (Updated 11/27/23 @ 15:22 by Pascual King MD) Vitamin D deficiency Smoker Pure hypercholesterolemia Diabetes mellitus Nephrolithiasis AVNRT (AV louisa re-entry tachycardia) Valvular heart disease Essential hypertension Hyperlipidemia LDL goal <70 Type 2 diabetes mellitus with diabetic polyneuropathy Surgical History Hx of hemorrhoidectomy Status post catheter ablation of slow pathway (~07/01/12) S/P HANNY-BSO (total abdominal hysterectomy and bilateral salpingo-oophorectomy) History of ectopic History of section Family History Father Prostate cancer Mother Natural Father FH: prostate cancer Mother Alive and well Social History Household Members: Children Household Members Other:: son Housing: House Alcohol intake: never Patient Tobacco Use Status: Current everyday Tobacco user Tobacco use type: Cigarette Cigarette Packs Per Day: 1 Cigarettes Per Day: 20 e-Cigarette/Vaping Use: Never Used Second Hand Smoke Exposure: Yes service: No Current occupational status: retired Cognitive needs: No Hearing needs: No Vision needs: Yes (Glasses) Questionnaire PHQ-9 Over the last 2 weeks, how often have you been bothered by any of the following problems? 1. Little interest or pleasure in doing things: not at all 2. Feeling down, depressed, or hopeless: several days 3. Trouble falling or staying asleep, or sleeping too much: several days 4. Feeling tired or having little energy: several days 5. Poor appetite or overeating: more than half the days 6. Feeling bad about yourself - or that you are a failure or have let yourself or your family down: not at all 7. Trouble concentrating on things, such as reading the newspaper or watching television: not at all 8. Moving or speaking so slowly that other people could have noticed. Or the opposite - being so fidgety or restless that you have been moving around a lot more than usual: not at all 9. Thoughts that you would be better off or of hurting yourself in some way: not at all Total score: 5 Depression Screening Interpretation: Positive Depression Screening Follow-up: Existing condition and Follow-up Visit Requested Depression Screening Done: Yes 41611 - PHQ-9 Billing: Yes Source: Developed by Drs. John Gregory, Gris Worthy, Elias Justice and colleagues, with an educational franco from [employer]. Thrive Questionnaire Date Thrive assessed: 11/27/23 I am a: Patient What is your living situation today?: I have a steady place to live Within the past 12 months, did the food you bought not last and you didn't have the money to get more?: Never true Within the past 12 months, did you worry whether your food would run out before you got money to buy more?: Never true Do you have trouble paying for medicines?: No Do you have trouble getting transportation to medical appointments?: No Do you have trouble paying your heating and electricity bill?: No Do you have trouble taking care of your child, family member or friend?: No Do you have trouble with day-to-day activities such as bathing, preparing meals, shopping, managing finances, etc.?: No Are you currently unemployed and looking for a job?: No Are you interested in more education?: No Please select the resources that you would like help with: None Currently or been in a relationship where the following occur: No concerns reported THRIVE Score: 0 AUDIT C Alcohol Use Questionnaire (AUDIT-C) 1. How often do you have a drink containing alcohol?: Never 3. How often do you have six or more drinks on one occasion?: Never Total Score: 0 Score Reviewed/Action Taken: Yes BETTY-7 AMB Questionnaire BETTY-7 Date BETTY - 7 assessed: 11/27/23 Feeling nervous, anxious, or on edge: 0 = Not at all Not being able to stop or control worryin = Not at all Worrying too much about different things: 0 = Not at all Trouble relaxin = Not at all Being so restless that it is hard to sit still: 0 = Not at all Becoming easily annoyed or irritable: 0 = Not at all Feeling afraid as if something awful might happen: 0 = Not at all Total BETTY-7 score (0-4 normal; 5-9 mild; 10-14 moderate; 15-21 severe): 0 Source: Developed by Drs. John Gregory, Gris Worthy, Elias Justice and colleagues, with an educational franco from [employer]. Review of Systems Const Denies chills, Denies fatigue, Denies fever(s) and Denies headache(s) ENT Denies dysphagia, Denies dizziness, Denies otalgia, Denies headache(s), Denies neck pain, Denies odynophagia and Denies sore throat Card Denies chest pain, Denies palpitations and Denies dyspnea Resp Denies cough and Denies dyspnea GI Denies abdominal pain, Denies constipation, Denies dysphagia, Denies heartburn, Denies diarrhea, Denies nausea, Denies odynophagia and Denies vomiting Denies difficulty voiding, Reports nocturia and Denies dysuria Musc Denies back pain and Denies neck pain Skin/Breast Denies rash Neuro Denies dizziness and Denies headache(s) Endo Denies fatigue and Denies palpitations Physical exam (Primary Care) Vital Signs: Last Vital Signs Pulse 83 11/27/23 13:56 BP 138/86 11/27/23 13:56 Pulse Ox 96 11/27/23 13:56 Oxygen Delivery Method Room Air 11/27/23 13:56 BMI result Body Mass Index 22.7 Tobacco/Smoking Status: Tobacco use Status Tobacco use date assessed 11/27/23 11/27/23 13:57 Patient Tobacco Use Status Current everyday Tobacco 11/27/23 13:57 Tobacco use type Cigarette 11/27/23 13:57 e-Cigarette/Vaping Use Never Used 11/27/23 13:57 PHQ-9: PHQ-9 Score PHQ-9: Total score 5 11/27/23 14:14 Depression Screening Interpretation: Positive Depression Screening Follow-up: Existing condition and Follow-up Visit Requested Thrive Assessment: Date of Thrive Assessment Date Thrive assessed 11/27/23 11/27/23 13:57 Currently or been in a relationship where the following occur: No concerns reported Const General: no acute distress and alert HENMT Ears: TM's normal bilaterally and EAC's normal Throat: Yes posterior oropharynx normal and Yes tonsils normal Neck Neck: Yes no lymphadenopathy and Yes supple Thyroid: Thyroid normal Resp Auscultation: clear to auscultation bilaterally, no rales and no wheezes Cardio Rate: regular rate Rhythm: regular rhythm Heart sounds: no murmurs GI Palpation (GI): Soft to palpation and nontender Auscultation: normal bowel sounds Skin Rashes: no rashes Extrem General: Yes no clubbing, cyanosis or edema Assessment and Plan Assessment & Plan (1) Uncontrolled diabetes mellitus with hyperglycemia: Code(s): E11.65 - Type 2 diabetes mellitus with hyperglycemia Qualifiers: Diabetes mellitus type: type 2 Qualified Code(s): E11.65 - Type 2 diabetes mellitus with hyperglycemia Plan: Her HgbA1c was still at around 12.5% last month on 10/23/2023; she was consistently >14% earlier this year and sometime late last year - goal is again <7.0% Reinforced diabetic diet Patient admits to NOT taking her meds as prescribed - states that she has just been taking her Glipizide and Pioglitazone but has not taken her Trulicity in a while nor her Farxiga when it was prescribed for her by endocrinology a few months ago Have advised patient that her concerns about the potential side effects of her medications are certainly valid BUT have pointed out to her that she has not considered what the long-term effects of uncontrolled diabetes can do to her Have advised her that she should actually be more afraid of the long-term consequences of uncontrolled diabetes, including a significantly increased risk of stroke or heart attack compared to the normal population There are also the long-term effects of uncontrolled diabetes itself, including blindness, renal failure and consequent hemodialysis, as well as neuropathy Have also warned her again, as I have in the past, that the longer her diabetes is uncontrolled, the more likely she will end up on insulin injections at some point in the future, which she is trying to avoid as she is afraid of needles/shots Patient now agrees to try to work harder to help get her diabetes under control and resolves to start taking her meds as prescribed and take her diabetes more seriously She is reminded that she is to start taking Trulicity 1.5 mg SQ once a week, Pioglitazone 30 mg QD and Glipizide ER 5 mg QD Have also reminded her to follow up with endocrinology as scheduled in a few weeks (2) Pure hypercholesterolemia: Code(s): E78.00 - Pure hypercholesterolemia, unspecified Plan: Reinforced low cholesterol diet She has not had any follow up labs done recently - labs done last year were non- fasting labs and did not include her cholesterol levels Continue Atorvastatin 20 mg QD Will recheck her labs and fasting lipids in a couple of months for follow up - have reminded her to get these done BEFORE she comes back to see me in January 2024 (her previous lab orders are updated and she can just use these for her next lab draw in early January 2024) (3) Vitamin D deficiency: Code(s): E55.9 - Vitamin D deficiency, unspecified Plan: She is advised that her Vitamin D level was low on her labs done back in July 2023 Will start her on Vitamin D3 2000 units QD (4) Smoker: Code(s): F17.200 - Nicotine dependence, unspecified, uncomplicated Plan: Counseled again on smoking cessation Plan Follow up in 2 months (early January 2024 as patient has plans to fly out to [place] sometime around 01/28/2024 Orders: Orders Vitamin D 25-OH Total 01/10/24 E55.9 - Vitamin D deficiency, unspecified Coding Level of Care Code Est Pt Level 3 (72275) Diagnoses Uncontrolled type 2 diabetes mellitus with hyperglycemia E11.65 Diabetes mellitus type: type 2 Pure hypercholesterolemia E78.00 Vitamin D deficiency E55.9 Smoker F17.200
== END 2023-11-27 14:59 | disposition home or self-care (01) ==
PROVIDERS: PCP Internal Medicine; Visit Provider Internal Medicine
DX: E11.65 Type 2 diabetes mellitus with hyperglycemia (principal); E78.00 Pure hypercholesterolemia, unspecified; E55.9 Vitamin D deficiency, unspecified; F17.200 Nicotine dependence, unspecified, uncomplicated

== ENCOUNTER 2023-12-01 02:47 | Emergency (ER) | payer OTHER, SELFPAY ==
--- NOTE | ~2023-12-01 | CT_ITS ---
EXAMINATION: CT HEAD WITHOUT CONTRAST CT CERVICAL SPINE WITHOUT CONTRAST CLINICAL INFORMATION: Fall with head strike. COMPARISON: None available. TECHNIQUE: Contiguous axial imaging was performed through the head and cervical spine without intravenous administration of contrast. Sagittal and coronal reformatted images also obtained. This CT examination was performed using dose optimization techniques as appropriate, variously including the following: *Automated exposure control *Adjustment of mA and/or kV according to patient size (this includes techniques or standardized protocols for targeted exams where dose is matched to indication/reason for exam; i.e. extremities or head) *Use of iterative reconstruction technique DLP: 950 mGy-cm FINDINGS: The lateral, third and fourth ventricles are normally outlined. The cortical sulci and basal cisterns are normally as well. There is no acute territorial defect, hemorrhage or midline shift. The extra-axial spaces are unremarkable. Calvarium/scalp: Intact. Maxillofacial sinuses and mastoids: Clear as visualized. There is a left orbital/periorbital soft tissue defect with soft tissue swelling. Cervical spine: There is mild reversal of the expected cervical spine curvature. There is mild to moderate C3-4 to C6-7 disc degenerative change with loss of disc space, endplate change and posterior osteophytes associated with mild diffuse facet osteoarthritic hypertrophic change with multilevel mild spinal canal and multilevel mild neuroforaminal narrowing. The bony structures are osteopenic. No fracture is seen. The soft tissues are unremarkable. There is biapical pleural thickening. CT/CT cervical spine wo IV con IMPRESSION: 1. No acute intracranial process seen. 2. Reversal of expected cervical spine curvature with degenerative disc changes C3-4 to C6-7 disc levels with mild spinal canal and multilevel mild neuroforaminal narrowing. 3. Left orbital/periorbital soft tissue injury. Electronically signed by: Prasanna Suh MD 12/01/2023 04:01 AM EDT
--- NOTE | ~2023-12-01 | CT_ITS ---
EXAMINATION: CT HEAD WITHOUT CONTRAST CT CERVICAL SPINE WITHOUT CONTRAST CLINICAL INFORMATION: Fall with head strike. COMPARISON: None available. TECHNIQUE: Contiguous axial imaging was performed through the head and cervical spine without intravenous administration of contrast. Sagittal and coronal reformatted images also obtained. This CT examination was performed using dose optimization techniques as appropriate, variously including the following: *Automated exposure control *Adjustment of mA and/or kV according to patient size (this includes techniques or standardized protocols for targeted exams where dose is matched to indication/reason for exam; i.e. extremities or head) *Use of iterative reconstruction technique DLP: 950 mGy-cm FINDINGS: The lateral, third and fourth ventricles are normally outlined. The cortical sulci and basal cisterns are normally as well. There is no acute territorial defect, hemorrhage or midline shift. The extra-axial spaces are unremarkable. Calvarium/scalp: Intact. Maxillofacial sinuses and mastoids: Clear as visualized. There is a left orbital/periorbital soft tissue defect with soft tissue swelling. Cervical spine: There is mild reversal of the expected cervical spine curvature. There is mild to moderate C3-4 to C6-7 disc degenerative change with loss of disc space, endplate change and posterior osteophytes associated with mild diffuse facet osteoarthritic hypertrophic change with multilevel mild spinal canal and multilevel mild neuroforaminal narrowing. The bony structures are osteopenic. No fracture is seen. The soft tissues are unremarkable. There is biapical pleural thickening. CT/CT head/brain wo IV con IMPRESSION: 1. No acute intracranial process seen. 2. Reversal of expected cervical spine curvature with degenerative disc changes C3-4 to C6-7 disc levels with mild spinal canal and multilevel mild neuroforaminal narrowing. 3. Left orbital/periorbital soft tissue injury. Electronically signed by: Prasanna Suh MD 12/01/2023 04:01 AM EDT
[2023-12-01 02:49] VITALS: BP 169/88; PULSE 102; RESP 16; TEMP 37.2; O2SAT 98; BMI 22.3
[2023-12-01 03:11] LABS: MANUAL DIFF FLAG NO
[2023-12-01 03:12] LABS: Basophils Percent Auto 0.4 % (0-2); Eosinophils Absolute Auto 0.1 X10*3/uL (0.0-0.4); Hematocrit 41.7 % (37.0-47.0); Hemoglobin 14.1 g/dl (12.0-16.0); Imm Gran Abs Auto 0.03 X10*3/uL (0.00-0.03); Imm Gran Pct Auto 0.3 % (0.0-0.4); Lymphocytes Percent Auto 31.9 % (20-40); Mean Corpuscular HGB Conc 33.8 g/dl (31.0-35.0); Mean Corpuscular Hemoglobin 29.2 pg (27.0-33.0); Mean Corpuscular Volume 86.3 fL (80.0-98.0); Mean Platelet Volume 10.3 fL (9.4-12.3); Monocytes Absolute Auto 0.6 X10*3/uL (0.1-1.2); Monocytes Percent Auto 6.1 % (2-11); Neutrophils Absolute Auto 5.6 x10*3/uL (2.0-8.3); Neutrophils Percent Auto 60.3 % (45-73); Platelet Count 218 X10*3/uL (160-400); Red Blood Count 4.83 X10*6/uL (4.20-5.50); Red Cell Distribution Width 12.5 % (11.0-16.0); White Blood Count 9.2 X10*3/uL (4.8-10.8)
[2023-12-01 03:27] LABS: Alanine Aminotransferase 10 U/L (0-31); Albumin Level 4.2 g/dL (3.5-5.0); Alkaline Phosphatase 102 U/L (39-117); Anion Gap 13 (12-20); Aspartate Amino Transferase 11 U/L (5-31); Bilirubin Total 0.5 mg/dL (0.0-1.0); Blood Urea Nitrogen 14 mg/dL (9-16); Calcium 10.2 mg/dL (8.4-10.2); Carbon Dioxide 29 mmol/L (22-29); Chloride 103 mmol/L (96-108); Creatinine Clr Calc Pharmacy 52.5; Estimated Glomerular Filt Rate > 60; Glucose Random 247 mg/dL (60-115); Potassium 3.9 mmol/L (3.3-5.1); Sodium 141 mmol/L (135-145)
[2023-12-01 06:23] VITALS: BP 145/86; PULSE 84; RESP 17; TEMP 36.8; O2SAT 95
--- NOTE | 2023-12-01 06:23 | ED_ITS ---
HPI - Fall General Chief Complaint: Fall Stated Complaint: head strike Time Seen by Provider: 12/01/23 05:40 Source: patient and family Mode of arrival: ambulatory Limitations: no limitations History of Present Illness ED Provider: Dr. Mendoza HPI Narrative: Patient fell asleep in her chair and fell forward. she was wearing her eyeglasses and hit her face cutting her left eyelid. No LOC she was awake immediately. Onset (ago): minute(s) Related Data Home Medications ?Medication ?Instructions ?Recorded ?Confirmed blood sugar diagnostic #10 ea 03/30/20 11/27/23 lancets 28 gauge (FreeStyle #100 ea 03/30/20 11/27/23 Lancets) Previous Rx's ?Medication ?Instructions ?Recorded blood-glucose meter (FreeStyle #1 ea 02/13/21 [place] Lite kit) atorvastatin 20 mg tablet 20 mg PO BEDTIME 90 days #90 tabs 04/22/23 blood sugar diagnostic (FreeStyle 1 strip miscellaneous BID #100 08/07/23 Lite Strips) strips blood-glucose meter (FreeStyle #1 ea 08/07/23 Lite Meter kit) lancets 28 gauge (FreeStyle #100 ea 08/07/23 Lancets) glipizide 5 mg tablet, extended 5 mg PO DAILY #90 tabs 10/23/23 release 24 hr pioglitazone 30 mg tablet (Actos) 30 mg PO DAILY 90 days #90 tabs 10/23/23 dulaglutide 1.5 mg/0.5 mL 1.5 mg (0.5 mL) subcut QWEEK #2 mL 11/27/23 subcutaneous pen injector (Trulicity) Allergies Allergy/AdvReac Type Severity Reaction Status Date / Time metformin AdvReac Intermediate Abdominal Verified 12/01/23 02:50 Pain Review of Systems 2 Review of Systems: Yes all other systems are reviewed and are negative Neurologic: Denies Sensory deficit (Neuro) [facility] Past Medical History Medical History Vitamin D deficiency Smoker Pure hypercholesterolemia Diabetes mellitus Nephrolithiasis AVNRT (AV louisa re-entry tachycardia) Valvular heart disease Essential hypertension Hyperlipidemia LDL goal <70 Type 2 diabetes mellitus with diabetic polyneuropathy Surgical History Hx of hemorrhoidectomy Status post catheter ablation of slow pathway (~07/01/12) S/P HANNY-BSO (total abdominal hysterectomy and bilateral salpingo-oophorectomy) History of ectopic History of section Family History Family History Father Prostate cancer Mother Natural Father FH: prostate cancer Mother Alive and well Social History Social History Household Members: Children Household Members Other:: son Housing: House Alcohol intake: never Patient Tobacco Use Status: Current everyday Tobacco user Tobacco use type: Cigarette Cigarette Packs Per Day: 1 Cigarettes Per Day: 20 e-Cigarette/Vaping Use: Never Used Second Hand Smoke Exposure: Yes service: No Current occupational status: retired Cognitive needs: No Hearing needs: No Vision needs: Yes (Glasses) Physical Exam 2 Vital Signs: Vital Signs: Last Vital Signs Temp 98.3 F 12/01/23 07:44 Pulse 84 12/01/23 07:44 Resp 17 12/01/23 07:44 BP 145/86 H 12/01/23 07:44 Pulse Ox 95 12/01/23 07:44 O2 Del Method Room Air 12/01/23 07:44 BMI result Body Mass Index 22.3 Const: Other: blood all over face from left eyebrow laceration Nutritional Appearance: average body habitus Orientation/consciousness: oriented to person and patient oriented x3 Limitations: no limitations HEENT: Other: 6cm eyebrow laceration with ecchymosis Head: Yes normal to inspection Ears: external ears normal General nose exam: Normal external nose present Mouth: Normal oral and palatal mucosa present and oropharynx normal Throat: Yes posterior oropharynx normal Eyes: General: appearance normal, both eyes and all related structures Neck: Other: supple Neck: Yes normal visual inspection Chest: Chest palpation & inspection: normal inspection of the chest Resp: Auscultation: clear to auscultation bilaterally Cardio: Jugular venous distension: no JVD Rate: regular rate Rhythm: r egular rhythm Heart sounds: S1 normal heart sound present and S2 normal heart sound present GI: Inspection: Yes normal to inspection Palpation (GI): Soft to palpation, nontender and No hepatosplenomegaly present Auscultation: normal bowel sounds : General: Yes no CVA tenderness Back/Spine/Pelvis: Back: no CVA tenderness Skin: Other: see HEENT exam Neuro: General: oriented to person and patient oriented x3 Cranial nerves: Yes CN's II-XII intact bilaterally Motor exam (neuro): 5/5 motor strength present throughout Sensory Exam: No Sensory deficit (Neuro) Extrem: General: Yes normal to inspection Psych: Appearance: grossly normal Course Reevaluation(s) Reevaluation #1: Patient prepped and draped in sterile fashion, 1% lidocaine used for anesthesia, wound irrigated under pressure with saline, closed with 6-0 nylon x 10. Patient tolerated procedure well. Time: 07:14 Reevaluation #2: CT brain negative, CT cspine negative will dc home Time: 07:15 Medications Administered Discontinued Medications Generic Name Dose Route Start Last Admin Trade Name Freq PRN Reason Stop Dose Admin Diphtheria/Tetanus/Acell Pertussis 0.5 ml 12/01/23 07:23 12/01/23 07:39 Diphth,Pertus(Acell),Tet Adult 0.5 Ml Syringe IM 12/01/23 07:24 0.5 ml .ONCE ONE Administration Lidocaine HCl 5 ml 12/01/23 05:47 12/01/23 06:26 Lidocaine Hcl 1 % 20 Ml Vial INFILTRATI 12/01/23 05:48 Not Given ONCE ONE Medical Decision Making Differential Diagnosis Differential Diagnoses: The differential diagnosis associated with the presentation includes (subdural hematoma, cerebral bleed, head trauma, eyebrow laceration) Admission/Observation Consideration of admission/observation: Escalation of care including admission/observation considered (upon arrival patient considered for admission) Lab Data 12/01/23 03:07 12/01/23 03:07 Labs: Lab Results 12/01/23 Range/Units 03:07 WBC 9.2 (4.8-10.8) X10*3/uL RBC 4.83 (4.20-5.50) X10*6/uL Hgb 14.1 (12.0-16.0) g/dl Hct 41.7 (37.0-47.0) % MCV 86.3 (80.0-98.0) fL MCH 29.2 (27.0-33.0) pg MCHC 33.8 (31.0-35.0) g/dl RDW 12.5 (11.0-16.0) % Plt Count 218 (160-400) X10*3/uL MPV 10.3 (9.4-12.3) fL Immature Gran % (Auto) 0.3 (0.0-0.4) % Neut % (Auto) 60.3 (45-73) % Lymph % (Auto) 31.9 (20-40) % [place] % (Auto) 6.1 (2-11) % Eos % (Auto) 1.0 (0-4) % Baso % (Auto) 0.4 (0-2) % Lymph # (Auto) 3.0 (1.2-4.9) X10*3/uL [place] # (Auto) 0.6 (0.1-1.2) X10*3/uL Eos # (Auto) 0.1 (0.0-0.4) X10*3/uL Baso # (Auto) 0.0 (0.0-0.2) X10*3/uL Abs Immat Gran (auto) 0.03 (0.00-0.03) X10*3/uL Absolute Neuts (auto) 5.6 (2.0-8.3) x10*3/uL Absolute Nucleated RBC 0.000 (0.0-0.012) X10*3/uL Nucleated RBC % (auto) 0.0 (0.0-0.2) /100WBC Sodium 141 (135-145) mmol/L Potassium 3.9 (3.3-5.1) mmol/L Chloride 103 (96-108) mmol/L Carbon Dioxide 29 (22-29) mmol/L Anion Gap 13 (12-20) BUN 14 (9-16) mg/dL Creatinine 0.86 (0.5-1.4) mg/dL Estim Creat Clear Calc 52.5 Estimated GFR > 60 Random Glucose 247 H (60-115) mg/dL Calcium 10.2 D (8.4-10.2) mg/dL Total Bilirubin 0.5 (0.0-1.0) mg/dL AST 11 (5-31) U/L ALT 10 (0-31) U/L Alkaline Phosphatase 102 (39-117) U/L Total Protein 7.0 (6.5-8.0) g/dL Albumin 4.2 (3.5-5.0) g/dL Independent Interpretation I performed an independent interpretation of an: CT Scan (brain: no bleed or mass effect, cspine: no fracture) Independent Historian Clinical information obtained from an independent historian. History obtained from or confirmed by: Other (son) Prescription Management I considered prescription management with: Antibiotic (antibiotic not indicated) Discharge Plan Discharge Clinical Impression: Acute head trauma, Complex laceration of eyebrow Patient Disposition: Home, Self-Care Instructions: Care For Your Stitches (ED), Laceration (ED), Head Injury (ED) Additional Instructions: suture removal, 7 days Prescriptions: No Action atorvastatin 20 mg tablet 20 mg PO BEDTIME 90 Days Qty: 90 0RF FreeStyle Lite Strips Strip 1 strip miscellaneous BID Qty: 100 6RF (DME) lancets [FreeStyle Lancets] 28 gauge misc See Rx Instructions .ROUTE .MEDSUPPLY Qty: 100 12RF Rx Instructions: As directed twice a day (DME) blood-glucose meter [FreeStyle Lite Meter] Kit See Rx Instructions .ROUTE .MEDSUPPLY Qty: 1 0RF Rx Instructions: As directed (DME) blood-glucose meter [FreeStyle [place] Lite] Kit See Rx Instructions .Route Qty: 1 0RF Rx Instructions: As directed (DME) FreeStyle Lite Strips Strip See Rx Instructions Not Applicable TID Qty: 10 Rx Instructions: As directed (DME) lancets [FreeStyle Lancets] 28 gauge misc See Rx Instructions .ROUTE .MEDSUPPLY Qty: 100 Rx Instructions: As directed pioglitazone [Actos] 30 mg tablet 30 mg PO DAILY 90 Days Qty: 90 1RF glipizide 5 mg tablet extended release 24hr 5 mg PO DAILY Qty: 90 1RF Trulicity 1.5 mg/0.5 mL pen injector 1.5 mg subcut QWEEK Qty: 2 3RF Referrals: Pascual King MD [Primary Care Provider] - 1 week Interventions: ED Discharge Assessment Last Done: 12/01/23 07:44 Discharge Date/Time: 12/01/23 07:44 Print Language: Romanian
--- NOTE | 2023-12-01 06:55 | PC.NURSE ---
report given to Cat CARLTON
[2023-12-01] MEDS: Diphth,Pertus(ACell),Tet Adult 0.5 ML SYRINGE IM (07:39)
[2023-12-01 07:44] VITALS: BP 145/86; PULSE 84; RESP 17; TEMP 36.8; O2SAT 95
== END 2023-12-01 07:44 | disposition home or self-care (01) ==
PROVIDERS: Emergency Provider Emergency Medicine; PCP Internal Medicine
DX: S01.112A Laceration without foreign body of left eyelid and periocular area, initial encounter (principal); R51.9 Headache, unspecified; M54.2 Cervicalgia; F17.210 Nicotine dependence, cigarettes, uncomplicated; E11.9 Type 2 diabetes mellitus without complications; W45.8XXA Other foreign body or object entering through skin, initial encounter; Y93.89 Activity, other specified; Y99.8 Other external cause status; Y92.89 Other specified places as the place of occurrence of the external cause; Z79.85 Long-term (current) use of injectable non-insulin antidiabetic drugs; Z23 Encounter for immunization; Z79.899 Other long term (current) drug therapy
CPT/HCPCS: 12014; 36415; 70450; 72125; 80053; 85025; 90471; 90715; 99284

== ENCOUNTER 2023-12-10 13:06 | Outpatient (AMB) | payer OTHER, SELFPAY ==
--- NOTE | 2023-12-10 13:14 | A.OFFPC_ITS ---
Vital Signs 3 12/10/23 13:15 Height 5 ft 4 in Weight 128 lb BMI 22.0 BP 126/70 Blood Pressure Location Lt brachial Position Sitting Pulse 94 Pulse Source Pulse Oximeter Pulse Oximetry (%) 99 Oxygen Delivery Method Room Air Intake Visit Reasons: [facility] [place] 11/30 head strike- see comm Back Grinder Required: No Accompanied by: Self / Same As Patient Allergies metformin Adverse Reaction (Intermediate, Verified 12/10/23 13:23) Abdominal Pain Medication List - Last Reconciled 12/10/23 by Mathew Lao PA-C atorvastatin 20 mg PO BEDTIME 90 days blood sugar diagnostic (FreeStyle Lite Strips) 1 strip miscellaneous BID blood sugar diagnostic As directed blood-glucose meter (FreeStyle [place] Lite kit) As directed blood-glucose meter (FreeStyle Lite Meter kit) As directed dulaglutide (Trulicity) 1.5 mg (0.5 mL) subcut QWEEK glipizide ER 5 mg PO DAILY lancets (FreeStyle Lancets) As directed twice a day lancets (FreeStyle Lancets) As directed pioglitazone (Actos) 30 mg PO DAILY 90 days Tobacco use date assessed: 11/27/23 Fall risk assessment: 1 Fall in past year Last assessed Fall Risk: 12/10/23 Dental Screening Dental Screen Date: 11/27/23 HPI [facility] [place] 11/30 head strike- see comm 2 HPI0 Details Patient is a 68-year-old female here today for an ER follow-up visit. Patient fell striking her head creating laceration over her left brow. She reports she fell asleep while sitting in her chair and leaned forward striking her left Brow creating laceration. She now needs stitches removed Also needs he handicap placard paperwork filled out. [facility] Medical History Vitamin D deficiency Smoker Pure hypercholesterolemia Diabetes mellitus Nephrolithiasis AVNRT (AV louisa re-entry tachycardia) Valvular heart disease Essential hypertension Hyperlipidemia LDL goal <70 Type 2 diabetes mellitus with diabetic polyneuropathy Surgical History Hx of hemorrhoidectomy Status post catheter ablation of slow pathway (~07/01/12) S/P HANNY-BSO (total abdominal hysterectomy and bilateral salpingo-oophorectomy) History of ectopic History of section Family History Father Prostate cancer Mother Natural Father FH: prostate cancer Mother Alive and well Social History Household Members: Children Household Members Other:: son Housing: House Alcohol intake: never Patient Tobacco Use Status: Current everyday Tobacco user Tobacco use type: Cigarette Cigarette Packs Per Day: 1 Cigarettes Per Day: 20 e-Cigarette/Vaping Use: Never Used Second Hand Smoke Exposure: Yes service: No Current occupational status: retired Cognitive needs: No Hearing needs: No Vision needs: Yes (Glasses) Questionnaire Thrive Questionnaire Date Thrive assessed: 11/27/23 Are you currently unemployed and looking for a job?: No BETTY-7 AMB Questionnaire BETTY-7 Date BETTY - 7 assessed: 11/27/23 Source: Developed by Drs. John Gregory, Gris Worthy, Elias Justice and colleagues, with an educational franco from [employer]. Review of Systems Const Denies headache(s) Eyes Denies loss of vision ENT Denies vertigo, Denies dizziness, Denies headache(s) and Denies sore throat Card Denies chest pain, Denies leg edema and Denies lightheadedness Resp Denies cough, Denies hemoptysis and Denies wheezing GI Denies abdominal pain, Denies melena, Denies constipation, Denies diarrhea and Denies vomiting Denies urinary frequency, Denies dysuria and Denies urinary urgency Musc Denies arthralgias, Denies joint swelling, Denies numbness and Denies tingling Neuro Denies Abnormal speech present, Denies behavioral changes, Denies vertigo, Denies dizziness, Denies headache(s), Denies loss of vision, Denies memory loss, Denies numbness and Denies tingling Psych Denies anxiety, Denies behavioral changes, Denies depression, Denies memory loss and Denies panic attacks Edwardo/Lymph Denies easy bleeding and Denies easy bruising Aller/Immun Denies wheezing Physical exam (Primary Care) Vital Signs: Last Vital Signs Pulse 94 12/10/23 13:15 BP 126/70 12/10/23 13:15 Pulse Ox 99 12/10/23 13:15 Oxygen Delivery Method Room Air 12/10/23 13:15 BMI result Body Mass Index 22.0 Tobacco/Smoking Status: Tobacco use Status Tobacco use date assessed 11/27/23 12/10/23 13:20 Patient Tobacco Use Status Current everyday Tobacco 12/10/23 13:20 Tobacco use type Cigarette 12/10/23 13:20 e-Cigarette/Vaping Use Never Used 12/10/23 13:20 Thrive Assessment: Date of Thrive Assessment Date Thrive assessed 11/27/23 12/10/23 13:20 Const General: healthy appearing, no acute distress, alert and awake Nutritional Appearance: well nourished Orientation/consciousness: oriented to person, oriented to place and oriented to time HENMT Ears: TM's normal bilaterally General nose exam: Normal nasal mucous membranes and turbinates present Eyes Conjunctivae: conjunctivae normal Sclerae: sclerae normal Pupils: Equal, round and reactive pupils present Eyes/upper lids images: [address] IN [address] OVER LEFT BROW, NO ACTIVE BLEEDING OR DISCHARGE NOTED. Neck Neck: Yes no lymphadenopathy and Yes no JVD Thyroid: Thyroid normal Carotids: no bruits Resp Effort & Inspection: normal respiratory effort and not tachypneic Auscultation: no crackles, no rales, no rhonchi and no wheezes Cardio Rate: regular rate Rhythm: regular rhythm Heart sounds: no murmurs and normal S1 and S2 GI Palpation (GI): Soft to palpation, nontender, no hepatomegaly and no splenomegaly Auscultation: normal bowel sounds Skin General skin exam: no rashes or lesions noted and dry skin Neuro General: oriented to person, oriented to place and oriented to time Cranial nerves: Yes Equal, round and reactive pupils present Speech: No Abnormal speech present Gait exam (Neuro): Normal gait present Motor exam (neuro): no tremor noted Extrem Right upper extremity: full ROM Left upper extremity: full ROM Right lower extremity: full ROM; no edema Left lower extremity: full ROM; no edema Psych Mental Status: mental status grossly normal Speech and movement: Normal speech and movement present Affect: normal affect Attitude: cooperative Thought process: Normal thought process present Office Procedures Flu Questionnaire Does the patient have a severe egg allergy?: No Immunizations Fluarix Triv [id number] (PF) 45 mcg (15 mcg x 3)/0.5 mL IM syringe Performing Provider: Mathew Lao PA-C [facility] [place] [facility] Documented (not given) by: CRISTI Coulter on 12/10/23 13:23 Reason Not Given: Patient Refused Coding Level of Care Code Est Pt Level 3 (60028) Diagnoses Encounter for removal of sutures Z48.02 Status post fall Z91.81 Assessment & Plan Assessment & Plan (1) Encounter for removal of sutures: Code(s): Z48.02 - Encounter for removal of sutures Category: Medical Plan: As per HPI (2) Status post fall: Code(s): Z91.81 - History of falling Category: Medical Plan: As per HPI patient reports falling asleep on her chair and leaning forward striking her left brow creating a laceration. Patient received 10 sutures over left brow. Ten sutures removed today from left brow. Orders: Orders 2 Influenza [id number] Immunization Today Z23 - Encounter for immunization
[2023-12-10 13:15] VITALS: BP 126/70; PULSE 94; O2SAT 99; BMI 22.0
== END 2023-12-10 13:52 | disposition home or self-care (01) ==
PROVIDERS: PCP Internal Medicine; Visit Provider Physician Assistant
DX: Z48.02 Encounter for removal of sutures (principal); Z91.81 History of falling; Z23 Encounter for immunization

== ENCOUNTER → 2023-12-10 13:06 | Outpatient (BNVA) | payer OTHER, SELFPAY | PROVIDERS: PCP Internal Medicine; Visit Provider Physician Assistant | DX: Z48.02 Encounter for removal of sutures (principal); Z91.81 History of falling | CPT/HCPCS: 99212 ==

== ENCOUNTER 2023-12-11 13:58 | Outpatient (AMB) | payer OTHER, SELFPAY ==
--- NOTE | 2023-12-11 14:01 | A.OFFVIS_ITS ---
Vital Signs 12/11/23 14:02 Height 5 ft 4 in Weight 131 lb 9.855 oz BMI 22.6 BP 132/78 Blood Pressure Location Rt brachial Position Sitting Pulse 72 Pulse Source Pulse Oximeter Intake Visit Reasons: Med check Intake Note: Patient presents today for a follow-up for Type 2 Diabetes Mellitus: Last Diabetic Eye exam: Has been seeing the Tanyard Worker regularly due to an eye infection Last Podiatry Exam: Does not see a Marketing Rotation Associate Most recent HbA1c: 12.5% 10/23/2023 Random Glucose- 176mg/dL, Today Gear Shaper Required: Yes Gear Shaper Language: Pulmonary Nurse Practitioner Services: Gear Shaper Present Gear Shaper Name: CRISTI Lang/CAMILO Barksdale Information Interpreted: non-clinical & clinical Accompanied by: Self / Same As Patient Allergies metformin Adverse Reaction (Intermediate, Verified 12/10/23 13:23) Abdominal Pain HPI Comments Details: The patient is a 68-year-old female with a past medical history of type 2 diabetes presenting for diabetes. Sinhala video information technology consultant [id number] Medical history: htn, hyperlipidemia, HOCM Current prescribed medications: Taking her trulicity 1.5mg weekly and pioglitazone 30mg daily. At last visit prescribed glipizide and Actos for patient. She read the side effects which including nausea, vomiting, dizziness and heart problems. Was taking Trulicity 4.5mg weekly stopped 2/2 weight loss, prescribed farxiga stopped taking or never took. A1C in 07/2023 >14%. Last POC 12.5%. Recently met with nursing educator and has instituted some dietary changes. Her fasting glucose is now 110-203. When she nears 100 she does still at times start to feel low Micro/macrovascular complications: neuropathy Diet: Fish meat veg at meals. Snack on sugary foods at night-but improving ROS see HPI PHYSICAL EXAM: GENERAL: Alert and oriented x 3. NAD EYES: EOMI. Anicteric. HENT: Moist mucous membranes. No scleral icterus. No cervical lymphadenopathy. LUNGS: Clear to auscultation bilaterally. CARDIOVASCULAR: Regular rate and rhythm. + murmur. ABDOMEN: Soft, non-tender +bs EXTREMITIES: No edema. Non-tender. SKIN: No rashes or lesions. Warm. NEUROLOGIC: No focal neurological deficits. CN II-XII grossly intact PSYCHIATRIC: Cooperative. Appropriate mood and affect [facility] Medical History Vitamin D deficiency Smoker Pure hypercholesterolemia Diabetes mellitus Nephrolithiasis AVNRT (AV louisa re-entry tachycardia) Valvular heart disease Essential hypertension Hyperlipidemia LDL goal <70 Type 2 diabetes mellitus with diabetic polyneuropathy Surgical History Hx of hemorrhoidectomy Status post catheter ablation of slow pathway (~07/01/12) S/P HANNY-BSO (total abdominal hysterectomy and bilateral salpingo-oophorectomy) History of ectopic History of section Family History Father Prostate cancer Mother Natural Father FH: prostate cancer Mother Alive and well Social History Household Members: Children Household Members Other:: son Housing: House Alcohol intake: never Patient Tobacco Use Status: Current everyday Tobacco user Tobacco use type: Cigarette Cigarette Packs Per Day: 1 Cigarettes Per Day: 20 e-Cigarette/Vaping Use: Never Used Second Hand Smoke Exposure: Yes service: No Current occupational status: retired Cognitive needs: No Hearing needs: No Vision needs: Yes (Glasses) Physical Exam Vital Signs: Last Vital Signs Pulse 72 12/11/23 14:02 BP 132/78 12/11/23 14:02 BMI result Body Mass Index 22.6 Assessment & Plan Assessment & Plan (1) Uncontrolled diabetes mellitus with hyperglycemia: Code(s): E11.65 - Type 2 diabetes mellitus with hyperglycemia Category: Medical Qualifiers: Diabetes mellitus type: type 2 Qualified Code(s): E11.65 - Type 2 diabetes mellitus with hyperglycemia Plan: Improving control according to fasting glucose readings Will hold her medications where they are so her body has time to adjust. She will return in 6 weeks and we will update A1C. She will call in the interim as needed Coding Level of Care Code Est Pt Level 3 (80929) Diagnoses Uncontrolled type 2 diabetes mellitus with hyperglycemia E11.65 Diabetes mellitus type: type 2
[2023-12-11 14:02] VITALS: BP 132/78; PULSE 72; BMI 22.6
[2023-12-11 14:14] LABS: Glucose, Whole Blood 176 mg/dL (60-115)
== END 2023-12-11 14:19 | disposition home or self-care (01) ==
PROVIDERS: PCP Internal Medicine; Visit Provider Internal Medicine
DX: E11.65 Type 2 diabetes mellitus with hyperglycemia (principal)

== ENCOUNTER → 2023-12-11 13:58 | Outpatient (BNVA) | payer OTHER, SELFPAY | PROVIDERS: PCP Internal Medicine; Visit Provider Internal Medicine | DX: E11.65 Type 2 diabetes mellitus with hyperglycemia (principal) | CPT/HCPCS: 82947; 99212 ==

== ENCOUNTER 2023-12-16 13:51 | Outpatient (AMB) | payer OTHER, SELFPAY ==
--- NOTE | 2023-12-16 13:57 | A.OFFVIS_ITS ---
Intake Intake Visit Reasons: 60 min-conf School Lunch Manager Required: Yes School Lunch Manager Language: Medical Education Specialist Name: #[id number] Accompanied by: Self / Same As Patient Allergies metformin Adverse Reaction (Intermediate, Verified 12/10/23 13:23) Abdominal Pain HPI Comprehensive Diabetes Asmnt Most Recent Diabetes Results: Creatinine 0.86 mg/dL (0.5-1.4) 12/01/23 Blood Urea Nitrogen 14 mg/dL (9-16) 12/01/23 Sodium 141 mmol/L (135-145) 12/01/23 Potassium 3.9 mmol/L (3.3-5.1) 12/01/23 Chloride 103 mmol/L (96-108) 12/01/23 Carbon Dioxide 29 mmol/L (22-29) 12/01/23 Calcium 10.2 mg/dL (8.4-10.2) 12/01/23 AST 11 U/L (5-31) 12/01/23 ALT 10 U/L (0-31) 12/01/23 Total Protein 7.0 g/dL (6.5-8.0) 12/01/23 Albumin 4.2 g/dL (3.5-5.0) 12/01/23 [facility] Medical History Vitamin D deficiency Smoker Pure hypercholesterolemia Diabetes mellitus Nephrolithiasis AVNRT (AV louisa re-entry tachycardia) Valvular heart disease Essential hypertension Hyperlipidemia LDL goal <70 Type 2 diabetes mellitus with diabetic polyneuropathy Surgical History Hx of hemorrhoidectomy Status post catheter ablation of slow pathway (~07/01/12) S/P HANNY-BSO (total abdominal hysterectomy and bilateral salpingo-oophorectomy) History of ectopic History of section Family History Father Prostate cancer Mother Natural Father FH: prostate cancer Mother Alive and well Social History Household Members: Children Household Members Other:: son Housing: House Alcohol intake: never Patient Tobacco Use Status: Current everyday Tobacco user Tobacco use type: Cigarette Cigarette Packs Per Day: 1 Cigarettes Per Day: 20 e-Cigarette/Vaping Use: Never Used Second Hand Smoke Exposure: Yes service: No Current occupational status: retired Cognitive needs: No Hearing needs: No Vision needs: Yes (Glasses) Assessment & Plan Assessment & Plan (1) Diabetes mellitus: Code(s): E11.9 - Type 2 diabetes mellitus without complications Qualifiers: Diabetes mellitus type: type 2 Diabetes mellitus rn long term care insulin use: without usp use Diabetes mellitus complication status: with hyperglycemia Qualified Code(s): E11.65 - Type 2 diabetes mellitus with hyperglycemia (2) Uncontrolled diabetes mellitus with hyperglycemia: Code(s): E11 - Type 2 diabetes mellitus with hyperglycemia Qualifiers: Diabetes mellitus type: type 2 Qualified Code(s): E11 - Type 2 diab etes mellitus with hyperglycemia Plan: Diabetes self-management education and support participation record Assessment/scale: 1= needs instructed? 2= needs review? 3= comprehend keep point? 4= demonstrates understanding/ competent? NC= Not Covered Topics Learning Objective: Initial visit Initial or post srvc Initial or post srvc Initial or post srvc Initial or post srvc Initial or post srvc Post srvc Comments Pre Edu-assessment/plan Outcome or reassess Outcome or reassess Outcome or reassess Outcome or reassess Outcome or reassess Outcome or reassess Diabetes pathophysiology 1 3 Healthy eating 2 3 Being active 1 3 Taking medication 1 3 A Monitoring glucose 1 3 Acute complication 1 2 Chronic complicated 1 3 Lifestyle and healthy coping 1 3 Diabetes distress in support 1 2 ?Diabetes pathophysiology: ?Defined diabetes med identify own type of diabetes; list 3 options for treating diabetes Healthy eating: ?Described effect of type, amount and ?timing of food on blood glucose; list 3 methods for planning meal Being active: ?State effect of exercise on blood glucose level Taking medication: ?State effect of diabetes medications on diabetes; name diabetes medications taking, action and side effects Monitoring glucose: ?Identify recommended blood glucose targets and personal target Acute complication: ?List symptoms and treatment of hyper and hypoglycemia, DKA, sick day guidelines and guidelines for severe weather or situations of crisis and diabetes supply manage Chronic complication: ?To find the relationship of blood glucose levels to long- term complications of diabetes in screening and preventative measures Lifestyle and healthy coping: ?Described lifestyle and healthy coping strategies to rule out diabetes self-management Diabetes to stress and support: ?Recognize Diabetes to stress and be able to id entified support options Learning objectives: Learning objectives: The patient was provided with verbal and written education on the following topics as outlined below. The patient met all learning objectives and was able to verbalize understanding and provide teach back of education topics discussed . The patient was provided with the opportunity to ask questions and all questions were answered. Patient Assessment Assess patient education level/literacy/barriers Patient questions/concerns, patient's saw PCP in 10/23/2023 A1c was 12.5% Patient is taking pioglitazone 30 mg daily Trulicity 1.5 mg weekly Patient asked if with the improvement in her glucose numbers if she could stop taking medication. Explained to patient is important to continue taking medications when you have diabetes because diabetes medications hope your body manage glucose in her body. If she discontinues medications glucose levels will increase again. What is Diabetes? Pathophysiology How the body produces and uses insulin Identify type of DM Risk factors Signs of Diabetes Brief overview of Diabetes Management Monitoring blood sugar Following a meal plan Regular exercise Maintaining a healthy weight Taking medication as needed Members of the care team (PCP, RN, MA, RD, CDE, repairer resistance welding machines) Blood glucose monitoring When/how often to test Target blood sugar ranges Patient is testing glucose with glucometer once a day Patient's fasting numbers range from 132 to to 172 mg/dL Introduction to Nutrition Importance of healthy diet in managing DM Diet is personalized to individual preference Review patient?s regular diet/food preferences Who prepares meals/does food shopping/ Dining out?/ Barriers? How diet effects glucose Eating 3 balanced meals a day with small, healthy snacks between meals Review food groups Carbohydrates: What is a carbohydrate/Which food/food groups are considered carbohydrates Effect of carbohydrates on blood glucose Portion sizes Reading food labels Basic carb counting (if applicable per nursing assessment) Plate method Meal planning Recommendations: Follow plate method, consistent carbs and read nutritional labels. Smart Goal assesment: Successfully identified it is that she is currently eating that contain carbohydrate 100% of the time New Smart Goal: Patient will increase physical activity to 15 minutes daily between now and next visit with Diabetes Education nurse Educational Materials: The patient was provided with the following written educational materials: Planning Healthy Meals Handout Patient Response to instructions: Comprehension of Instructions: Fair Readiness to make changes: Contemplation How confident they feel about making changes: Positive Portions of this note were created using voice recognition software, please excuse any words or phrases that may have been misinterpreted. Plan Incluir actividad diaria regular. ADA recomienda 30 minutos de ejercicio 5 d?as a la semana. P?rdida de peso, hable con el PCP o el cardi?logo antes de comenzar un nuevo plan. Mida el nivel de az?car en la luis enrique seg?n las indicaciones; Ayuno y comida m?s carter de 2hpp. Observe las tendencias en los resultados. Utilice los resultados y eval?e c?mo los alimentos, la actividad f?sheela y los medicamentos afectan los resultados de az?car en la luis enrique. Lleve el gluc?metro o CGM a la pr?xima visita. Conocer los medicamentos para la diabetes, mcmillan acci?n, los efectos secundarios, la eficacia, la toxicidad, la dosis prescrita, el momento y la frecuencia de administraci?n apropiados, el efecto de las dosis olvidadas y retrasadas y las instrucciones de almacenamiento, viaje y seguridad. T?cnicas de resoluci?n de problemas para el seguimiento de episodios de hipo/hiperglucemia y tratamientos. Reducir los comportamientos de reducci?n de riesgos, dejar de fumar, ex?menes regulares de ojos, pies y dentales. Coding Level of Care Code Est Pt Level 1 (14383) Diagnoses Type 2 diabetes mellitus with hyperglycemia, without long-term current use of insulin E11.65 Diabetes mellitus type: type 2 Diabetes mellitus usp insulin use: without rn long term care use Diabetes mellitus complication status: with hyperglycemia Uncontrolled type 2 diabetes mellitus with hyperglycemia E11.65 Diabetes mellitus type: type 2
== END 2023-12-17 10:22 | disposition home or self-care (01) ==
PROVIDERS: PCP Internal Medicine; Visit Provider Registered Nurse Diabetes Educator
DX: E11.65 Type 2 diabetes mellitus with hyperglycemia (principal)

== ENCOUNTER → 2023-12-16 13:51 | Outpatient (BNVA) | payer OTHER, SELFPAY | PROVIDERS: PCP Internal Medicine; Visit Provider Registered Nurse Diabetes Educator | DX: E11.65 Type 2 diabetes mellitus with hyperglycemia (principal); E11.42 Type 2 diabetes mellitus with diabetic polyneuropathy | CPT/HCPCS: 99211 ==

== ENCOUNTER 2024-01-06 11:08 | Outpatient (AMB) | payer OTHER, SELFPAY ==
--- NOTE | 2024-01-06 11:23 | A.OFFVIS_ITS ---
VS Expanded 01/06/24 11:33 Height 5 ft 4 in Weight 131 lb 9 oz BMI 22.6 Intake Visit Reasons: T1DM Allergies metformin Adverse Reaction (Intermediate, Verified 12/10/23 13:23) Abdominal Pain Nutrition Presentation Details: Pt presents for MNT f/u for T2DM Pt monitoring bg int he past 5 days ranging and bg from 118-134 mg/dl Pt reports having more water , reducing on sugary beverages and working on balancing meals with prot/carbs/fiber Breakfast: scrambled egg and 2 pieces of bread, , ice tea regular (reports diluting with water), coffee with hazelnut Lunch: sandwich guacamole and ham/cheese 1/2 ice tea (mixed with water ,) dinner: soup (noodles/potato rice, chicken, carrots) Physical activity: daily life activities etoh: denies smoking denies BS Monitoring Most Recent Diabetes Results: Creatinine 0.86 mg/dL (0.5-1.4) 12/01/23 Blood Urea Nitrogen 14 mg/dL (9-16) 12/01/23 Sodium 141 mmol/L (135-145) 12/01/23 Potassium 3.9 mmol/L (3.3-5.1) 12/01/23 Chloride 103 mmol/L (96-108) 12/01/23 Carbon Dioxide 29 mmol/L (22-29) 12/01/23 Calcium 10.2 mg/dL (8.4-10.2) 12/01/23 AST 11 U/L (5-31) 12/01/23 ALT 10 U/L (0-31) 12/01/23 Total Protein 7.0 g/dL (6.5-8.0) 12/01/23 Albumin 4.2 g/dL (3.5-5.0) 12/01/23 PFSH Medical History Vitamin D deficiency Smoker Pure hypercholesterolemia Diabetes mellitus Nephrolithiasis AVNRT (AV louisa re-entry tachycardia) Valvular heart disease Essential hypertension Hyperlipidemia LDL goal <70 Type 2 diabetes mellitus with diabetic polyneuropathy Surgical History Hx of hemorrhoidectomy Status post catheter ablation of slow pathway (~07/01/12) S/P HANNY-BSO (total abdominal hysterectomy and bilateral salpingo-oophorectomy) History of ectopic History of section Family History Father Prostate cancer Mother Natural Father FH: prostate cancer Mother Alive and well Social History Household Members: Children Household Members Other:: son Housing: House Alcohol intake: never Patient Tobacco Use Status: Current everyday Tobacco user Tobacco use type: Cigarette Cigarette Packs Per Day: 1 Cigarettes Per Day: 20 e-Cigarette/Vaping Use: Never Used Second Hand Smoke Exposure: Yes service: No Current occupational status: retired Cognitive needs: No Hearing needs: No Vision needs: Yes (Glasses) Assessment & Plan Assessment & Plan (1) Diabetes mellitus: Code(s): E11.9 - Type 2 diabetes mellitus without complications Category: Medical Qualifiers: Diabetes mellitus type: type 2 Diabetes mellitus caretaker insulin use: without caretaker use Diabetes mellitus complication status: with hyperglycemia Qualified Code(s): E11.65 - Type 2 diabetes mellitus with hyperglycemia Plan: Wt: 58 Kg ( 07/2023 ), 58 kg (09/2023), 59 kg (01/01) Est kcal needs as per MSJ: 1600 (40% carb, 30% protein/fat) Est fluid needs as per 25-30 ml/d: 1740 Est prot per day as per 1 g/kg bw: 58 Recommend fiber intake : 8-10 g per day and gradually increase to 25-28 g per day for women and 35-38 g for men or as tolerated Recommend sodium intake per day : less than 2000 mg Educated patient on: ( R = reviewed V = verbalizes understanding N/R = needs review N/A = not applicable * Food sources of carbohydrate, adequate serving sizes and its role in various health conditions: R * Differences between complex carbohydrates a simple carbohydrates, role of fiber in diet: R * Lean protein sources of foods: R * Differences between types of fats and role in diet (mono on saturated fat fatty acids, saturated fatty acids, trans fats): R * Food sources of sodium in salt and healthy modifications for heart health in kidney health: R * Vitamins and minerals: R * Healthy plate method concept: R * Physical activity: Benefits a precaution: R * Hypoglycemia protocol (rule of 15): R V N/R * Dietary prevention of Hyperglycemia: R * Acute /chronic complications of hyperglycemia : R Patient Instructions: Keep hydrated by having water, diluting juices/juice drinks with water Balance the meals with fiber rich foods : including legume, vegetables in sauces, seeds, see list of ideas to increase fiber Have at least 3 cups of dairy per day Coding Level of Care Code Nutr Indiv Subseq (98014) Diagnoses Type 2 diabetes mellitus with hyperglycemia, without long-term current use of insulin E11.65 Diabetes mellitus type: type 2 Diabetes mellitus caretaker insulin use: without group home use Diabetes mellitus complication status: with hyperglycemia Time Spent (min) 20
[2024-01-06 11:33] VITALS: BMI 22.6
== END 2024-01-06 11:41 | disposition home or self-care (01) ==
PROVIDERS: PCP Internal Medicine; Visit Provider Dietitian, Registered
DX: E11.65 Type 2 diabetes mellitus with hyperglycemia (principal)

== ENCOUNTER → 2024-01-06 11:08 | Outpatient (BNVA) | payer OTHER, SELFPAY | PROVIDERS: PCP Internal Medicine; Visit Provider Dietitian, Registered | DX: E11.65 Type 2 diabetes mellitus with hyperglycemia (principal); Z71.3 Dietary counseling and surveillance | CPT/HCPCS: 97803 ==

== ENCOUNTER 2024-01-17 16:21 | Outpatient (AMB) | payer OTHER, SELFPAY ==
[2024-01-17 16:24] VITALS: BP 126/78; PULSE 98; O2SAT 99; BMI 23.2
--- NOTE | 2024-01-17 16:24 | A.OFFPC_ITS ---
Vital Signs 01/17/24 16:24 Height 5 ft 4 in Weight 135 lb 6 oz BMI 23.2 BP 126/78 Blood Pressure Location Lt brachial Position Sitting Pulse 98 Pulse Source Pulse Oximeter Pulse Oximetry (%) 99 Oxygen Delivery Method Room Air Intake Visit Reasons: Uncontrolled DM Guest Room Inspector Required: No Accompanied by: Self / Same As Patient Allergies metformin Adverse Reaction (Intermediate, Verified 01/17/24 18:01) Abdominal Pain Medication List - Last Reconciled 01/17/24 by Pascual King MD atorvastatin 20 mg PO BEDTIME 90 days blood sugar diagnostic (FreeStyle Lite Strips) 1 strip miscellaneous BID blood sugar diagnostic As directed blood-glucose meter (FreeStyle [place] Lite kit) As directed blood-glucose meter (FreeStyle Lite Meter kit) As directed dulaglutide (Trulicity) 1.5 mg (0.5 mL) subcut QWEEK glipizide ER 5 mg PO DAILY lancets (FreeStyle Lancets) As directed twice a day lancets (FreeStyle Lancets) As directed pioglitazone (Actos) 30 mg PO DAILY 90 days Tobacco use date assessed: 01/17/24 Fall risk assessment: 1 Fall in past year Last assessed Fall Risk: 01/17/24 Dental Screening Dental Screen Date: 01/17/24 Did you have a dental visit in the last 12 months?: Yes Did you have a dental problem in the last 6 months where you did not have access to dental care?: No Was dental information given to patient?: Patient has dentist HPI Uncontrolled DM HPI Details Patient comes in today for her follow up visit States that she feels okay Relates that she fell forward back in November 2023 when she fell asleep while sitting on her chair at home and ended up with a complex laceration of her left eyebrow as she was wearing her eyeglasses at the time when she fell She had the laceration sutured and it appears to have healed nicely since She fortunately did not sustain any injury to her eye and CT of the head and cervical spine done at the time also came out negative She is now seeing endocrinology as well as a dietitian and the health educator regularly and states that her blood sugar readings have improved significantly She denies any headaches or dizziness Denies any chest pains, no SOB No nausea/vomiting, no abdominal pain No change in bowel habits noted [facility] Medical History Vitamin D deficiency Smoker Pure hypercholesterolemia Diabetes mellitus Nephrolithiasis AVNRT (AV louisa re-entry tachycardia) Valvular heart disease Essential hypertension Hyperlipidemia LDL goal <70 Type 2 diabetes mellitus with diabetic polyneuropathy Surgical History Hx of hemorrhoidectomy Status post catheter ablation of slow pathway (~07/01/12) S/P HANNY-BSO (total abdominal hysterectomy and bilateral salpingo-oophorectomy) History of ectopic History of section Family History Father Prostate cancer Mother Natural Father FH: prostate cancer Mother Alive and well Social History Household Members: Children Household Members Other:: son Housing: House Alcohol intake: never Patient Tobacco Use Status: Current everyday Tobacco user Tobacco use type: Cigarette Cigarette Packs Per Day: 1 Cigarettes Per Day: 20 e-Cigarette/Vaping Use: Never Used Second Hand Smoke Exposure: Yes service: No Current occupational status: retired Cognitive needs: No Hearing needs: No Vision needs: Yes (Glasses) Questionnaire PHQ-9 Over the last 2 weeks, how often have you been bothered by any of the following problems? 1. Little interest or pleasure in doing things: not at all 2. Feeling down, depressed, or hopeless: several days 3. Trouble falling or staying asleep, or sleeping too much: several days 4. Feeling tired or having little energy: several days 5. Poor appetite or overeating: more than half the days 6. Feeling bad about yourself - or that you are a failure or have let yourself or your family down: not at all 7. Trouble concentrating on things, such as reading the newspaper or watching television: not at all 8. Moving or speaking so slowly that other people could have noticed. Or the opposite - being so fidgety or restless that you have been moving around a lot more than usual: not at all 9. Thoughts that you would be better off or of hurting yourself in some way: not at all Total score: 5 Depression Screening Interpretation: Positive Depression Screening Follow-up: Existing condition and Follow-up Visit Requested Depression Screening Done: Yes 99942 - PHQ-9 Billing: Yes Source: Developed by Drs. John Gregory, Gris Worthy, Elias Justice and colleagues, with an educational franco from [employer]. Thrive Questionnaire Date Thrive assessed: 01/17/24 I am a: Patient What is your living situation today?: I have a steady place to live Within the past 12 months, did the food you bought not last and you didn't have the money to get more?: Never true Within the past 12 months, did you worry whether your food would run out before you got money to buy more?: Never true Do you have trouble paying for medicines?: No Do you have trouble getting transportation to medical appointments?: No Do you have trouble paying your heating and electricity bill?: No Do you have trouble taking care of your child, family member or friend?: No Do you have trouble with day-to-day activities such as bathing, preparing meals, shopping, managing finances, etc.?: No Are you currently unemployed and looking for a job?: No Are you interested in more education?: No Please select the resources that you would like help with: None Currently or been in a relationship where the following occur: No concerns reported THRIVE Score: 0 AUDIT C Alcohol Use Questionnaire (AUDIT-C) 1. How often do you have a drink containing alcohol?: Never 3. How often do you have six or more drinks on one occasion?: Never Total Score: 0 Score Reviewed/Action Taken: Yes BETTY-7 AMB Questionnaire BETTY-7 Date BETTY - 7 assessed: 01/17/24 Feeling nervous, anxious, or on edge: 0 = Not at all Not being able to stop or control worryin = Not at all Worrying too much about different things: 0 = Not at all Trouble relaxin = Not at all Being so restless that it is hard to sit still: 0 = Not at all Becoming easily annoyed or irritable: 0 = Not at all Feeling afraid as if something awful might happen: 0 = Not at all Total BETTY-7 score (0-4 normal; 5-9 mild; 10-14 moderate; 15-21 severe): 0 Source: Developed by Drs. John Gregory, Gris Worthy, Elias Justice and colleagues, with an educational franco from [employer]. Review of Systems Const Denies chills, Denies fatigue, Denies fever(s) and Denies headache(s) ENT Denies dysphagia, Denies dizziness, Denies otalgia, Denies headache(s), Denies neck pain, Denies odynophagia and Denies sore throat Card Denies chest pain, Denies palpitations and Denies dyspnea Resp Denies cough and Denies dyspnea GI Denies abdominal pain, Denies constipation, Denies dysphagia, Denies heartburn, Denies diarrhea, Denies nausea, Denies odynophagia and Denies vomiting Denies difficulty voiding, Reports nocturia and Denies dysuria Musc Denies back pain and Denies neck pain Skin/Breast Denies rash Neuro Denies dizziness and Denies headache(s) Endo Denies fatigue and Denies palpitations Physical exam (Primary Care) Vital Signs: Last Vital Signs Pulse 98 01/17/24 16:24 BP 126/78 01/17/24 16:24 Pulse Ox 99 01/17/24 16:24 Oxygen Delivery Method Room Air 01/17/24 16:24 BMI result Body Mass Index 23.2 Tobacco/Smoking Status: Tobacco use Status Tobacco use date assessed 01/17/24 01/17/24 16:26 Patient Tobacco Use Status Current everyday Tobacco 01/17/24 16:26 Tobacco use type Cigarette 01/17/24 16:26 e-Cigarette/Vaping Use Never Used 01/17/24 16:26 PHQ-9: PHQ-9 Score PHQ-9: Total score 5 01/17/24 16:46 Depression Screening Interpretation: Positive Depression Screening Follow-up: Existing condition and Follow-up Visit Requested Thrive Assessment: Date of Thrive Assessment Date Thrive assessed 01/17/24 01/17/24 16:26 Currently or been in a relationship where the following occur: No concerns reported Const General: no acute distress and alert HENMT Ears: TM's normal bilaterally and EAC's normal Throat: Yes posterior oropharynx normal and Yes tonsils normal Neck Neck: Yes no lymphadenopathy and Yes supple Thyroid: Thyroid normal Resp Auscultation: clear to auscultation bilaterally, no rales and no wheezes Cardio Rate: regular rate Rhythm: regular rhythm Heart sounds: no murmurs GI Palpation (GI): Soft to palpation and nontender Auscultation: normal bowel sounds Skin Rashes: no rashes Extrem General: Yes no clubbing, cyanosis or edema Results AMB Hemoglobin A1c AMB Hemoglobin A1c 8.9 % Last Edit by CRISTI Fraser on 01/17/24 16 :43 Results Reviewed Results Reviewed: Laboratory Last Values Hgb A1c (Clinic) 8.9 % (4.0-6.0) H 01/17/24 16:38 Coding Level of Care Code Est Pt Level 4 (00623) Diagnoses Uncontrolled type 2 diabetes mellitus with hyperglycemia E11.65 Diabetes mellitus type: type 2 Pure hypercholesterolemia E78.00 Vitamin D deficiency E55.9 Smoker F17.200 Additional Codes PHQ-9 - 25886 - PHQ-9 Billing: Yes ([id number]) Assessment & Plan Assessment & Plan (1) Uncontrolled diabetes mellitus with hyperglycemia: Code(s): E11.65 - Type 2 diabetes mellitus with hyperglycemia Category: Medical Qualifiers: Diabetes mellitus type: type 2 Qualified Code(s): E11.65 - Type 2 diabetes mellitus with hyperglycemia Plan: Her in-office HgbA1c today is at 8.9% - this has improved significantly from 1 2.5% just a few months ago on 10/23/2023 - goal is at least <7.0% Reinforced diabetic diet - she is scheduled to leave for [place] on 01/28/2024 and plans to be there for the next 3 months and she is reminded to continue to watch her diet while she is there She is now also seeing endocrinology as well as a brand leader and the diabetic coordinator/educator and she is advised to continue to do so Continue Trulicity 1.5 mg SQ once a week, Pioglitazone 30 mg QD and Glipizide ER 5 mg QD Will have her recheck her labs and HgbA1c in 4 months for follow up (2) Pure hypercholesterolemia: Code(s): E78.00 - Pure hypercholesterolemia, unspecified Category: Medical Plan: She was previously advised to get her follow up labs and repeat fasting lipids done before her appointment today but she unfortunately did not do so Her LDL cholesterol was at 144 mg/dl when it was last checked in July 2023 Reinforced low cholesterol diet Continue Atorvastatin 20 mg QD for now Will have her recheck her labs and fasting lipids in 4 months for follow up (3) Vitamin D deficiency: Code(s): E55.9 - Vitamin D deficiency, unspecified Category: Medical Plan: Continue Vitamin D3 2000 units QD (4) Smoker: Code(s): F17.200 - Nicotine dependence, unspecified, uncomplicated Category: Social Hx Plan: Patient is again counseled on smoking cessation Plan Follow up in 4 months Orders: Orders AMB Hemoglobin A1c Today Z13.9 - Encounter for screening, unspecified Comprehensive [place]. Panel Fast 4 Months E78.00 - Pure hypercholesterolemia, unspecified Hemoglobin A1c 4 Months E11.9 - Type 2 diabetes mellitus without complications UA CC w/rflx Micro + Cult 4 Months R30.0 - Dysuria Vitamin B12 and Folate 4 Months E53.8 - Deficiency of other specified B group vitamins Complete Blood Count Auto Diff 4 Months D64.9 - Anemia, unspecified Lipid Panel 4 Months E78.00 - Pure hypercholesterolemia, unspecified Microalbumin, Random (w Creat) 4 Months E11.9 - Type 2 diabetes mellitus without complications TSH reflex Free T4 4 Months E78.00 - Pure hypercholesterolemia, unspecified Vitamin D 25-OH Total 4 Months E55.9 - Vitamin D deficiency, unspecified
== END 2024-01-17 16:52 | disposition home or self-care (01) ==
PROVIDERS: PCP Internal Medicine; Visit Provider Internal Medicine
DX: E11.65 Type 2 diabetes mellitus with hyperglycemia (principal); E78.00 Pure hypercholesterolemia, unspecified; E55.9 Vitamin D deficiency, unspecified; F17.200 Nicotine dependence, unspecified, uncomplicated; Z13.9 Encounter for screening, unspecified

== ENCOUNTER → 2024-01-17 16:21 | Outpatient (BNVA) | payer OTHER, SELFPAY | PROVIDERS: PCP Internal Medicine; Visit Provider Internal Medicine | DX: E11.65 Type 2 diabetes mellitus with hyperglycemia (principal); E78.00 Pure hypercholesterolemia, unspecified; E55.9 Vitamin D deficiency, unspecified; F17.200 Nicotine dependence, unspecified, uncomplicated; Z71.6 Tobacco abuse counseling | CPT/HCPCS: 83036; 96127; 99212 ==

== ENCOUNTER 2024-01-22 13:53 | Outpatient (AMB) | payer OTHER, SELFPAY ==
--- NOTE | 2024-01-22 14:08 | A.OFFVIS_ITS ---
Vital Signs 01/22/24 14:09 Height 5 ft 4 in Weight 134 lb 7.712 oz BMI 23.1 BP 118/78 Blood Pressure Location Rt brachial Position Sitting Pulse 89 Pulse Source Pulse Oximeter Intake Visit Reasons: DM/CONFIRMED Intake Note: Patient presents today for a follow-up for Type 2 Diabetes Mellitus: Last Diabetic Eye exam: Has been seeing the Transmission Rebuilder regularly due to an eye infection Last Podiatry Exam: Does not see a Engineering Mathematician Most recent HbA1c: 8.9%, 01/17/2024 Random Glucose- 134 mg/dL, Today Pension Adviser Required: Yes Pension Adviser Language: Supervisor Machine Setter Services: Pension Adviser Present Pension Adviser Name: CRISTI Lang/CAMILO Barksdale Information Interpreted: non-clinical & clinical Accompanied by: Self / Same As Patient Allergies metformin Adverse Reaction (Intermediate, Verified 01/17/24 18:01) Abdominal Pain HPI Comments Details: The patient is a 69-year-old female with a past medical history of type 2 diabetes presenting for diabetes. Medical history: htn, hyperlipidemia, HOCM Current prescribed medications: Taking trulicity 1.5mg weekly and pioglitazone 30mg daily. At last visit prescribed glipizide and Actos for patient. She read the side effects which including nausea, vomiting, dizziness and heart problems. Was taking Trulicity 4.5mg weekly stopped 2/2 weight loss, prescribed farxiga stopped taking or never took. Recent A1C 8.9% 01/17/24. 07/2023 >14%. Last POC 12.5%. Has met with agricultural extension educator and has instituted some dietary changes. She continues to adjust to lower readings. No hypoglycemia but she does not want to increase any dosing/add medications at this time. Micro/macrovascular complications: neuropathy Diet: Fish meat veg at meals. Snack on sugary foods at night-but improving ROS see HPI PHYSICAL EXAM: GENERAL: Alert and oriented x 3. NAD EYES: EOMI. Anicteric. HENT: Moist mucous membranes. No scleral icterus. No cervical lymphadenopathy. LUNGS: Clear to auscultation bilaterally. CARDIOVASCULAR: Regular rate and rhythm. + murmur. ABDOMEN: Soft, non-tender +bs EXTREMITIES: No edema. Non-tender. SKIN: No rashes or lesions. Warm. NEUROLOGIC: No focal neurological deficits. CN II-XII grossly intact PSYCHIATRIC: Cooperative. Appropriate mood and affect [facility] Medical History Vitamin D deficiency Smoker Pure hypercholesterolemia Diabetes mellitus Nephrolithiasis AVNRT (AV louisa re-entry tachycardia) Valvular heart disease Essential hypertension Hyperlipidemia LDL goal <70 Type 2 diabetes mellitus with diabetic polyneuropathy Surgical History Hx of hemorrhoidectomy Status post catheter ablation of slow pathway (~07/01/12) S/P HANNY-BSO (total abdominal hysterectomy and bilateral salpingo-oophorectomy) History of ectopic History of section Family History Father Prostate cancer Mother Natural Father FH: prostate cancer Mother Alive and well Social History Household Members: Children Household Members Other:: son Housing: House Alcohol intake: never Patient Tobacco Use Status: Current everyday Tobacco user Tobacco use type: Cigarette Cigarette Packs Per Day: 1 Cigarettes Per Day: 20 e-Cigarette/Vaping Use: Never Used Second Hand Smoke Exposure: Yes service: No Current occupational status: retired Cognitive needs: No Hearing needs: No Vision needs: Yes (Glasses) Physical Exam Vital Signs: Last Vital Signs Pulse 89 01/22/24 14:09 BP 118/78 01/22/24 14:09 BMI result Body Mass Index 23.1 Results Reviewed Results Reviewed: Laboratory Last Values Glucose (Clinic) 134 mg/dL (60-115) H 01/22/24 14:13 Assessment & Plan Assessment & Plan (1) Uncontrolled diabetes mellitus with hyperglycemia: Code(s): E11.65 - Type 2 diabetes mellitus with hyperglycemia Category: Medical Qualifiers: Diabetes mellitus type: type 2 Qualified Code(s): E11.65 - Type 2 diabetes mellitus with hyperglycemia Plan: Improving control Recommended but patient declined any medication increases/additions at this time Will follow up Coding Level of Care Code Est Pt Level 4 (72523) Diagnoses Uncontrolled type 2 diabetes mellitus with hyperglycemia E11.65 Diabetes mellitus type: type 2
[2024-01-22 14:09] VITALS: BP 118/78; PULSE 89; BMI 23.1
[2024-01-22 14:19] LABS: Glucose, Whole Blood 134 mg/dL (60-115)
== END 2024-01-22 14:33 | disposition home or self-care (01) ==
PROVIDERS: PCP Internal Medicine; Visit Provider Internal Medicine
DX: E11.65 Type 2 diabetes mellitus with hyperglycemia (principal)

== ENCOUNTER → 2024-01-22 13:53 | Outpatient (BNVA) | payer OTHER, SELFPAY | PROVIDERS: PCP Internal Medicine; Visit Provider Internal Medicine | DX: E11.65 Type 2 diabetes mellitus with hyperglycemia (principal); E78.5 Hyperlipidemia, unspecified; I10 Essential (primary) hypertension | CPT/HCPCS: 82947; 99212 ==

== ENCOUNTER 2024-09-03 11:35 | Outpatient (REF) | payer OTHER, SELFPAY ==
[2024-09-03 11:53] LABS: MANUAL DIFF FLAG NO
[2024-09-03 12:24] LABS: Appearance Urine Clear; Color Urine Yellow; Glucose Urine UA >=1000 mg/dL (Negative); Leukocyte Esterase Urine Negative (Negative); Nitrite Urine Negative (Negative); Specific Gravity - Urine >= 1.030 (1.005-1.025); UMIC TRIGGER UACC YES; Urine Blood Negative (Negative); Urine Ketones Trace mg/dL (Negative); Urine Protein Trace mg/dL (Neg-Trace)
[2024-09-03 12:31] LABS: Basophils Absolute Auto 0.1 X10*3/uL (0.0-0.2); Basophils Percent Auto 0.6 % (0-2); Eosinophils Absolute Auto 0.1 X10*3/uL (0.0-0.4); Eosinophils Percent Auto 0.8 % (0-4); Hematocrit 41.8 % (37.0-47.0); Hemoglobin 14.1 g/dl (12.0-16.0); Imm Gran Abs Auto 0.02 X10*3/uL (0.00-0.03); Imm Gran Pct Auto 0.3 % (0.0-0.4); Lymphocytes Absolute Auto 2.2 X10*3/uL (1.2-4.9); Lymphocytes Percent Auto 27.3 % (20-40); Mean Corpuscular HGB Conc 33.7 g/dl (31.0-35.0); Mean Corpuscular Hemoglobin 29.3 pg (27.0-33.0); Mean Corpuscular Volume 86.9 fL (80.0-98.0); Monocytes Absolute Auto 0.5 X10*3/uL (0.1-1.2); Monocytes Percent Auto 6.7 % (2-11); Neutrophils Absolute Auto 5.1 x10*3/uL (2.0-8.3); Neutrophils Percent Auto 64.3 % (45-73); Platelet Count 200 X10*3/uL (160-400); Red Blood Count 4.81 X10*6/uL (4.20-5.50); Red Cell Distribution Width 12.7 % (11.0-16.0)
[2024-09-03 12:34] LABS: Bacteria Urine None Seen (None Seen); Hyaline Casts Urine 0-2 /LPF (0-2); RBC Urine 0-2 /HPF (0-2); Squamous Epithelial Cell Urine 0-2 /HPF (0-2); WBC Urine 0-5 /HPF (0-5)
[2024-09-03 12:42] LABS: Estimated Average Glucose 335 mg/dL; Hemoglobin A1c % 13.3 % (<6.0)
[2024-09-03 13:01] LABS: Creatinine Urine 194.37 mg/dL; Microalbum/Creatinine Ratio Ur 30.3 ug/mg cr (<30)
[2024-09-03 13:08] LABS: Alanine Aminotransferase 16 U/L (0-31); Albumin Level 4.3 g/dL (3.5-5.0); Alkaline Phosphatase 110 U/L (39-117); Anion Gap 12 (12-20); Aspartate Amino Transferase 22 U/L (5-31); Bilirubin Total 0.9 mg/dL (0.0-1.0); Blood Urea Nitrogen 9 mg/dL (9-16); Calcium 9.8 mg/dL (8.4-10.2); Carbon Dioxide 27 mmol/L (22-29); Chloride 104 mmol/L (96-108); Cholesterol 232 mg/dL (<200); Estimated Glomerular Filt Rate > 60; Glucose Fasting 288 mg/dL (60-99); HDL Cholesterol 46 mg/dL (>40); LDL Cholesterol Calculated 160 mg/dL (<100); Sodium 139 mmol/L (135-145); Total Protein 6.9 g/dL (6.5-8.0); Triglycerides 130 mg/dL (<150)
[2024-09-03 13:19] LABS: TSH reflex Free T4 0.66 uIU/mL (0.32-4.0); Vitamin D 25-OH Total 35.8 ng/mL (>30)
[2024-09-03 13:32] LABS: Vitamin B12 274 pg/mL (200-900)
--- OUTSIDE RECORDS SUMMARY | 2024-09-03 14:00 | XMS_ITS ---
Continuity of Care Document (CCD) Created on: September 03, 2024 Beth Chin External Reference #: [id number] : [id number] Sex: Female Author Organization [facility] [address] [place] [address] Phone [phone] Care Team Providers Care Hydrology Professor Name Role Phone Pascual King Care Team Information Axle Bearing Polisher [phone] Problems Active Problems Provider Date Type 2 diabetes mellitus Papito Niño M.D. Onset: 01/09/2023 Essential hypertension Papito Niño M.D. O nset: 01/09/2023 Hyperlipidemia Papito Niño M.D. Onset: 1 03/11/2022 Nephrosclerosis Papito Niño M.D. Onset: 1 03/11/2022 Pure hypercholesterolemia Imani Tanner Onset: 01/09/2023 Heart valve disorder Papito Niño M.D. Ons et: 01/09/2023 Social History Type Date Description Comments Sex Female Sex Unknown Allergies and adverse reactions Active Allergies Criticality Reaction Severity Comments Date Metformin Unable to assess criticality 01/09/2023 Procedures Date Code Description Status 01/09/2023 NSHOWOFF No Show Office Visit Complet ed Medical Devices Description No Information Available Encounters Description No Information Available Assessments Description No Information Available Plan of Treatment No Information Available Functional Status Description No Information Available Mental Status Description No Information Available Referrals Description No Information Available
== END 2024-09-03 11:36 | disposition home or self-care (01) ==
LOC: HO.LAB 11:35
PROVIDERS: PCP Internal Medicine; Visit Provider Internal Medicine
DX: D64.9 Anemia, unspecified (principal); E78.00 Pure hypercholesterolemia, unspecified; E11.9 Type 2 diabetes mellitus without complications; E53.8 Deficiency of other specified B group vitamins; E55.9 Vitamin D deficiency, unspecified
CPT/HCPCS: 36415; 80053; 80061; 81001; 82043; 82306; 82570; 82607; 82746; 83036; 84443; 85025

== ENCOUNTER 2024-09-17 13:32 | Outpatient (AMB) | payer OTHER, SELFPAY ==
--- NOTE | 2024-09-17 13:34 | MHC.OFFVIS ---
Vital Signs 09/17/24 13:37 Height 5 ft 4 in Weight 127 lb 6.835 oz BMI 21.9 BP 128/72 Blood Pressure Location Rt brachial Position Sitting Pulse 98 Pulse Source Pulse Oximeter Pulse Oximetry (%) 96 Oxygen Delivery Method Room Air Intake Visit Reasons: type 2 dm Intake Note: Patient present today to follow up on Type 2 Diabetes Mellitus. Last Diabetic Eye exam: approx 1 months ago Last Podiatry Visit: Does not see a Crew Boat Operator Random Glucose: 292 mg/dl HgA1C: 13.3% 09/03/2024 Lacing Cutter Required: Yes Lacing Cutter Language: [employer]ins [employer] Access[employer] Salesperson Services: Lacing Cutter Present Lacing Cutter Name: [facility] [place] Katarzyna Harper Information Interpreted: non-clinical & clinical Accompanied by: Self / Same As Patient Allergies metformin Adverse Reaction (Intermediate, Verified 09/17/24 13:38) Abdominal Pain Medication List - Last Reconciled 09/17/24 by John Hudson MD atorvastatin 20 mg PO BEDTIME 90 days blood sugar diagnostic (FreeStyle Lite Strips) 1 strip miscellaneous BID blood sugar diagnostic As directed blood-glucose meter (FreeStyle [place] Lite kit) As directed blood-glucose meter (FreeStyle Lite Meter kit) As directed dulaglutide (Trulicity) 1.5 mg (0.5 mL) subcut QWEEK glipizide ER 5 mg PO DAILY lancets (FreeStyle Lancets) As directed lancets (FreeStyle Lancets) As directed twice a day pioglitazone (Actos) 30 mg PO DAILY 90 days HPI Comments Details: The patient is a 69-year-old female with a past medical history of type 2 diabetes presenting for diabetes. Medical history: htn, hyperlipidemia, HOCM. Pt last saw Dr. Chance on 01/22/2024 Current prescribed medications: Taking trulicity 1.5mg weekly and pioglitazone 30mg daily. At last visit prescribed glipizide and Actos for patient. She read the side effects which including nausea, vomiting, dizziness and heart problems. Was taking Trulicity 4.5mg weekly stopped 2/2 weight loss, prescribed farxiga stopped taking or never took. Recent A1C 8.9% 01/16/. 07/2023 >14%. Last POC 12.5%. Has met with front office secretary and has instituted some dietary changes. She continues to adjust to lower readings. No hypoglycemia but she does not want to increase any dosing/add medications at this time. Micro/macrovascular complications: neuropathy Diet: Fish meat veg at meals. Snack on sugary foods at night-but improving Last saw optho: 1 wk ago will be having glucoma surgery Unfortunately, patient did not bring sensor or glucometer to follow-up visit No hypoglycemia 1 bother and son with Type 2 DM PFSH Medical History Vitamin D deficiency Smoker Pure hypercholesterolemia Diabetes mellitus Nephrolithiasis AVNRT (AV louisa re-entry tachycardia) Valvular heart disease Essential hypertension Hyperlipidemia LDL goal <70 Type 2 diabetes mellitus with diabetic polyneuropathy Surgical History Hx of hemorrhoidectomy Status post catheter ablation of slow pathway (~07/01/12) S/P HANNY-BSO (total abdominal hysterectomy and bilateral salpingo-oophorectomy) History of ectopic History of section Family History Father Prostate cancer Mother Natural Father FH: prostate cancer Mother Alive and well Social History Household Members: Children Household Members Other:: son Housing: House Alcohol intake: never Patient Tobacco Use Status: Current everyday Tobacco user Tobacco use type: Cigarette Cigarette Packs Per Day: 1 Cigarettes Per Day: 20 e-Cigarette/Vaping Use: Never Used Second Hand Smoke Exposure: Yes service: No Current occupational status: retired Cognitive needs: No Hearing needs: No Vision needs: Yes (Glasses) Physical Exam Vital Signs: BMI result Body Mass Index 21.9 Absence of Cushingoid features. Absence of acromegalic features. Neck exam reveals nl size thyroid about 15 gms. No thyroid nodules palpable. No carotid bruits present. Lungs CTA. Heart S1 S2, Reg R/R. No M/R/ G. Skin exam reveals absence of vitiligo or acanthosis nigricans. Abdominal exam reveals Soft NT/ND with NA BS. No organomegaly present. Neck Other: . Extrem Other: Visual exam of foot performed. No ulcerations or open lesions. No onchomycosis, no callouses.Pulses 2 + distally Sensation intact to monofilament exam. Vibratory sensation sensed isdecreased with 128 Hz tuning fork Assessment & Plan Assessment & Plan (1) Uncontrolled diabetes mellitus with hyperglycemia: Code(s): E11.65 - Type 2 diabetes mellitus with hyperglycemia Category: Medical Qualifiers: Diabetes mellitus type: type 2 Qualified Code(s): E11.65 - Type 2 diabetes mellitus with hyperglycemia Plan: 69-year-old female with a history of type 2 diabetes with poor glycemic control and known microvascular complications namely neuropathy . The plan is to supply the patient with a Azeb sensor to gather more information. Patient most likely needs insulin in combination with the above agents but will need more data before initiating. Will have patient see front office secretary for follow-up. She then we will follow up with Dr. Guaman 1 week later. Would at that point start basal insulin with a without prandial insulin based on sensor results. I will also check BETTY 65 antibodies to rule out type 1 diabetes considering lack of family history (2) Hyperlipidemia LDL goal <70: Code(s): E78.5 - Hyperlipidemia, unspecified Category: Medical Plan: Will restart atorvastatin 20 mg q.d. and recheck lipid profile in 4 weeks Orders: Orders Lipid Panel 4 Weeks E11.65 - Type 2 diabetes mellitus with hyperglycemia Glutamic acid decarboxylase Ab 4 Weeks E11.65 - Type 2 diabetes mellitus with hyperglycemia Referrals Diabetes Education Referral E11.65 - Type 2 diabetes mellitus with hyperglycemia Nutrition/Dietitian Referral E11.65 - Type 2 diabetes mellitus with hyperglycemia Medications: Refilled atorvastatin 20 mg PO BEDTIME 90 tabs 0RF 90 days E78.5 - Hyperlipidemia, unspecified Discontinued pioglitazone (Actos) Discontinued Reason: Doctor's Order 30 mg PO DAILY 90 days 90 tabs 1RF glipizide ER Discontinued Reason: Doctor's Order 5 mg PO DAILY 90 tabs 1RF Coding Level of Care Code Est Pt Level 4 (44148) Diagnoses Uncontrolled type 2 diabetes mellitus with hyperglycemia E11.65 Diabetes mellitus type: type 2 Hyperlipidemia LDL goal <70 E78.5
--- OUTSIDE RECORDS SUMMARY | 2024-09-17 13:35 | XMS_ITS | Continuity of Care Document ---
Author Organization [facility] [address] [place] [address] Phone [phone] Care Team Providers Care Customs Opener Verifier Packer Name Role Phone Pascual King Care Team Information Safety Inspector [phone] Problems Active Problems Provider Date Type 2 [...]
[2024-09-17 13:37] VITALS: BP 128/72; PULSE 98; O2SAT 96; BMI 21.9
[2024-09-17 13:47] LABS: Glucose, Whole Blood 292 mg/dL (60-115)
== END 2024-09-17 14:46 | disposition home or self-care (01) ==
LOC: HO.ENCR 13:33
PROVIDERS: PCP Internal Medicine; Visit Provider Internal Medicine Endocrinology, Diabetes & Metabolism
DX: E11.65 Type 2 diabetes mellitus with hyperglycemia (principal); E78.5 Hyperlipidemia, unspecified
CPT/HCPCS: 99214

== ENCOUNTER → 2024-09-17 13:32 | Outpatient (BNVA) | payer OTHER, SELFPAY | PROVIDERS: PCP Internal Medicine; Visit Provider Internal Medicine Endocrinology, Diabetes & Metabolism | DX: E11.9 Type 2 diabetes mellitus without complications (principal) | CPT/HCPCS: 82947; 99211; 99212 ==

== ENCOUNTER 2024-09-17 14:10 | Outpatient (AMB) | payer OTHER, SELFPAY ==
--- NOTE | 2024-09-17 14:31 | MHC.AMDMED ---
Intake Intake Visit Reasons: DM Electronic Assembly Required: Yes Electronic Assembly Language: Senior Producer Name: Lexi [facility] [place] Accompanied by: Self / Same As Patient Allergies metformin Adverse Reaction (Intermediate, Verified 09/17/24 13:38) Abdominal Pain HPI Comprehensive Diabetes Asmnt Most Recent Diabetes Results: Microalb/Creat Ratio, (<30) 30.3 ug/mg cr H 09/03/24 Cholesterol, (<200) 232 mg/dL H 09/03/24 HDL Cholesterol, (>40) 46 mg/dL 09/03/24 Triglycerides, (<150) 130 mg/dL 09/03/24 Creatinine, (0.5-1.4) 0.65 mg/dL 09/03/24 BUN, (9-16) 9 mg/dL 09/03/24 Sodium, (135-145) 139 mmol/L 09/03/24 Potassium, (3.3-5.1) 4.0 mmol/L 09/03/24 Chloride, (96-108) 104 mmol/L 09/03/24 Carbon Dioxide, (22-29) 27 mmol/L 09/03/24 Calcium, (8.4-10.2) 9.8 mg/dL 09/03/24 AST, (5-31) 22 U/L 09/03/24 ALT, (0-31) 16 U/L 09/03/24 Total Protein, (6.5-8.0) 6.9 g/dL 09/03/24 Albumin, (3.5-5.0) 4.3 g/dL 09/03/24 [facility] Medical History Vitamin D deficiency Smoker Pure hypercholesterolemia Diabetes mellitus Nephrolithiasis AVNRT (AV louisa re-entry tachycardia) Valvular heart disease Essential hypertension Hyperlipidemia LDL goal <70 Type 2 diabetes mellitus with diabetic polyneuropathy Surgical History Hx of hemorrhoidectomy Status post catheter ablation of slow pathway (~07/01/12) S/P HANNY-BSO (total abdominal hysterectomy and bilateral salpingo-oophorectomy) History of ectopic History of section Family History Father Prostate cancer Mother Natural Father FH: prostate cancer Mother Alive and well Social History Household Members: Children Household Members Other:: son Housing: House Alcohol intake: never Patient Tobacco Use Status: Current everyday Tobacco user Tobacco use type: Cigarette Cigarette Packs Per Day: 1 Cigarettes Per Day: 20 e-Cigarette/Vaping Use: Never Used Second Hand Smoke Exposure: Yes service: No Current occupational status: retired Cognitive needs: No Hearing needs: No Vision needs: Yes (Glasses) Assessment & Plan Assessment & Plan (1) Diabetes type 2, controlled: Code(s): E11.9 - Type 2 diabetes mellitus without complications Plan: Patient at visit to set up an sigmacare phone jc User name:Pt's email Password: [email or web address]! Instructed patient sensors water proof you can shower, or swim do not submerge sensor in water for over 30 minutes Is sensor falls off cannot put back in you need to replace sensor, customer service number given to patient for sensor replacement Sensor placed on the Back of Left arm Patient left visit with sensor in warmup Reviewed how to interpret trend arrows Discussed lag time between finger stick and sensor data.? Instructed patient the importance of having blood glucometer for backup testing if needed Reviewed delay of CGM from fingersticks Reminded Pt that if symptoms do not match sensor still needs to check fingersticks. Portions of this note were created using voice recognition software, please excuse any words or phrases that may have been misinterpreted. Patient Instructions: Instrucciones para el paciente: CGM proporciona informaci?n sobre el control de la glucosa en luis enrique a lo kathleen del d?a, incluidas la hiperglucemia y la hipoglucemia. Contin?e controlando la glucosa en luis enrique seg?n las instrucciones. Siga las pautas de nutrici?n proporcionadas. Informe cualquier molestia de inmediato al proveedor de atenci?n m?dica. Mantente dat hidratado. Puede ba?arse, ducharse, nadar y hacer ejercicio mientras usa el sensor de glucosa. No sumerja el sensor de glucosa en agua madhavi m?s de 30 minutos. Retire el sensor para jessica resonancia magn?patricia o jessica tomograf?a computarizada. Evite la m?quina de chantell X en los aeropuertos: retire el sensor o solicite la varita Coding Level of Care Code Est Pt Level 1 (12591) Diagnoses Diabetes type 2, controlled E11.9
== END 2024-09-17 14:46 | disposition home or self-care (01) ==
LOC: HO.ENCR 14:11
PROVIDERS: PCP Internal Medicine; Visit Provider Registered Nurse Diabetes Educator
DX: E11.9 Type 2 diabetes mellitus without complications (principal)

== ENCOUNTER 2024-09-30 12:56 | Outpatient (AMB) | payer OTHER, SELFPAY ==
[2024-09-30 12:59] VITALS: BP 110/70; PULSE 104; O2SAT 97; BMI 22.1
--- NOTE | 2024-09-30 12:59 | A.OFFVIS_ITS ---
Vital Signs 3 09/30/24 12:59 Height 5 ft 4 in Weight 128 lb 11.999 oz BMI 22.1 BP 110/70 Blood Pressure Location Rt brachial Position Sitting Pulse 104 H Pulse Source Pulse Oximeter Pulse Oximetry (%) 97 Oxygen Delivery Method Room Air Intake Visit Reasons: T2DM Intake Note: Patient present today for Type 2 Diabetes Mellitus Last Diabetic eye exam: 09/2024 Last Podiatry Visit: Doesn't have one Random Glucose: 262 mg/dl HgA1C: 13.3% 09/03/24 Cognos Report Developer Required: Yes Cognos Report Developer Language: Bladder Trimmer Services: Cognos Report Developer Present Cognos Report Developer Name: Meredith Information Interpreted: non-clinical & clinical Accompanied by: Self / Same As Patient Allergies metformin Adverse Reaction (Intermediate, Verified 09/30/24 13:03) Abdominal Pain Medication List - Last Reconciled 09/30/24 by Opal Knott MD atorvastatin 20 mg PO BEDTIME 90 days blood sugar diagnostic (FreeStyle Lite Strips) 1 strip miscellaneous BID blood sugar diagnostic As directed blood-glucose meter (FreeStyle [place] Lite kit) As directed blood-glucose meter (FreeStyle Lite Meter kit) As directed dulaglutide (Trulicity) 1.5 mg (0.5 mL) subcut QWEEK lancets (FreeStyle Lancets) As directed lancets (FreeStyle Lancets) As directed twice a day nitrofurantoin monohyd/m-cryst 100 mg (Macrobid) 100 mg PO Q12H 7 days HPI Comments Details: 69-year-old female with a past medical history of type 2 diabetes presenting for diabetes follow up. Medical history: htn, hyperlipidemia, HOCM. She is a patient of Dr. Hudson's, was scheduled for me for this visit for CGM review to start her on insulin as Dr. Hudson is out of office this week. Current prescribed medications: trulicity 1.5mg weekly (hasnt taken in 3-4 weeks ) Prior therapy: At some point she was on glipizide and Actos, however unclear why patient stopped taking these. She was also prescribed Farxiga by Dr. Soria at some point, again she has stopped taking this at some point. A1C 07/2023 >14%. 01/17/24. 8.9% 09/03/2024: 13.3% A1c Random Glucose: 262 mg/d * Freestyle Azeb 3+ downloaded from September to 09/28/2024 Time CGM active 76% Average glucose 304 mg/dL G VT 10.6% Glucose variability 17.8% Within target range 1% High 14% Very I 85% Low 0% No hypoglycemia noted Interpretation: Overall hyperglycemic throughout with blood sugars in the 300s mostly. 1 bother and son with Type 2 DM Micro/macrovascular complications: Last Diabetic eye exam: 09/2024, she has been having some blurry vision likely due to her elevated blood sugars, no documented history of retinopathy. Last Podiatry Visit: Doesn't have one, does have neuropathy. Kidney disease: Has microalbuminuria, urine microalbumin/creatinine ratio 30.3 09/03/24, EGFR greater than 60 in August 2024 No history of CAD or stroke Statin: On atorvastatin 20 mg daily LDL elevated at 160 mg/dL from August 2024 Not on Slim or Arb Diet: Fish meat veg at meals. Snack on sugary foods at night-but improving Physical exam General: sitting comfortably in no acute distress HEENT: normocephalic/atraumatic, Neck: supple, symmetrical, Cardiac: normal heart sounds Pulm: normal breath sounds B/L, no added breath sounds Abd: not distended, no tenderness Extremities: no edema, no signs of myxedema Laboratory Tests 08/06/23 01/17/24 09/03/24 11:00 16:38 11:43 Hgb Hct Plt Count Glucose (Clinic) Hgb A1c (Clinic) 8.9 H Hemoglobin A1c % > 14.0 H AST ALT Albumin Cholesterol LDL Cholesterol, Calc HDL Cholesterol Vitamin B12 25-OH Vitamin D Total Urine Creatinine 194.37 Urine Microalbumin 59.0 Microalb/Creat Ratio 30.3 H 09/03/24 09/17/24 11:52 13:42 Hgb 14.1 Hct 41.8 Plt Count 200 Glucose (Clinic) 292 H Hgb A1c (Clinic) Hemoglobin A1c % 13.3 H AST 22 ALT 16 Albumin 4.3 Cholesterol 232 H LDL Cholesterol, Calc 160 H HDL Cholesterol 46 Vitamin B12 274 25-OH Vitamin D Total 35.8 Urine Creatinine Urine Microalbumin Microalb/Creat Ratio Laboratory Tests 08/06/23 11:00 C-Peptide 1.51 BETTY Antibody <5 [facility] Medical History (Updated 09/30/24 @ 13:38 by Opal Knott MD) Hyperlipidemia associated with type 2 diabetes mellitus Long-term insulin use Vitamin D deficiency Smoker Pure hypercholesterolemia Diabetes mellitus Nephrolithiasis AVNRT (AV louisa re-entry tachycardia) Valvular heart disease Essential hypertension Hyperlipidemia LDL goal <70 Type 2 diabetes mellitus with diabetic polyneuropathy Surgical History Hx of hemorrhoidectomy Status post catheter ablation of slow pathway (~07/01/12) S/P HANNY-BSO (total abdominal hysterectomy and bilateral salpingo-oophorectomy) History of ectopic History of section Family History Father Prostate cancer Mother Natural Father FH: prostate cancer Mother Alive and well Social History Household Members: Children Household Members Other:: son Housing: House Alcohol intake: never Patient Tobacco Use Status: Current everyday Tobacco user Tobacco use type: Cigarette Cigarette Packs Per Day: 1 Cigarettes Per Day: 20 e-Cigarette/Vaping Use: Never Used Second Hand Smoke Exposure: Yes service: No Current occupational status: retired Cognitive needs: No Hearing needs: No Vision needs: Yes (Glasses) Office Procedures Glucose Monitoring Details Details: See [facility] [id number] - Glucose monitoring, continuous-physician I&R Procedure code (CPT) selection complete Assessment & Plan Assessment & Plan (1) Uncontrolled diabetes mellitus with hyperglycemia: Code(s): E11.65 - Type 2 diabetes mellitus with hyperglycemia Category: Medical Qualifiers: Diabetes mellitus type: type 2 Qualified Code(s): E11.65 - Type 2 diabetes mellitus with hyperglycemia Plan: 69-year-old female with a history of type 2 diabetes with poor glycemic control and known microvascular complications namely neuropathy A1c elevated at 13.3% from August 2024, CGM data downloaded, she met with a early childhood special educator 09/17/2024 and Rithmio 3+ was applied, data shows she is hyperglycemic overall. No hypoglycemia. At this time we need to start her on insulin. We will also resume her Trulicity. She thinks she has not taken it for the past 3-4 weeks. Plan: -start insulin Lantus 10 units daily -nursing did education regarding administration of insulin today -hypoglycemia education done -resume Trulicity 1.5 mg weekly injection -follow up in 2-3 weeks -continue glucose monitoring through CGM sensor -discussed importance of checking fingersticks if she has hypoglycemia on the sensor -up-to-date on eye visit, no documented history of retinopathy but has glaucoma -has neuropathy, does not see Podiatry -has microalbuminuria, in the near future should be started on SGLT2 once her blood sugars are better controlled (2) Hyperlipidemia LDL goal <70: Code(s): E78.5 - Hyperlipidemia, unspecified Category: Medical Plan: Apparently was not adherent with the atorvastatin? Currently on atorvastatin 20 mg daily. LDL elevated at 160 mg/dL from August 2024. Discussed importance of lowering cholesterol levels to prevent stroke/heart attack. Plan: -current continue atorvastatin 20 mg daily, plan to repeat lipid panel in 3-4 months sometime around fall/winter 2024 (3) Long-term insulin use: Code(s): Z79.4 - package clerk (current) use of insulin Category: Medical Plan: Started on insulin. Hypoglycemia education done (4) Hyperlipidemia associated with type 2 diabetes mellitus: Code(s): E11.69 - Type 2 diabetes mellitus with other specified complication; E78.5 - Hyperlipidemia, unspecified Category: Medical Plan: Continue atorvastatin 20 mg daily. Plan to repeat lipid panel in fall/winter 2024. Trulicity we will also do your the risk of ASCVD related mortality risk. Plan I spent 30 minutes in reviewing the record, seeing the patient and documenting in the medical record. Orders: Orders 2 AMB Glucose Monitoring Today E11.65 - Type 2 diabetes mellitus with hyperglycemia, Z79.4 - custodial (current) use of insulin Medications: New 2 blood-glucose sensor (FreeStyle Azeb 3 Plus Sensor device) As directed every 15 days 6 ea 3RF E11.65 - Type 2 diabetes mellitus with hyperglycemia, Z79.4 - custodial (current) use of insulin insulin glargine (Lantus Solostar U-100 Insulin) 10 units (0.1 mL) subcut BEDTIME 3 mL 1RF pen needle, diabetic (1st Tier Unifine Pentips) As directed to inject insulin once a day 50 ea 1RF Patient Instructions: continue wearing sensor IF you are unable to figure out how to put the sensor , till your appointment with Jonathon on 10/12/24, use the booklet to get help and if still not able to continue checking fingersticks Start insulin Lantus 10 units daily at bedtime Restart Trulicity 1.5 mg weekly injection Rule of 15 Treatment for Hypoglycemia (Low blood sugar) If your blood glucose is low (70 and below)*, follow the steps below to treat: Eat or drink something from the list below equal to 15 grams of carbohydrate (carb). Rest for 15 minutes Re-check your blood glucose. If it is still low, (below 70), repeat step 1 above. ? If your next meal is more than an hour away, you will need to eat one carbohydrate choice as a snack to keep your blood glucose from going low again. ?If you can't figure out why you have low blood glucose, call your healthcare provider, as your medicine may need to be adjusted. ?Always carry something with you to treat an insulin reaction. Use food from the list below. ? Foods equal to One Carbohydrate Choice (15 grams of carbohydrate): 3 Glucose ?tablets or 4 Dextrose tablets 4 ounces of fruit juice 5-6 ounces (about 1/2 can) of regular soda such as Coke or Pepsi ? 7-8 gummy or regular Life Savers ? 1 Tbsp. of sugar or jelly NOTE: If your blood sugar is less than 50, double the portion above for a total of 30 gm. ?Carbohydrate. ? Follow meal plan of 45-60 g of consistent carbohydrates at 3 meals each day and 15 g of carbohydrate at 1-2 snacks each day. Contin?e usando el sensor. Si no sabe c?mo colocarse el sensor hasta mcmillan pankaj con Jonathon el 06/16/24, utilice el folleto para obtener ayuda. Si a?n no puede, contin?e con las punciones capilares. Inicie la administraci?n de insulina Lantus 10 unidades diarias antes de acostarse. Reinicie la inyecci?n semanal de Trulicity 1.5 mg. Tratamiento de la Ivy del 15 para la Hipoglucemia (nivel bajo de az?car en luis enrique) Si mcmillan nivel de glucosa en luis enrique es bajo (70 o menos)*, siga los pasos a continuaci?n para tratarlo: Coma o brad algo de la lista a continuaci?n equivalente a 15 gramos de carbohidratos. Descanse 15 minutos. Vuelva a medir mcmillan nivel de glucosa en luis enrique. Si sigue bajo (menos de 70), repita el paso 1 anterior. Si mcmillan pr?xima comida es en m?s de jessica hora, deber? consumir un carbohidrato oj refrigerio para evitar que mcmillan nivel de glucosa en luis enrique baje de nuevo. Si no puede determinar la causa de mcmillan nivel bajo de glucosa en luis enrique, llame a mcmillan profesional de la aundrea, ya que podr?a ser necesario ajustar mcmillan medicamento. Lleve siempre consigo algo para tratar jessica reacci?n a la insulina. Use alimentos de la lista a continuaci?n. Alimentos equivalentes a jessica opci?n de carbohidratos (15 gramos): 3 tabletas de glucosa o 4 tabletas de dextrosa 113 g de jugo de fruta 140 g (aproximadamente 1/2 estelita) de refresco regular oj Coca-Cola o Pepsi 7-8 gomitas o Life Savers regulares 1 cucharada de az?car o jalea NOTA: Si mcmillan nivel de az?car en luis enrique es inferior a 50, duplique la porci?n anterior para un total de 30 g de carbohidratos. Siga un plan de alimentaci?n de 45 a 60 g de carbohidratos consistentes en 3 comidas al d?a y 15 g de carbohidratos en 1 o 2 refrigerios al d?a. Coding Level of Care Code Est Pt Level 4 (83919) Diagnoses Uncontrolled type 2 diabetes mellitus with hyperglycemia E11.65 Diabetes mellitus type: type 2 Hyperlipidemia LDL goal <70 E78.5 Long-term insulin use Z79.4 Hyperlipidemia associated with type 2 diabetes mellitus E11.69; E78.5 CPT Codes Details - CPT: 24330 - Glucose monitoring, continuous-physician I&R ([id number]) Time Spent (min) 30
[2024-09-30 13:08] LABS: Glucose, Whole Blood 262 mg/dL (60-115)
--- OUTSIDE RECORDS SUMMARY | 2024-09-30 13:19 | XMS_ITS | Continuity of Care Document ---
Author Organization [facility] [address] [place] [address] Phone [phone] Care Team Providers Care Desk Representative Name Role Phone Pascual King Care Team Information Tabular Typist [phone] Problems Active Problems Provider Date Type 2 [...]
== END 2024-09-30 14:05 | disposition home or self-care (01) ==
LOC: HO.ENCR 12:56
PROVIDERS: PCP Internal Medicine; Visit Provider Student in an Organized Health Care Education/Training Program
DX: E11.65 Type 2 diabetes mellitus with hyperglycemia (principal); E78.5 Hyperlipidemia, unspecified; Z79.4 Long term (current) use of insulin; E11.69 Type 2 diabetes mellitus with other specified complication
CPT/HCPCS: 95251; 99214

== ENCOUNTER → 2024-09-30 12:56 | Outpatient (BNVA) | payer OTHER, SELFPAY | PROVIDERS: PCP Internal Medicine; Visit Provider Student in an Organized Health Care Education/Training Program | DX: E11.65 Type 2 diabetes mellitus with hyperglycemia (principal); E11.69 Type 2 diabetes mellitus with other specified complication; E78.5 Hyperlipidemia, unspecified; Z79.4 Long term (current) use of insulin | CPT/HCPCS: 82947; 96127; 99212 ==

== ENCOUNTER 2024-09-30 14:41 | Outpatient (AMB) | payer OTHER, SELFPAY ==
[2024-09-30 14:50] VITALS: BP 122/80; PULSE 75; O2SAT 96; BMI 21.9
--- NOTE | 2024-09-30 14:50 | MHC.PC.OV ---
Vital Signs 09/30/24 14:50 Height 5 ft 4 in Weight 127 lb 6 oz BMI 21.9 BP 122/80 Blood Pressure Location Lt brachial Position Sitting Pulse 75 Pulse Source Pulse Oximeter Pulse Oximetry (%) 96 Oxygen Delivery Method Room Air Intake Visit Reasons: 4 Months f/u- A1C needed Head Of Precision Targeting Required: No Accompanied by: Self / Same As Patient Allergies metformin Adverse Reaction (Intermediate, Verified 10/04/24 23:32) Abdominal Pain Medication List - Last Reconciled 10/04/24 by Pascual iKng MD atorvastatin 20 mg PO BEDTIME 90 days blood sugar diagnostic (FreeStyle Lite Strips) 1 strip miscellaneous BID blood sugar diagnostic As directed blood-glucose meter (FreeStyle Frost Lite kit) As directed blood-glucose meter (FreeStyle Lite Meter kit) As directed blood-glucose sensor (FreeStyle Azeb 3 Plus Sensor device) As directed every 15 days blood-glucose sensor (FreeStyle Azeb 3 Plus Sensor device) As directed every 15 days clotrimazole 1% 1 appful vaginal BEDTIME 7 days dulaglutide (Trulicity) 1.5 mg (0.5 mL) subcut QWEEK fluconazole 100 mg PO DAILY 3 days insulin glargine (Lantus Solostar U-100 Insulin) 10 units (0.1 mL) subcut BEDTIME lancets (FreeStyle Lancets) As directed lancets (FreeStyle Lancets) As directed twice a day nitrofurantoin monohyd/m-cryst 100 mg (Macrobid) 100 mg PO Q12H 7 days pen needle, diabetic (1st Tier Unifine Pentips) As directed to inject insulin once a day Tobacco use date assessed: 09/30/24 Last assessed Fall Risk: 09/30/24 Dental Screening Dental Screen Date: 09/30/24 HPI 4 Months f/u- A1C needed HPI Details Patient comes in today for her follow up visit States that she feels okay except for a vaginal yeast infection currently - has increased vaginal itching / irritation and (+) whitish vaginal discharge Would like to get some Rx to help clear up her yeast infection She was just seen by endocrinology for follow up of her diabetes earlier this afternoon She denies any headaches or dizziness Denies any chest pains, no increased shortness of breath No nausea/vomiting, no abdominal pain No change in bowel habits noted She had her follow-up labs done last month - to discuss her results [facility] Medical History Hyperlipidemia associated with type 2 diabetes mellitus Long-term insulin use Vitamin D deficiency Smoker Pure hypercholesterolemia Diabetes mellitus Nephrolithiasis AVNRT (AV louisa re-entry tachycardia) Valvular heart disease Essential hypertension Hyperlipidemia LDL goal <70 Type 2 diabetes mellitus with diabetic polyneuropathy Surgical History Hx of hemorrhoidectomy Status post catheter ablation of slow pathway (~07/01/12) S/P HANNY-BSO (total abdominal hysterectomy and bilateral salpingo-oophorectomy) History of ectopic History of section Family History Father Prostate cancer Mother Natural Father FH: prostate cancer Mother Alive and well Social History Household Members: Children Household Members Other:: son Housing: House Alcohol intake: never Patient Tobacco Use Status: Current everyday Tobacco user Tobacco use type: Cigarette Cigarette Packs Per Day: 1 Cigarettes Per Day: 20 e-Cigarette/Vaping Use: Never Used Second Hand Smoke Exposure: Yes service: No Current occupational status: retired Cognitive needs: No Hearing needs: No Vision needs: Yes (Glasses) Questionnaire PHQ-9 Over the last 2 weeks, how often have you been bothered by any of the following problems? 1. Little interest or pleasure in doing things: not at all 2. Feeling down, depressed, or hopeless: several days 3. Trouble falling or staying asleep, or sleeping too much: several days 4. Feeling tired or having little energy: several days 5. Poor appetite or overeating: several days 6. Feeling bad about yourself - or that you are a failure or have let yourself or your family down: several days 7. Trouble concentrating on things, such as reading the newspaper or watching television: not at all 8. Moving or speaking so slowly that other people could have noticed. Or the opposite - being so fidgety or restless that you have been moving around a lot more than usual: not at all 9. Thoughts that you would be better off or of hurting yourself in some way: not at all Total score: 5 Depression Screening Interpretation: Positive Depression Screening Follow-up: Existing condition and Follow-up Visit Requested Depression Screening Done: Yes 21199 - PHQ-9 Billing: Yes Source: Developed by Drs. John Gregory, Gris Worthy, Elias Justice and colleagues, with an educational franco from [email or web address]. Thrive Questionnaire Date Thrive assessed: 09/30/24 I am a: Patient What is your living situation today?: I choose not to answer this question Within the past 12 months, did the food you bought not last and you didn't have the money to get more?: Sometimes True Within the past 12 months, did you worry whether your food would run out before you got money to buy more?: Sometimes True Do you have trouble paying for medicines?: No Do you have trouble getting transportation to medical appointments?: No Do you have trouble paying your heating and electricity bill?: Yes Do you have trouble taking care of your child, family member or friend?: No Do you have trouble with day-to-day activities such as bathing, preparing meals, shopping, managing finances, etc.?: I choose not to answer this question Are you currently unemployed and looking for a job?: No Are you interested in more education?: I choose not to answer this question Please select the resources that you would like help with: Food and Paying for medicine Currently or been in a relationship where the following occur: No concerns reported THRIVE Score: 3 AUDIT C Alcohol Use Questionnaire (AUDIT-C) 1. How often do you have a drink containing alcohol?: Never 3. How often do you have six or more drinks on one occasion?: Never Total Score: 0 Score Reviewed/Action Taken: Yes BETTY-7 AMB Questionnaire BETTY-7 Date BETTY - 7 assessed: 09/30/24 Feeling nervous, anxious, or on edge: 1 = Several days Not being able to stop or control worryin = Not at all Worrying too much about different things: 1 = Several days Trouble relaxin = Several days Being so restless that it is hard to sit still: 1 = Several days Becoming easily annoyed or irritable: 0 = Not at all Feeling afraid as if something awful might happen: 0 = Not at all Total EBTTY-7 score (0-4 normal; 5-9 mild; 10-14 moderate; 15-21 severe): 4 Source: Developed by Drs. John Gregory, Gris Worthy, Elias Justice and colleagues, with an educational franco from [email or web address]. Review of Systems Const Denies chills, Denies fatigue, Denies fever(s) and Denies headache(s) ENT Denies dysphagia, Denies dizziness, Denies otalgia, Denies headache(s), Denies neck pain, Denies odynophagia and Denies sore throat Card Denies chest pain, Denies palpitations and Denies dyspnea Resp Denies cough and Denies dyspnea GI Denies abdominal pain, Denies constipation, Denies dysphagia, Denies heartburn, Denies diarrhea, Denies nausea, Denies odynophagia and Denies vomiting Denies difficulty voiding, Reports nocturia and Denies dysuria Musc Denies back pain and Denies neck pain Skin/Breast Denies rash Neuro Denies dizziness and Denies headache(s) Endo Denies fatigue and Denies palpitations Physical exam (Primary Care) Vital Signs: Last Vital Signs Pulse 75 09/30/24 14:50 BP 122/80 09/30/24 14:50 Pulse Ox 96 09/30/24 14:50 Oxygen Delivery Method Room Air 09/30/24 14:50 BMI result Body Mass Index 21.9 Tobacco/Smoking Status: Tobacco use Status Tobacco use date assessed 09/30/24 09/30/24 14:52 Patient Tobacco Use Status Current everyday Tobacco 09/30/24 14:52 Tobacco use type Cigarette 09/30/24 14:52 e-Cigarette/Vaping Use Never Used 09/30/24 14:52 PHQ-9: PHQ-9 Score PHQ-9: Total score 5 09/30/24 15:33 Depression Screening Interpretation: Positive Depression Screening Follow-up: Existing condition and Follow-up Visit Requested Thrive Assessment: Date of Thrive Assessment Date Thrive assessed 09/30/24 09/30/24 14:52 Currently or been in a relationship where the following occur: No concerns reported Const General: no acute distress and alert HENMT Ears: TM's normal bilaterally and EAC's normal Throat: Yes posterior oropharynx normal and Yes tonsils normal Neck Neck: Yes no lymphadenopathy and Yes supple Thyroid: Thyroid normal Resp Auscultation: clear to auscultation bilaterally, no rales and no wheezes Cardio Rate: regular rate Rhythm: regular rhythm Heart sounds: no murmurs GI Palpation (GI): Soft to palpation and nontender Auscultation: normal bowel sounds Skin Rashes: no rashes Extrem General: Yes no clubbing, cyanosis or edema Results Reviewed Results Reviewed: Laboratory Tests 09/03/24 09/03/24 09/30/24 11:43 11:52 13:04 WBC 8.0 Hgb 14.1 Hct 41.8 Plt Count 200 Sodium 139 Potassium 4.0 Creatinine 0.65 Estimated GFR > 60 Glucose (Clinic) 262 H Hemoglobin A1c % 13.3 H Calcium 9.8 AST 22 ALT 16 Triglycerides 130 Cholesterol 232 H LDL Cholesterol, Calc 160 H HDL Cholesterol 46 Vitamin B12 274 25-OH Vitamin D Total 35.8 TSH 0.66 Ur Specific [place] >= 1.030 H Urine Protein Trace Urine Glucose (UA) >=1000 H Urine Blood Negative Urine Nitrite Negative Ur Leukocyte Esterase Negative Microalb/Creat Ratio 30.3 H Coding Level of Care Code Est Pt Level 4 (40472) Diagnoses Uncontrolled type 2 diabetes mellitus with hyperglycemia E11.65 Diabetes mellitus type: type 2 Pure hypercholesterolemia E78.00 Vitamin D deficiency E55.9 Vaginal candidiasis B37.31 Smoker F17.200 Additional Codes PHQ-9 - 89698 - PHQ-9 Billing: Yes ([id number]) Assessment & Plan Assessment & Plan (1) Uncontrolled diabetes mellitus with hyperglycemia: Code(s): E11.65 - Type 2 diabetes mellitus with hyperglycemia Category: Medical Qualifiers: Diabetes mellitus type: type 2 Qualified Code(s): E11.65 - Type 2 diabetes mellitus with hyperglycemia Plan: Her HgbA1c was at 13.3% last month - goal is at least <7.0% Reinforced diabetic diet She is now also seeing endocrinology as well as a pattern chart writer and the diabetic coordinator/educator and she is advised to continue to do so - was just seen earlier this afternoon Continue Lantus 10 units Q HS, and Trulicity 1.5 mg SQ once a week Will have her recheck her labs and HgbA1c in 3 months for follow up (2) Pure hypercholesterolemia: Code(s): E78.00 - Pure hypercholesterolemia, unspecified Category: Medical Plan: Results of her labs done last month reviewed and discussed with patient - she is cautioned that her LDL cholesterol was still elevated at 160 mg/dl on her recent labs, which is even higher than it was at 144 mg/dl back in July 2023 Reinforced low cholesterol diet Continue Atorvastatin 20 mg QD for now - she admits to poor compliance with her medications lately Will have her recheck her labs and fasting lipids in 3 months for follow up (3) Vitamin D deficiency: Code(s): E55.9 - Vitamin D deficiency, unspecified Category: Medical Plan: Continue Vitamin D3 2000 units QD (4) Vaginal candidiasis: Code(s): B37.31 - Acute candidiasis of vulva and vagina Category: Medical Plan: Start Fluconazole 100 mg QD x 3 days Per request, will also start her on Clotrimazole 1% vaginal cream Q HS x 7 days (5) Smoker: Code(s): F17.200 - Nicotine dependence, unspecified, uncomplicated Category: Social Hx Plan: Patient is again counseled on complete smoking cessation Plan Follow up in 3 months Orders: Orders Comprehensive [place]. Panel Fast 3 Months E78.00 - Pure hypercholesterolemia, unspecified Microalbumin, Random (w Creat) 3 Months E11.9 - Type 2 diabetes mellitus without complications UA CC w/rflx Micro + Cult 3 Months R30.0 - Dysuria Vitamin D 25-OH Total 3 Months E55.9 - Vitamin D deficiency, unspecified Hemoglobin A1c 3 Months E11.9 - Type 2 diabetes mellitus without complications Complete Blood Count Auto Diff 3 Months D64.9 - Anemia, unspecified Lipid Panel 3 Months E78.00 - Pure hypercholesterolemia, unspecified TSH reflex Free T4 3 Months E78.00 - Pure hypercholesterolemia, unspecified Medications: New fluconazole 100 mg PO DAILY 3 tabs 0RF 3 days clotrimazole 1% 1 appful vaginal BEDTIME 45 grams 0RF 7 days
== END 2024-09-30 15:33 | disposition home or self-care (01) ==
LOC: HO.HMCH 14:42
PROVIDERS: PCP Internal Medicine; Visit Provider Internal Medicine
DX: E11.65 Type 2 diabetes mellitus with hyperglycemia (principal); E78.00 Pure hypercholesterolemia, unspecified; E55.9 Vitamin D deficiency, unspecified; B37.31 Acute candidiasis of vulva and vagina; F17.200 Nicotine dependence, unspecified, uncomplicated

== ENCOUNTER 2024-10-15 12:02 | Outpatient (AMB) | payer OTHER, SELFPAY ==
--- OUTSIDE RECORDS SUMMARY | 2024-10-15 12:29 | XMS_ITS | Continuity of Care Document ---
Author Organization [facility] [address] [place] [address] Phone [phone] Care Team Providers Care Quality Assurance/R&D Lab Technician Name Role Phone Pascual King Care Team Information Center Medical Director [phone] Problems Active Problems Provider Date Type 2 [...]
--- NOTE | 2024-10-15 12:57 | MHC.AMDMED ---
Intake Intake Visit Reasons: CGM patient placement Accompanied by: Self / Same As Patient Allergies metformin Adverse Reaction (Intermediate, Verified 10/04/24 23:32) Abdominal Pain HPI Comprehensive [facility] Most Recent Diabetes Results: Hemoglobin A1c 6.6 % 09/22/19 Microalb/Creat Ratio, (<30) 30.3 ug/mg cr H 09/03/24 Cholesterol, (<200) 232 mg/dL H 09/03/24 HDL Cholesterol, (>40) 46 mg/dL 09/03/24 Triglycerides, (<150) 130 mg/dL 09/03/24 Creatinine, (0.5-1.4) 0.65 mg/dL 09/03/24 BUN, (9-16) 9 mg/dL 09/03/24 Sodium, (135-145) 139 mmol/L 09/03/24 Potassium, (3.3-5.1) 4.0 mmol/L 09/03/24 Chloride, (96-108) 104 mmol/L 09/03/24 Carbon Dioxide, (22-29) 27 mmol/L 09/03/24 Calcium, (8.4-10.2) 9.8 mg/dL 09/03/24 AST, (5-31) 22 U/L 09/03/24 ALT, (0-31) 16 U/L 09/03/24 Total Protein, (6.5-8.0) 6.9 g/dL 09/03/24 Albumin, (3.5-5.0) 4.3 g/dL 09/03/24 [facility] Medical History Hyperlipidemia associated with type 2 diabetes mellitus Long-term insulin use Vitamin D deficiency Smoker Pure hypercholesterolemia Diabetes mellitus Nephrolithiasis AVNRT (AV louisa re-entry tachycardia) Valvular heart disease Essential hypertension Hyperlipidemia LDL goal <70 Type 2 diabetes mellitus with diabetic polyneuropathy Surgical History Hx of hemorrhoidectomy Status post catheter ablation of slow pathway (~07/01/12) S/P HANNY-BSO (total abdominal hysterectomy and bilateral salpingo-oophorectomy) History of ectopic History of section Family History Father Prostate cancer Mother Natural Father FH: prostate cancer Mother Alive and well Social History Household Members: Children Household Members Other:: son Housing: House Alcohol intake: never Patient Tobacco Use Status: Current everyday Tobacco user Tobacco use type: Cigarette Cigarette Packs Per Day: 1 Cigarettes Per Day: 20 e-Cigarette/Vaping Use: Never Used Second Hand Smoke Exposure: Yes service: No Current occupational status: retired Cognitive needs: No Hearing needs: No Vision needs: Yes (Glasses) Assessment & Plan Assessment & Plan (1) Diabetes type 2, controlled: Code(s): E11.9 - Type 2 diabetes mellitus without complications Plan: Personal Continuous Glucose Monitor: Patients CGM information reviewed, patient uses [employer] 3+ with phone jc Patient's glucose has significantly improved will wearing glucose sensor patient reports she has reduced carbohydrate portion meals She is now taking Lantus 10 units daily. Patient had 1 episode of hypoglycemia, but reports she verified with fingerstick and fingerstick was at 99 mg/dL Reviewed with patient how to treat hypoglycemia with rule of 15s, Reviewed how to interpret trend arrows Reminded patient that to check finger sticks if symptoms do not match sensor reading. Discussed lag time between finger stick and sensor data.? Patient able to insert sensor independently in office without issue.? Portions of this note were created using voice recognition software, please excuse any words or phrases that may have been misinterpreted. Patient Instructions: Instrucciones para el paciente: CGM proporciona informaci?n sobre el control de la glucosa en luis enrique a lo kathleen del d?a, incluidas la hiperglucemia y la hipoglucemia. Contin?e controlando la glucosa en luis enrique seg?n las instrucciones. Siga las pautas de nutrici?n proporcionadas. Informe cualquier molestia de inmediato al proveedor de atenci?n m?dica. Mantente dat hidratado. Puede ba?arse, ducharse, nadar y hacer ejercicio mientras usa el sensor de glucosa. No sumerja el sensor de glucosa en agua madhavi m?s de 30 minutos. Retire el sensor para ejssica resonancia magn?patricia o jessica tomograf?a computarizada. Evite la m?quina de chantell X en los aeropuertos: retire el sensor o solicite la varita Coding Level of Care Code Est Pt Level 1 (03939) Diagnoses Diabetes type 2, controlled E11.9
== END 2024-10-15 12:59 | disposition home or self-care (01) ==
LOC: HO.ENCR 12:03
PROVIDERS: PCP Internal Medicine; Visit Provider Registered Nurse Diabetes Educator
DX: E11.9 Type 2 diabetes mellitus without complications (principal)

== ENCOUNTER → 2024-10-15 12:02 | Outpatient (BNVA) | payer OTHER, SELFPAY | PROVIDERS: PCP Internal Medicine; Visit Provider Registered Nurse Diabetes Educator | DX: E11.9 Type 2 diabetes mellitus without complications (principal) | CPT/HCPCS: 99211 ==

== ENCOUNTER 2024-11-02 11:12 | Outpatient (AMB) | payer OTHER, SELFPAY ==
--- NOTE | 2024-11-02 11:22 | MHC.PC.OV ---
Vital Signs 11/02/24 11:24 Height 5 ft 4 in Weight 127 lb 4 oz BMI 21.8 BP 126/78 Blood Pressure Location Lt brachial Position Sitting Pulse 101 H Pulse Source Pulse Oximeter Pulse Oximetry (%) 97 Oxygen Delivery Method Room Air Intake Visit Reasons: [facility] 11/12 & lt 11/24 Machine Stacker Required: No Accompanied by: Self / Same As Patient Allergies metformin Adverse Reaction (Intermediate, Verified 11/03/24 04:18) Abdominal Pain Medication List - Last Reconciled 11/03/24 by Pascual King MD atorvastatin 20 mg PO BEDTIME 90 days blood sugar diagnostic (FreeStyle Lite Strips) 1 strip miscellaneous BID blood sugar diagnostic As directed blood-glucose meter (FreeStyle Voss Lite kit) As directed blood-glucose meter (FreeStyle Lite Meter kit) As directed blood-glucose sensor (FreeStyle Azbe 3 Plus Sensor device) As directed every 15 days blood-glucose sensor (FreeStyle Azeb 3 Plus Sensor device) As directed every 15 days dulaglutide (Trulicity) 1.5 mg (0.5 mL) subcut QWEEK insulin glargine (Lantus Solostar U-100 Insulin) 10 units (0.1 mL) subcut BEDTIME lancets (FreeStyle Lancets) As directed lancets (FreeStyle Lancets) As directed twice a day pen needle, diabetic (1st Tier Unifine Pentips) As directed to inject insulin once a day Tobacco use date assessed: 11/02/24 Last assessed Fall Risk: 11/02/24 Dental Screening Dental Screen Date: 11/02/24 HPI [facility] 11/12 & lt 11/24 HPI Details Patient comes in today at the request of Dr. Alvin [facility] of [facility] [place] for a preoperative medical examination for clearance for surgery She is scheduled for cataract extraction/phacoemusification with IOL under MAC of the right eye on 11/12/2024, followed by the same procedure on the left eye 2 weeks later on 11/24/2024 Patient states that she feels okay She denies any headaches or dizziness Denies any chest pains, no shortness of breath No nausea/vomiting, no abdominal pain No change in bowel habits noted Patient would also like to get a referral to have her hearing checked she feels that she is starting to lose her hearing [facility] Medical History (Updated 11/03/24 @ 04:59 by Pascual King MD) Cataracts, bilateral Hyperlipidemia associated with type 2 diabetes mellitus Long-term insulin use Vitamin D deficiency Smoker Pure hypercholesterolemia Diabetes mellitus Nephrolithiasis AVNRT (AV louisa re-entry tachycardia) Valvular heart disease Essential hypertension Hyperlipidemia LDL goal <70 Type 2 diabetes mellitus with diabetic polyneuropathy Surgical History Hx of hemorrhoidectomy Status post catheter ablation of slow pathway (~07/01/12) S/P HANNY-BSO (total abdominal hysterectomy and bilateral salpingo-oophorectomy) History of ectopic History of section Family History Father Prostate cancer Mother Natural Father FH: prostate cancer Mother Alive and well Social History Household Members: Children Household Members Other:: son Housing: House Alcohol intake: never Patient Tobacco Use Status: Current everyday Tobacco user Tobacco use type: Cigarette Cigarette Packs Per Day: 1 Cigarettes Per Day: 20 e-Cigarette/Vaping Use: Never Used Second Hand Smoke Exposure: Yes service: No Current occupational status: retired Cognitive needs: No Hearing needs: No Vision needs: Yes (Glasses) Questionnaire PHQ-9 Over the last 2 weeks, how often have you been bothered by any of the following problems? 1. Little interest or pleasure in doing things: not at all 2. Feeling down, depressed, or hopeless: several days 3. Trouble falling or staying asleep, or sleeping too much: several days 4. Feeling tired or having little energy: several days 5. Poor appetite or overeating: several days 6. Feeling bad about yourself - or that you are a failure or have let yourself or your family down: several days 7. Trouble concentrating on things, such as reading the newspaper or watching television: not at all 8. Moving or speaking so slowly that other people could have noticed. Or the opposite - being so fidgety or restless that you have been moving around a lot more than usual: not at all 9. Thoughts that you would be better off or of hurting yourself in some way: not at all Total score: 5 Depression Screening Interpretation: Positive Depression Screening Follow-up: Existing condition and Follow-up Visit Requested Depression Screening Done: Yes [id number] - PHQ-9 Billing: Yes Source: Developed by Drs. John Gregory, Gris Worthy, Elias Justice and colleagues, with an educational franco from [employer]. Thrive Questionnaire Date Thrive assessed: 11/02/24 I am a: Patient What is your living situation today?: I choose not to answer this question Within the past 12 months, did the food you bought not last and you didn't have the money to get more?: Sometimes True Within the past 12 months, did you worry whether your food would run out before you got money to buy more?: Sometimes True Do you have trouble paying for medicines?: No Do you have trouble getting transportation to medical appointments?: No Do you have trouble paying your heating and electricity bill?: Yes Do you have trouble taking care of your child, family member or friend?: No Do you have trouble with day-to-day activities such as bathing, preparing meals, shopping, managing finances, etc.?: I choose not to answer this question Are you currently unemployed and looking for a job?: No Are you interested in more education?: I choose not to answer this question Please select the resources that you would like help with: None Currently or been in a relationship where the following occur: No concerns reported THRIVE Score: 3 AUDIT C Alcohol Use Questionnaire (AUDIT-C) 1. How often do you have a drink containing alcohol?: Never 3. How often do you have six or more drinks on one occasion?: Never Total Score: 0 Score Reviewed/Action Taken: Yes BETTY-7 AMB Questionnaire BETTY-7 Date BETTY - 7 assessed: 11/02/24 Feeling nervous, anxious, or on edge: 1 = Several days Not being able to stop or control worryin = Not at all Worrying too much about different things: 1 = Several days Trouble relaxin = Several days Being so restless that it is hard to sit still: 1 = Several days Becoming easily annoyed or irritable: 0 = Not at all Feeling afraid as if something awful might happen: 0 = Not at all Total BETTY-7 score (0-4 normal; 5-9 mild; 10-14 moderate; 15-21 severe): 4 Source: Developed by Drs. John Gregory, Gris Worthy, Elias Justice and colleagues, with an educational franco from [employer]. Review of Systems Const Denies chills, Denies fatigue, Denies fever(s) and Denies headache(s) ENT Denies dysphagia, Denies dizziness, Denies otalgia, Denies headache(s), Reports hearing loss, Denies neck pain, Denies odynophagia and Denies sore throat Card Denies chest pain, Denies palpitations and Denies dyspnea Resp Denies cough and Denies dyspnea GI Denies abdominal pain, Denies constipation, Denies dysphagia, Denies heartburn, Denies diarrhea, Denies nausea, Denies odynophagia and Denies vomiting Denies difficulty voiding, Reports nocturia and Denies dysuria Musc Denies back pain and Denies neck pain Skin/Breast Denies rash Neuro Denies dizziness and Denies headache(s) Endo Denies fatigue and Denies palpitations Physical exam (Primary Care) Vital Signs: Last Vital Signs Pulse 101 H 11/02/24 11:24 BP 126/78 11/02/24 11:24 Pulse Ox 97 11/02/24 11:24 Oxygen Delivery Method Room Air 11/02/24 11:24 BMI result Body Mass Index 21.8 Tobacco/Smoking Status: Tobacco use Status Tobacco use date assessed 11/02/24 11/02/24 11:29 Patient Tobacco Use Status Current everyday Tobacco 11/02/24 11:29 Tobacco use type Cigarette 11/02/24 11:29 e-Cigarette/Vaping Use Never Used 11/02/24 11:29 PHQ-9: PHQ-9 Score PHQ-9: Total score 5 11/02/24 12:12 Depression Screening Interpretation: Positive Depression Screening Follow-up: Existing condition and Follow-up Visit Requested Thrive Assessment: Date of Thrive Assessment Date Thrive assessed 11/02/24 11/02/24 11:36 Currently or been in a relationship where the following occur: No concerns reported Const General: no acute distress and alert HENMT Ears: TM's normal bilaterally and EAC's normal Throat: Yes posterior oropharynx normal and Yes tonsils normal Neck Neck: Yes no lymphadenopathy and Yes supple Thyroid: Thyroid normal Resp Auscultation: clear to auscultation bilaterally, no rales and no wheezes Cardio Rate: regular rate Rhythm: regular rhythm Heart sounds: no murmurs GI Palpation (GI): Soft to palpation and nontender Auscultation: normal bowel sounds Skin Rashes: no rashes Extrem General: Yes no clubbing, cyanosis or edema Results AMB Hemoglobin A1c AMB Hemoglobin A1c 9.6 % Last Edit by CRISTI Mackay on 11/02/24 12:10 Results Reviewed Results Reviewed: Laboratory Last Values Hgb A1c (Clinic) 9.6 % (4.0-6.0) H 11/02/24 12:05 Coding Level of Care Code Est Pt Level 4 (69203) Diagnoses Preoperative examination Z01.818 Age-related cataract of both eyes, unspecified age-related cataract type H25.9 Cataract type: age-related Age-related cataract type: unspecified Uncontrolled type 2 diabetes mellitus with hyperglycemia E11.65 Diabetes mellitus type: type 2 Pure hypercholesterolemia E78.00 Vitamin D deficiency E55.9 Hearing loss, unspecified hearing loss type, unspecified laterality H91.90 Hearing loss type: unspecified Laterality: unspecified laterality Smoker F17.200 Additional Codes PHQ-9 - 83938 - PHQ-9 Billing: Yes ([id number]) Assessment & Plan Assessment & Plan (1) Preoperative examination: Code(s): Z01.818 - Encounter for other preprocedural examination Category: Medical Plan: Patient presents with acceptable risks for planned low cardiac risk procedure (2) Cataracts, bilateral: Code(s): H26.9 - Unspecified cataract Category: Medical Qualifiers: Cataract type: age-related Age-related cataract type: unspecified Qualified Code(s): H25.9 - Unspecified age-related cataract Plan: She is scheduled for cataract extraction/phacoemusification with IOL under MAC of the right eye on 11/12/2024, followed by the same procedure on the left eye 2 weeks later on 11/24/[address] Alvin Tanner (3) Uncontrolled diabetes mellitus with hyperglycemia: Code(s): E11.65 - Type 2 diabetes mellitus with hyperglycemia Category: Medical Qualifiers: Diabetes mellitus type: type 2 Qualified Code(s): E11.65 - Type 2 diabetes mellitus with hyperglycemia Plan: Her in-office HgbA1c today is at 9.6% (HgbA1c was at 13.3% just a couple of months ago in August 2024) - goal is at least <7.0% Reinforced diabetic diet Continue Lantus 10 units Q HS, and Trulicity 1.5 mg SQ once a week Follow up with endocrinology, mason helper and diabetic coordinator/educator as scheduled (4) Pure hypercholesterolemia: Code(s): E78.00 - Pure hypercholesterolemia, unspecified Category: Medical Plan: Reinforced low cholesterol diet Continue Atorvastatin 20 mg QD Will recheck her labs and fasting lipids as scheduled in a couple of months for follow up (5) Vitamin D deficiency: Code(s): E55.9 - Vitamin D deficiency, unspecified Category: Medical Plan: Continue Vitamin D3 2000 units QD (6) Hearing loss: Code(s): H91.90 - Unspecified hearing loss, unspecified ear Category: Medical Qualifiers: Hearing loss type: unspecified Laterality: unspecified laterality Qualified Code(s): H91.90 - Unspecified hearing loss, unspecified ear Plan: Per request, will refer her for hearing evaluation (7) Smoker: Code(s): F17.200 - Nicotine dependence, unspecified, uncomplicated Category: Social Hx Plan: Patient is again counseled on complete smoking cessation Plan Patient is currently NOT MEDICALLY OPTIMIZED for surgery, as her diabetes is still not controlled well enough for her to be cleared at this time - her HgbA1c still at 9.6% when checked in the office today Patient has been advised, however, that she should be able to proceed with her eye surgery in a couple of months if she continues on her current trend as her HgbA1c has improved significantly by almost 4% in just over 2 months Patient is presently NOT yet MEDICALLY OPTIMIZED, and is therefore NOT CLEARED FOR SURGERY at this time Follow-up as scheduled in December 2024 Orders: Orders AMB Hemoglobin A1c 11/02/24 E11.42 - Type 2 diabetes mellitus with diabetic polyneuropathy, E11.9 - Type 2 diabetes mellitus without complications Referrals Speech and Hearing Referral H91.90 - Unspecified hearing loss, unspecified ear
[2024-11-02 11:24] VITALS: BP 126/78; PULSE 101; O2SAT 97; BMI 21.8
--- OUTSIDE RECORDS SUMMARY | 2024-11-02 12:36 | XMS_ITS | Continuity of Care Document ---
Author Organization [facility] [address] [place] [address] Phone [phone] Care Team Providers Care Neck Fitter Name Role Phone Pascual King Care Team Information Truck Engine Technician [phone] Problems Active Problems Provider Date Type 2 [...]
== END 2024-11-02 12:16 | disposition home or self-care (01) ==
PROVIDERS: PCP Internal Medicine; Visit Provider Internal Medicine
DX: E11.42 Type 2 diabetes mellitus with diabetic polyneuropathy (principal)

== ENCOUNTER → 2024-11-02 11:12 | Outpatient (BNVA) | payer OTHER, SELFPAY | PROVIDERS: PCP Internal Medicine; Visit Provider Internal Medicine | DX: Z01.818 Encounter for other preprocedural examination (principal); E11.65 Type 2 diabetes mellitus with hyperglycemia; E11.42 Type 2 diabetes mellitus with diabetic polyneuropathy; H25.9 Unspecified age-related cataract; E78.00 Pure hypercholesterolemia, unspecified; E55.9 Vitamin D deficiency, unspecified; H91.90 Unspecified hearing loss, unspecified ear; F17.210 Nicotine dependence, cigarettes, uncomplicated | CPT/HCPCS: 83036; 96127; 99212 ==

== ENCOUNTER → 2024-11-03 10:30 | Outpatient (BNV) | payer OTHER, SELFPAY | PROVIDERS: PCP Internal Medicine; Visit Provider Radiology Body Imaging | DX: Z12.31 Encounter for screening mammogram for malignant neoplasm of breast (principal) | CPT/HCPCS: 77063; 77067 ==

== ENCOUNTER 2024-11-03 10:48 | Outpatient (REF) | payer OTHER, SELFPAY ==
--- OUTSIDE RECORDS SUMMARY | 2024-11-03 11:40 | XMS_ITS | Continuity of Care Document ---
Author Organization [facility] [address] [place] [address] Phone [phone] Care Team Providers Care Presiding Steward Name Role Phone Pascual King Care Team Information Slasher Hand [phone] Problems Active Problems Provider Date Type 2 [...]
== END 2024-11-03 10:49 | disposition home or self-care (01) ==
LOC: HO.MAMMO 10:48
PROVIDERS: PCP Internal Medicine; Visit Provider Internal Medicine
DX: Z12.31 Encounter for screening mammogram for malignant neoplasm of breast (principal)
CPT/HCPCS: 77063; 77067

== ENCOUNTER 2024-11-05 13:01 | Outpatient (AMB) | payer OTHER, SELFPAY ==
--- NOTE | 2024-11-05 13:13 | MHC.OFFVIS ---
Vital Signs 11/05/24 13:16 Height 5 ft 4 in Weight 129 lb 13.636 oz BMI 22.3 BP 112/74 Blood Pressure Location Rt brachial Position Sitting Pulse 104 H Pulse Source Pulse Oximeter Pulse Oximetry (%) 97 Oxygen Delivery Method Room Air Intake Visit Reasons: T2DM Intake Note: Patient present today for Type 2 Diabetes Mellitus. Patient states she has withheld injecting the Lantus for 1 week due to having hypoglycemia. She is currently only injecting the Trulicity 1.5 mg weekly. Last Diabetic eye exam: 09/2024 Last Podiatry Visit: Doesn't have one Random Glucose: 161 mg/dl HgA1C: 9.6% 11/02/2024 Mitigation Supervisor Required: Yes Mitigation Supervisor Language: Director Of Managed Care Services: Mitigation Supervisor Present [facility]igation [facility] Information Interpreted: non-clinical & clinical Accompanied by: Self / Same As Patient Allergies metformin Adverse Reaction (Intermediate, Verified 11/05/24 13:18) Abdominal Pain HPI Comments Details: The patient is a 69-year-old female with a past medical history of type 2 diabetes presenting for diabetes. Medical history: htn, hyperlipidemia, HOCM. Pt last saw Dr. Chance on 01/22/2024 Bennett murphy prescribed medications: Taking trulicity 1.5mg weekly and Lantus 10 units not taking Azeb download shows she is using the sensor 93% of the time. Average glucose is 129 with G mi of 6.4% and variability 21.4%. 93% in target range with 7% hyperglycemia and no hypoglycemia Micro/macrovascular complications: neuropathy Diet: Fish meat veg at meals. Snack on sugary foods at night-but improving Last saw optho: No hypoglycemia 1 bother and son with Type 2 DM [facility] Medical History (Updated 11/03/24 @ 04:59 by Pascual King MD) Cataracts, bilateral Hyperlipidemia associated with type 2 diabetes mellitus Long-term insulin use Vitamin D deficiency Smoker Pure hypercholesterolemia Diabetes mellitus Nephrolithiasis AVNRT (AV louisa re-entry tachycardia) Valvular heart disease Essential hypertension Hyperlipidemia LDL goal <70 Type 2 diabetes mellitus with diabetic polyneuropathy Surgical History Hx of hemorrhoidectomy Status post catheter ablation of slow pathway (~04/23/13) S/P HANNY-BSO (total abdominal hysterectomy and bilateral salpingo-oophorectomy) History of ectopic History of section Family History Father Prostate cancer Mother Natural Father FH: prostate cancer Mother Alive and well Social History Household Members: Children Household Members Other:: son Housing: House Alcohol intake: never Patient Tobacco Use Status: Current everyday Tobacco user Tobacco use type: Cigarette Cigarette Packs Per Day: 1 Cigarettes Per Day: 20 e-Cigarette/Vaping Use: Never Used Second Hand Smoke Exposure: Yes service: No Current occupational status: retired Cognitive needs: No Hearing needs: No Vision needs: Yes (Glasses) Physical Exam Vital Signs: Last Vital Signs Pulse 104 H 11/05/24 13:16 BP 112/74 11/05/24 13:16 Pulse Ox 97 11/05/24 13:16 Oxygen Delivery Method Room Air 11/05/24 13:16 BMI result Body Mass Index 22.3 Absence of Cushingoid features. Absence of acromegalic features. Neck exam reveals nl size thyroid about 15 gms. No thyroid nodules palpable. No carotid bruits present. Lungs CTA. Heart S1 S2, Reg R/R. No M/R/ G. Skin exam reveals absence of vitiligo or acanthosis nigricans. Abdominal exam reveals Soft NT/ND with NA BS. No organomegaly present. Neck Other: . Extrem Other: Visual exam of foot performed. No ulcerations or open lesions. No onchomycosis, no callouses.Pulses 2 + distally Sensation intact to monofilament exam. Vibratory sensation sensed isdecreased with 128 Hz tuning fork Results Reviewed Results Reviewed: Laboratory Last Values Glucose (Clinic) 161 mg/dL (60-115) H 11/05/24 13:23 Assessment & Plan Assessment & Plan (1) Uncontrolled diabetes mellitus with hyperglycemia: Code(s): E11.65 - Type 2 diabetes mellitus with hyperglycemia Category: Medical Qualifiers: Diabetes mellitus type: type 2 Qualified Code(s): E11.65 - Type 2 diabetes mellitus with hyperglycemia Plan: 69-year-old female with a history of type 2 diabetes with poor glycemic control and known microvascular complications namely neuropathy . The plan is to continue the current regimen (2) Hyperlipidemia LDL goal <70: Code(s): E78.5 - Hyperlipidemia, unspecified Category: Medical Plan: Will have restart atorvastatin 20 mg q.d. and recheck lipid profile in 4 weeks. Stressed the patient compliance with the atorvastatin Orders: Orders Lipid Panel 2 Months E78.5 - Hyperlipidemia, unspecified Coding Level of Care Code Est Pt Level 4 (86693) Diagnoses Uncontrolled type 2 diabetes mellitus with hyperglycemia E11.65 Diabetes mellitus type: type 2 Hyperlipidemia LDL goal <70 E78.5
[2024-11-05 13:16] VITALS: BP 112/74; PULSE 104; O2SAT 97; BMI 22.3
[2024-11-05 13:29] LABS: Glucose, Whole Blood 161 mg/dL (60-115)
--- OUTSIDE RECORDS SUMMARY | 2024-11-05 13:38 | XMS_ITS | Continuity of Care Document ---
Author Organization [facility] [address] [place] [address] Phone [phone] Care Team Providers Care Housekeeping Supervisor Hotel Name Role Phone Pascual King Care Team Information Electric Sealing Machine Operator [phone] Problems Active Problems Provider Date Type 2 [...]
== END 2024-11-05 13:53 | disposition home or self-care (01) ==
LOC: HO.ENCR 13:01
PROVIDERS: PCP Internal Medicine; Visit Provider Internal Medicine Endocrinology, Diabetes & Metabolism
DX: E11.65 Type 2 diabetes mellitus with hyperglycemia (principal); E78.5 Hyperlipidemia, unspecified
CPT/HCPCS: 99214

== ENCOUNTER → 2024-11-05 13:01 | Outpatient (BNVA) | payer OTHER, SELFPAY | PROVIDERS: PCP Internal Medicine; Visit Provider Internal Medicine Endocrinology, Diabetes & Metabolism | DX: E11.65 Type 2 diabetes mellitus with hyperglycemia (principal); E78.5 Hyperlipidemia, unspecified | CPT/HCPCS: 82947; 99212 ==

== ENCOUNTER 2024-11-11 13:12 | Outpatient (AMB) | payer OTHER, SELFPAY ==
[2024-11-11 13:31] VITALS: BMI 22.2
--- NOTE | 2024-11-11 13:31 | A.OFFVIS_ITS ---
VS Expanded 11/11/24 13:31 11/11/24 14:08 Height 5 ft 4 in 5 ft 4 in Weight 129 lb 10.109 oz 130 lb BMI 22.2 22.3 Intake Visit Reasons: Type 2 diabetes mellitus with hyperglycemia Allergies metformin Adverse Reaction (Intermediate, Verified 11/05/24 13:18) Abdominal Pain Nutrition Presentation Details: Pt presents for MNT f/u for T2DM Pt reports working on choosing beverages with no sugar, paying more attention to the glucose level and working on choosing balanced meals lower in carbohydrates Pt reports working on having small meals to prevent spikes in blood glucose and describes different meal preparation and portions izes. Per gluc sensor , for the past 2 weeks BG averages 135 mg/dl, with 92 % within limits and 8 % above 180 mg/dl, pt reports doing well and no concerns expressed, denies GI concerns BS Monitoring Most Recent Diabetes Results: Cholesterol, (<200) 203 mg/dL H 10/30/24 HDL Cholesterol, (>40) 42 mg/dL 10/30/24 Triglycerides, (<150) 206 mg/dL H 10/30/24 LXL-Seaxfcy-So.Jeor Equation Height: 5 ft 4 in Weight: 130 lb Resting Metabolic Rate: 1094.76 Calculated Activity Level: Sedentary Calories Needed to Maintain Weight: 1313.71 [facility] Medical History (Updated 11/03/24 @ 04:59 by Pascual King MD) Cataracts, bilateral Hyperlipidemia associated with type 2 diabetes mellitus Long-term insulin use Vitamin D deficiency Smoker Pure hypercholesterolemia Diabetes mellitus Nephrolithiasis AVNRT (AV louisa re-entry tachycardia) Valvular heart disease Essential hypertension Hyperlipidemia LDL goal <70 Type 2 diabetes mellitus with diabetic polyneuropathy Surgical History Hx of hemorrhoidectomy Status post catheter ablation of slow pathway (~07/01/12) S/P HANNY-BSO (total abdominal hysterectomy and bilateral salpingo-oophorectomy) History of ectopic History of section Family History Father Prostate cancer Mother Natural Father FH: prostate cancer Mother Alive and well Social History Household Members: Children Household Members Other:: son Housing: House Alcohol intake: never Patient Tobacco Use Status: Current everyday Tobacco user Tobacco use type: Cigarette Cigarette Packs Per Day: 1 Cigarettes Per Day: 20 e-Cigarette/Vaping Use: Never Used Second Hand Smoke Exposure: Yes service: No Current occupational status: retired Cognitive needs: No Hearing needs: No Vision needs: Yes (Glasses) Assessment & Plan Assessment & Plan (1) Type 2 diabetes mellitus with diabetic polyneuropathy: Code(s): E11.42 - Type 2 diabetes mellitus with diabetic polyneuropathy Category: Medical Qualifiers: Diabetes mellitus terminal makeup operator insulin use: without fpc use Qualified Code(s): E11.42 - Type 2 diabetes mellitus with diabetic polyneuropathy Plan: Wt: 59 Kg ( 12/03 ) Est kcal needs as per MSJ: 1500 (40% carb, 30% protein/fat) Est fluid needs as per 25-30 ml/d: 1800 Est prot per day as per 1 g/kg bw: 60 Recommend fiber intake : 8-10 g per day and gradually increase to 25-28 g per day for women and 35-38 g for men or as tolerated Recommend sodium intake per day : less than 2000 mg Educated patient on: ( R = reviewed V = verbalizes understanding N/R = needs review N/A = not applicable * Food sources of carbohydrate, adequate serving sizes and its role in various health conditions: R V * Differences between complex carbohydrates a simple carbohydrates, role of fiber in diet: R v * Lean protein sources of foods: R V * Differences between types of fats and role in diet (mono on saturated fat fatty acids, saturated fatty acids, trans fats): R V * Food sources of sodium in salt and healthy modifications for heart health in kidney health: R V * Vitamins and minerals: R V -reports taking a daily mvi * Healthy plate method concept: R V * Physical activity: Benefits a precaution: R V * Hypoglycemia protocol (rule of 15): R V * Dietary prevention of Hyperglycemia: R V Patient Instructions: Keep hydrated by having water with meals/snack follow healthy plate method, 30-45 g carb per meal and 15-20 g as snack, working on combining in the meals and choosing fiber rich foods caution with fried/prefried food items due to high content of fat, choose baked /broiled/steamed foods instead, working on reducing fat (trans fat and saturated fats) Coding Level of Care Code Nutr Indiv Subseq (42975) Diagnoses Type 2 diabetes mellitus with diabetic polyneuropathy, without long-term current use of insulin E11.42 Diabetes mellitus terminal makeup operator insulin use: without fpc use Time Spent (min) 30
[2024-11-11 14:08] VITALS: BMI 22.3
--- OUTSIDE RECORDS SUMMARY | 2024-11-11 15:32 | XMS_ITS | Continuity of Care Document ---
Author Organization [facility] [address] [place] [address] Phone [phone] Care Team Providers Care Leather Lacer Name Role Phone Pascual King Care Team Information Air Valve Mechanic [phone] Problems Active Problems Provider Date Type 2 [...]
== END 2024-11-11 14:18 | disposition home or self-care (01) ==
LOC: HO.ENCR 13:13
PROVIDERS: PCP Internal Medicine; Visit Provider Dietitian, Registered
DX: E11.42 Type 2 diabetes mellitus with diabetic polyneuropathy (principal)

== ENCOUNTER → 2024-11-11 13:12 | Outpatient (BNVA) | payer OTHER, SELFPAY | PROVIDERS: PCP Internal Medicine; Visit Provider Dietitian, Registered | DX: E11.42 Type 2 diabetes mellitus with diabetic polyneuropathy (principal) | CPT/HCPCS: 97803 ==

== ENCOUNTER 2024-11-30 12:23 | Outpatient (REF) | payer OTHER, SELFPAY ==
--- NOTE | ~2024-11-30 | US_ITS ---
EXAMINATION(S): 1. MM DIAGNOSTIC DIGITAL BREAST TOMOSYNTHESIS, RIGHT 2. Targeted ultrasound of the right breast CLINICAL INFORMATION: Callback from screening for right breast focal asymmetry in the upper outer quadrant. COMPARISON: Comparison made to multiple prior, most recent November 03, 2024, and most remote September 21, 2020. TECHNIQUE: Digital breast tomosynthesis is performed in full field ML 90 degrees along with computer-aided detection (CAD). Synthesized 2D images are generated from the tomosynthesis. Spot compression tomosynthesis were obtained. FINDINGS: BREAST COMPOSITION: There are scattered areas of fibroglandular density (ACR BI-RADS breast composition Category b). RIGHT BREAST: Previously suggested focal asymmetry in the upper outer quadrant middle depth partially effaces but persists with spot compression. Targeted ultrasound of the right breast was performed at the location of the mammographic finding. The survey throughout the upper outer quadrant did not reveal suspicious sonographic correlate. Incidental note is made of a simple cyst at 11 o'clock position 7 cm from the nipple, measuring 0.4 x 0.2 x 0.3 cm. No abnormal vascularity demonstrated with color Doppler evaluation. US/US breast RT limited mamm only IMPRESSION: RIGHT BREAST: Focal asymmetry in the upper outer quadrant middle depth without suspicious sonographic correlate. Probably benign. A 6-month follow-up mammogram is recommended. ASSESSMENT: BI-RADS 3 - Probably benign finding(s) - 6 month follow-up suggested RECOMMENDATION: 6 Month F/U Results were provided to the patient at time of visit by the technologist. This patient's information was entered into a reminder system with a target due date for their next mammogram. Electronically signed by: Farzaneh Allen MD 11/30/2024 02:24 PM EDT
--- OUTSIDE RECORDS SUMMARY | 2024-11-30 14:58 | XMS_ITS | Continuity of Care Document ---
Demographics Address [address] [place] [address] Home Phone [phone] Mobile Phone [phone] Preferred Language Unknown Marital Status Unknown Tenriism Affiliation Unknown
== END 2024-11-30 12:24 | disposition home or self-care (01) ==
LOC: HO.MAMMO 12:23
PROVIDERS: PCP Internal Medicine; Visit Provider Internal Medicine
DX: N64.89 Other specified disorders of breast (principal)
CPT/HCPCS: 76642; 77061; 77065

== ENCOUNTER → 2024-11-30 12:30 | Outpatient (BNV) | payer OTHER, SELFPAY | PROVIDERS: PCP Internal Medicine; Visit Provider Radiology Body Imaging | DX: N60.01 Solitary cyst of right breast (principal) | CPT/HCPCS: 76642; 77065; G0279 ==

== ENCOUNTER 2024-12-08 13:09 | Emergency (ER) | payer OTHER, SELFPAY ==
--- NOTE | ~2024-12-08 | CT_ITS ---
EXAMINATION: CT HEAD WITHOUT CONTRAST CLINICAL INFORMATION: Head trauma COMPARISON: None available. TECHNIQUE: Contiguous axial imaging was performed from the skull base to vertex without intravenous administration of contrast. This CT examination was performed using dose optimization techniques as appropriate, variously including the following: *Automated exposure control *Adjustment of mA and/or kV according to patient size (this includes techniques or standardized protocols for targeted exams where dose is matched to indication/reason for exam; i.e. extremities or head) *Use of iterative reconstruction technique b FINDINGS: There is no acute ischemic change. There is no intracranial hemorrhage. There is no mass-effect or midline shift. Basal cisterns and ventricles are within normal limits for age/cerebral volume. Orbits are symmetrical and unremarkable. Paranasal sinuses and mastoid air cells are pneumatized. There are no bony abnormalities. CT/CT head/brain wo IV con IMPRESSION: No acute intracranial abnormality. Electronically signed by: Thomas Borges MD 12/08/2024 03:03 PM EDT
--- NOTE | ~2024-12-08 | CT_ITS ---
EXAMINATION: CT CERVICAL SPINE WITHOUT CONTRAST CLINICAL INFORMATION: Head trauma COMPARISON: 12/01/2023 TECHNIQUE: Axial imaging was performed from the base of the skull through T2 without IV contrast. Coronal and sagittal reformatted images were generated from the original axial data set. ALARA: The examination used one or more of the following radiation dose reduction techniques: Automated exposure control, iterative reconstruction, and/or adjustment of mA and/or KV. FINDINGS: There is moderate reversal of the normal cervical lordosis. No fractures are identified. There is no prevertebral soft tissue swelling. Again seen are degenerative changes with disc space narrowing most pronounced at C5-6 and C6-7. There are endplate osteophytes and degenerative endplate irregularity. There are uncovertebral and minimal facet osteophytes. CT/CT cervical spine wo IV con IMPRESSION: There is mild reversal of cervical lordosis. This can be related to degenerative changes, positioning, muscle spasm, or posterior soft tissue injury. Degenerative changes are most advanced at C5-6 and C6-7. Electronically signed by: Thomas Borges MD 12/08/2024 03:06 PM EDT
--- NOTE | ~2024-12-08 | CT_ITS ---
EXAMINATION: CT FACIAL BONES WITHOUT CONTRAST CLINICAL INFORMATION: Head trauma, right orbital pain COMPARISON: None available. TECHNIQUE: Axial CT was performed through the facial bones without contrast. Coronal and sagittal reformatted images were generated from the original axial data set. ALARA: The examination used one or more of the following radiation dose reduction techniques: Automated exposure control, iterative reconstruction, and/or adjustment of mA and/or KV. FINDINGS: No fractures are identified. Paranasal sinuses are clear. There is an ectopic tooth in the posterior floor of the left maxillary sinus. CT/CT facial bones wo IV con IMPRESSION: No discrete facial bone fracture. Electronically signed by: Thomas Borges MD 12/08/2024 03:08 PM EDT
[2024-12-08 13:13] VITALS: BP 186/86; PULSE 110; RESP 18; TEMP 36.7; O2SAT 97; BMI 21.8
--- NOTE | 2024-12-08 13:18 | ED_ITS ---
HPI - General Adult General Chief complaint: Fall Stated complaint: fall from bed, facial inj Time Seen by Provider: 12/08/24 16:10 Source: patient Mode of arrival: ambulatory Limitations: no limitations History of Present Illness ED Provider: Dr. Marizol Reyna HPI narrative: Patient comes to the emergency room reporting falling of bed last night. Patient states that she hit her right cheek and has a small ecchymosis. Patient states that she had a little bit of a headache but now it has resolved. Patient states that she does not have any neck pain or back pain. Patient states that she did not lose consciousness. Otherwise feels well, denies nausea vomiting. Related Data Home Medications ?Medication ?Instructions ?Recorded ?Confirmed blood sugar diagnostic #10 ea 03/30/20 11/03/24 lancets 28 gauge (FreeStyle #100 ea 03/30/20 11/03/24 Lancets) Previous Rx's ?Medication ?Instructions ?Recorded blood-glucose meter (FreeStyle #1 ea 02/13/21 [place] Lite kit) blood sugar diagnostic (FreeStyle 1 strip miscellaneou s BID #100 08/07/23 Lite Strips) strips blood-glucose meter (FreeStyle #1 ea 08/07/23 Lite Meter kit) dulaglutide 1.5 mg/0.5 mL 1.5 mg (0.5 mL) subcut QWEEK #6 mL 01/31/24 subcutaneous pen injector (Trulicity) lancets 28 gauge (FreeStyle #100 ea 09/08/24 Lancets) atorvastatin 20 mg tablet 20 mg PO BEDTIME 90 days #90 tabs 09/17/24 blood-glucose sensor (FreeStyle #6 ea 09/30/24 Azeb 3 Plus Sensor device) insulin glargine 100 unit/mL (3 10 unit (0.1 mL) subcu t BEDTIME #3 09/30/24 mL) subcutaneous pen (Lantus mL Solostar U-100 Insulin) pen needle, diabetic 31 gauge x #50 ea 09/30/2407/24 (1st Tier Unifine Pentips) blood-glucose,bank messenger,cont #1 ea 12/03/24 (FreeStyle Azeb 3 [place]) acetaminophen 500 mg tablet 500 mg PO Q6H PRN fever or pain 12/08/24 #20 tabs ibuprofen 600 mg tablet 600 mg PO TID PRN fever or p ain 12/08/24 #20 tabs Allergies Allergy/AdvReac Type Severity Reaction Status Date / Time metformin AdvReac Intermediate Abdominal Verified 12/08/24 13:19 Pain Review of Systems Review of Systems: Constitutional : No Weight loss, No Fever, No Chills, No Night Sweats, No Fatigue, No Malaise ENT/Mouth : No Hearing loss, No Ear Pain, No Nasal Congestion, No Sinus Pain, No Hoarseness, No sore throat, No Rhinorrhea, No Swallowing Difficulty Eyes: No Eye Pain, No Swelling, No Redness, No Foreign Body, No Discharge, No Vision Changes Cardiovascular : No Chest Pain, No SOB, No Dyspnea on Exertion, No Orthopnea, No Edema, No Palpitations Respiratory : No Cough, No Sputum, No Wheezing, No Smoke Exposure, No Dyspnea Gastrointestinal : No Nausea, No Vomiting, No Diarrhea, No Constipation, No abdominal Pain, No Hematochezia, No Melena Genitourinary : no irregular bleeding, No Dysuria, No Urinary Frequency, No Hematuria, No Urinary Incontinence, No Urgency, No Flank Pain, No Urinary Flow Changes, No Hesitancy Musculoskeletal : No joint pain, No Myalgias, No Joint Swelling Skin : Complaining of a small ecchymosis on the right side of the face Neuro : No Weakness, No Numbness, No Paresthesias, No Loss of Consciousness, No Dizziness, No Headache Psych : No Anxiety/Panic, No Depression, No SI/HI/AH/VH, No Social Issues, Heme/Lymph: No Bruising, No Bleeding,No Lymphadenopathy Endocrine : No Polyuria, No Polydipsia, No Temperature Intolerance [facility] Past Medical History Medical History Cataracts, bilateral Hyperlipidemia associated with type 2 diabetes mellitus Long-term insulin use Vitamin D deficiency Smoker Pure hypercholesterolemia Diabetes mellitus Nephrolithiasis AVNRT (AV louisa re-entry tachycardia) Valvular heart disease Essential hypertension Hyperlipidemia LDL goal <70 Type 2 diabetes mellitus with diabetic polyneuropathy Surgical History Hx of hemorrhoidectomy Status post catheter ablation of slow pathway (~07/01/12) S/P HANNY-BSO (total abdominal hysterectomy and bilateral salpingo-oophorectomy) History of ectopic History of section Family History Family History Father Prostate cancer Mother Natural Father FH: prostate cancer Mother Alive and well Social History Social History Household Members: Children Household Members Other:: son Housing: House Alcohol intake: never Patient Tobacco Use Status: Current everyday Tobacco user Tobacco use type: Cigarette Cigarette Packs Per Day: 1 Cigarettes Per Day: 20 e-Cigarette/Vaping Use: Never Used Second Hand Smoke Exposure: Yes Advance Directives: No Advance Directives Information Provided: No service: No Current occupational status: retired Cognitive needs: No Hearing needs: No Vision needs: Yes (Glasses) Physical Exam ED Exam Exam: Appearance: Alert. Oriented X3. No acute distress. Eyes: Pupils equal, round and reactive to light. ENT: Pharynx normal. Neck: Normal inspection. Neck supple. No lymph nodes noted. No crepitus no palpable step-offs, normal flexion and extension and range of motion, painless neck movements CVS: Normal heart rate and rhythm. Pulses normal. Normal S1 and S2 Respiratory: No respiratory distress. Breath sounds normal. No Wheezing. No rales Abdomen: Soft and nontender. No rigidity. No distention. Skin: Skin warm and dry. Normal skin color. Normal skin turgor. Patient has a small hematoma on the right side of the face, no significant swelling, no erythema, no lacerations or abrasions. Extremities: No lower extremity edema. No Lacerations. No Rash Neuro: Oriented X 3. No motor deficit. No sensory deficit. Moving all extremities. No slurred speech. CN 2 through 12 grossly intact Psych: calm, cooperative, normal affect Vital Signs: Vital Signs - 24 hr 12/08/24 13:13 Temperature 98.0 F Pulse Rate 110 H Respiratory Rate 18 Blood Pressure 186/86 H Pulse Oximetry 97 Oxygen Delivery Method Room Air BMI result Body Mass Index 21.8 Course Course Course Narrative: This is an RME: Additional HPI, ROS, PE not included below will be deferred to primary provider. RME assessment and note performed by: Margoth Welsh PA-C This is a 69-year-old female, with a past medical history of diabetes, av louisa reentry tachycardia, valvular heart disease, hypertension, who presents emergency department after a fall out of bed this morning. She is not on anticoagulation. She is neurologically intact, mild tenderness palpation in the infraorbital space, no bony step-off or deformity. She is alert and oriented x4. Plan: CT head/facial bones Medical Decision Making Medical Decision Making MDM Narrative: CT scans of the head facial CT and cervical spine did not show any acute abnormality. Other than the localized ecchymosis and pain, patient has a complaints. Differential Diagnosis Differential Diagnoses: The differential diagnosis associated with the presentation includes (Contusion, concussion, ecchymosis, intracranial bleed, cervical spine injury) Independent Interpretation I performed an independent interpretation of an: CT Scan Radiology Impression Discussion of test interpretation with radiology: I have reviewed the r adiologist's reading. Radiologist Impression: No acute intracranial abnormality. No discrete facial bone fracture. There is mild reversal of cervical lordosis. This can be related to degenerative changes, positioning, muscle spasm, or posterior soft tissue injury. Degenerative changes are most advanced at C5-6 and C6-7. Discharge Plan Discharge Clinical Impression: Fall, Contusion of face Patient Disposition: Home, Self-Care Instructions: Fall Prevention for Older Adults (ED), Contusion in Adults (ED) Additional Instructions: Please follow-up with your primary care physician tomorrow. If you have any worsening or new symptoms, please return to the emergency room or call 911 Prescriptions: New acetaminophen 500 mg tablet 500 mg PO Q6H PRN (Reason: fever or pain) Qty: 20 0RF ibuprofen 600 mg tablet 600 mg PO TID PRN (Reason: fever or pain) Qty: 20 0RF No Action FreeStyle Lite Strips Strip 1 strip miscellaneous BID Qty: 100 6RF (DME) blood-glucose meter [FreeStyle Lite Meter] Kit See Rx Instructions .ROUTE .MEDSUPPLY Qty: 1 0RF Rx Instructions: As directed Trulicity 1.5 mg/0.5 mL pen injector 1.5 mg subcut QWEEK Qty: 6 3RF (DME) lancets [FreeStyle Lancets] 28 gauge misc See Rx Instructions .ROUTE .MEDSUPPLY Qty: 100 12RF Rx Instructions: As directed twice a day (DME) FreeStyle Azeb 3 Plus Sensor Device See Rx Instructions .ROUTE .MEDSUPPLY Qty: 6 4RF Rx Instructions: As directed every 15 days (DME) FreeStyle Azeb 3 [place] Misc See Rx Instructions .Route Qty: 1 0RF Rx Instructions: As directed (DME) blood-glucose meter [FreeStyle [place] Lite] Kit See Rx Instructions .Route Qty: 1 0RF Rx Instructions: As directed (DME) FreeStyle Lite Strips Strip See Rx Instructions Not Applicable TID Qty: 10 Rx Instructions: As directed (DME) lancets [FreeStyle Lancets] 28 gauge misc See Rx Instructions .ROUTE .MEDSUPPLY Qty: 100 Rx Instructions: As directed (DME) pen needle, diabetic [1st Tier Unifine Pentips] 31 gauge x 5/16 needle See Rx Instructions .Route Qty: 50 1RF Rx Instructions: As directed to inject insulin once a day insulin glargine [Lantus Solostar U-100 Insulin] 100 unit/mL (3 mL) insulin pen 10 unit subcut BEDTIME Qty: 3 1RF atorvastatin 20 mg tablet 20 mg PO BEDTIME 90 Days Qty: 90 0RF Print Language: [place]
--- NOTE | 2024-12-08 18:01 | PC.NURSE ---
THIS PATIENT WAS SEEN AND DISCHARGED BY THE PROVIDER
== END 2024-12-08 17:35 | disposition home or self-care (01) ==
PROVIDERS: Emergency Provider Emergency Medicine; PCP Internal Medicine
DX: S00.83XA Contusion of other part of head, initial encounter (principal); W06.XXXA Fall from bed, initial encounter; Y93.9 Activity, unspecified; Y92.9 Unspecified place or not applicable; H57.11 Ocular pain, right eye; E11.9 Type 2 diabetes mellitus without complications; E78.5 Hyperlipidemia, unspecified; F17.200 Nicotine dependence, unspecified, uncomplicated; Z79.4 Long term (current) use of insulin; Z71.6 Tobacco abuse counseling
CPT/HCPCS: 70450; 70486; 72125; 99281; 99284

== ENCOUNTER → 2024-12-08 13:20 | Outpatient (BNV) | payer OTHER, SELFPAY | PROVIDERS: PCP Internal Medicine; Visit Provider Radiology Diagnostic Radiology | DX: M50.322 Other cervical disc degeneration at C5-C6 level (principal); M50.323 Other cervical disc degeneration at C6-C7 level; S09.90XA Unspecified injury of head, initial encounter; W19.XXXA Unspecified fall, initial encounter | CPT/HCPCS: 70450; 70486; 72125 ==

== ENCOUNTER 2024-12-31 10:44 | Outpatient (REF) | payer OTHER, SELFPAY ==
[2024-12-31 11:12] LABS: MANUAL DIFF FLAG NO
[2024-12-31 11:59] LABS: Appearance Urine Clear; Glucose Urine UA 500 mg/dL (Negative); PH 6.5 (5.0-9.0); Specific Gravity - Urine 1.020 (1.005-1.025)
[2024-12-31 11:59] LABS: Hematocrit 40.3 % (37.0-47.0); Hemoglobin 13.1 g/dl (12.0-16.0); Imm Gran Abs Auto 0.02 X10*3/uL (0.00-0.03); Imm Gran Pct Auto 0.3 % (0.0-0.4); Lymphocytes Absolute Auto 2.0 X10*3/uL (1.2-4.9); Mean Corpuscular HGB Conc 32.5 g/dl (31.0-35.0); Mean Corpuscular Hemoglobin 28.7 pg (27.0-33.0); Mean Corpuscular Volume 88.4 fL (80.0-98.0); NRBC Abs Auto 0.000 X10*3/uL (0.0-0.012); NRBC Pct Auto 0.0 /100WBC (0.0-0.2); Platelet Count 195 X10*3/uL (160-400); Red Blood Count 4.56 X10*6/uL (4.20-5.50); White Blood Count 7.1 X10*3/uL (4.8-10.8)
[2024-12-31 12:55] LABS: Microalbum/Creatinine Ratio Ur 23.0 ug/mg cr (<30)
== END 2024-12-31 10:45 | disposition home or self-care (01) ==
LOC: HO.LAB 10:44
PROVIDERS: PCP Internal Medicine; Visit Provider Internal Medicine
DX: E11.9 Type 2 diabetes mellitus without complications (principal); D64.9 Anemia, unspecified; R30.0 Dysuria
CPT/HCPCS: 36415; 80053; 80061; 81003; 82043; 82306; 82570; 83036; 84443; 85025

== ENCOUNTER 2025-01-01 10:57 | Outpatient (REF) | payer OTHER, SELFPAY ==
[2025-01-01 12:44] LABS: Alanine Aminotransferase 16 U/L (0-31); Albumin Level 4.6 g/dL (3.5-5.0); Alkaline Phosphatase 122 U/L (39-117); Anion Gap 10 (12-20); Aspartate Amino Transferase 19 U/L (5-31); Blood Urea Nitrogen 12 mg/dL (9-16); Calcium 9.3 mg/dL (8.4-10.2); Carbon Dioxide 30 mmol/L (22-29); Chloride 104 mmol/L (96-108); Cholesterol 234 mg/dL (<200); Estimated Glomerular Filt Rate > 60; HDL Cholesterol 51 mg/dL (>40); Potassium 3.8 mmol/L (3.3-5.1); Sodium 140 mmol/L (135-145); Total Protein 7.4 g/dL (6.5-8.0); Triglycerides 101 mg/dL (<150)
--- OUTSIDE RECORDS SUMMARY | 2025-01-01 12:47 | XMS_ITS | Continuity of Care Document ---
Author Organization [facility] [address] [place] [address] Phone [phone] Care Team Providers Care Hide Handler Name Role Phone Pascual King Care Team Information Training Mgr [phone] Problems Active Problems Provider Date Type 2 [...]
== END 2025-01-01 10:58 | disposition home or self-care (01) ==
LOC: HO.LAB 10:57
PROVIDERS: PCP Internal Medicine; Visit Provider Internal Medicine
DX: E11.65 Type 2 diabetes mellitus with hyperglycemia (principal); E78.00 Pure hypercholesterolemia, unspecified; E55.9 Vitamin D deficiency, unspecified; H91.90 Unspecified hearing loss, unspecified ear; F17.210 Nicotine dependence, cigarettes, uncomplicated; D64.9 Anemia, unspecified; R30.0 Dysuria
CPT/HCPCS: 36415; 80053; 80061; 82306; 84443; 99212

== ENCOUNTER 2025-01-01 12:16 | Outpatient (AMB) | payer OTHER, SELFPAY ==
[2025-01-01 12:33] VITALS: BP 126/80; PULSE 95; O2SAT 97; BMI 23.2
--- NOTE | 2025-01-01 12:33 | A.OFFPC_ITS ---
Vital Signs 01/01/25 12:33 Height 5 ft 4 in Weight 135 lb BMI 23.2 BP 126/80 Blood Pressure Location Lt brachial Position Sitting Pulse 95 Pulse Source Pulse Oximeter Pulse Oximetry (%) 97 Oxygen Delivery Method Room Air Intake Visit Reasons: DM, hyperlipidemia Litigation Legal Secretary Required: No Accompanied by: Self / Same As Patient Allergies metformin Adverse Reaction (Intermediate, Verified 01/01/25 12:34) Abdominal Pain Tobacco use date assessed: 01/01/25 Fall risk assessment: 2 + Falls in past year Last assessed Fall Risk: 01/01/25 Dental Screening Dental Screen Date: 01/01/25 Did you have a dental visit in the last 12 months?: No Did you have a dental problem in the last 6 months where you did not have access to dental care?: No Was dental information given to patient?: Patient has dentist HPI DM, hyperlipidemia HPI Details Patient comes in today for her follow up visit States that she feels okay She denies any headaches or dizziness Denies any chest pains, no increased SOB No nausea/vomiting, no abdominal pain No change in bowel habits noted She had her follow up labs done yesterday - to discuss her results [facility] Medical History Cataracts, bilateral Hyperlipidemia associated with type 2 diabetes mellitus Long-term insulin use Vitamin D deficiency Smoker Pure hypercholesterolemia Diabetes mellitus Nephrolithiasis AVNRT (AV louisa re-entry tachycardia) Valvular heart disease Essential hypertension Hyperlipidemia LDL goal <70 Type 2 diabetes mellitus with diabetic polyneuropathy Surgical History Hx of hemorrhoidectomy Status post catheter ablation of slow pathway (~07/01/12) S/P HANNY-BSO (total abdominal hysterectomy and bilateral salpingo-oophorectomy) History of ectopic History of section Family History Father Prostate cancer Mother Natural Father FH: prostate cancer Mother Alive and well Social History Household Members: Children Household Members Other:: son Housing: House Alcohol intake: never Patient Tobacco Use Status: Current everyday Tobacco user Tobacco use type: Cigarette Cigarette Packs Per Day: 1 Cigarettes Per Day: 20 e-Cigarette/Vaping Use: Never Used Second Hand Smoke Exposure: Yes service: No Current occupational status: retired Current occupational exposures/hazards: No Cognitive needs: No Hearing needs: No Vision needs: Yes (Glasses) Questionnaire Thrive Questionnaire Date Thrive assessed: 09/30/24 I am a: Patient What is your living situation today?: I choose not to answer this question Within the past 12 months, did the food you bought not last and you didn't have the money to get more?: Sometimes True Within the past 12 months, did you worry whether your food would run out before you got money to buy more?: Sometimes True Do you have trouble paying for medicines?: No Do you have trouble getting transportation to medical appointments?: No Do you have trouble paying your heating and electricity bill?: Yes Do you have trouble taking care of your child, family member or friend?: No Do you have trouble with day-to-day activities such as bathing, preparing meals, shopping, managing finances, etc.?: I choose not to answer this question Are you currently unemployed and looking for a job?: No Are you interested in more education?: I choose not to answer this question THRIVE Score: 3 AUDIT C Alcohol Use Questionnaire (AUDIT-C) 1. How often do you have a drink containing alcohol?: Never 3. How often do you have six or more drinks on one occasion?: Never Total Score: 0 Score Reviewed/Action Taken: Yes BETTY-7 AMB Questionnaire BETTY-7 Date BETTY - 7 assessed: 11/02/24 Source: Developed by Drs. John Gregory, Gris Worthy, Elias Justice and colleagues, with an educational franco from [employer] Review of Systems Const Denies chills, Denies fatigue, Denies fever(s) and Denies headache(s) ENT Denies dysphagia, Denies dizziness, Denies otalgia, Denies headache(s), Reports hearing loss, Denies neck pain, Denies odynophagia and Denies sore throat Card Denies chest pain, Denies palpitations and Denies dyspnea Resp Denies cough and Denies dyspnea GI Denies abdominal pain, Denies constipation, Denies dysphagia, Denies heartburn, Denies diarrhea, Denies nausea, Denies odynophagia and Denies vomiting Denies difficulty voiding, Denies nocturia and Denies dysuria Musc Denies back pain and Denies neck pain Skin/Breast Denies rash Neuro Denies dizziness and Denies headache(s) Endo Denies fatigue and Denies palpitations Physical exam (Primary Care) Vital Signs: Last Vital Signs Pulse 95 01/01/25 12:33 BP 126/80 01/01/25 12:33 Pulse Ox 97 01/01/25 12:33 Oxygen Delivery Method Room Air 01/01/25 12:33 BMI result Body Mass Index 23.2 Tobacco/Smoking Status: Tobacco use Status Tobacco use date assessed 01/01/25 01/01/25 12:39 Patient Tobacco Use Status Current everyday Tobacco 01/01/25 12:39 Tobacco use type Cigarette 01/01/25 12:39 e-Cigarette/Vaping Use Never Used 01/01/25 12:39 Thrive Assessment: Date of Thrive Assessment Date Thrive assessed 09/30/24 01/01/25 12:39 Const General: no acute distress and alert HENMT Ears: TM's normal bilaterally and EAC's normal Throat: Yes posterior oropharynx normal and Yes tonsils normal Neck Neck: Yes no lymphadenopathy and Yes supple Thyroid: Thyroid normal Resp Auscultation: clear to auscultation bilaterally, no rales and no wheezes Cardio Rate: regular rate Rhythm: regular rhythm Heart sounds: no murmurs GI Palpation (GI): Soft to palpation and nontender Auscultation: normal bowel sounds Skin Rashes: no rashes Extrem General: Yes no clubbing, cyanosis or edema Results Reviewed Results Reviewed: Laboratory Tests 12/31/24 12/31/24 01/01/25 11:03 11:11 11:06 WBC 7.1 Hgb 13.1 Hct 40.3 Plt Count 195 Sodium 140 Potassium 3.8 Creatinine 0.65 Estimated GFR > 60 Fasting Glucose 247 H Hemoglobin A1c % 8.8 H Calcium 9.3 AST 19 ALT 16 Triglycerides 101 Cholesterol 234 H LDL Cholesterol, Calc 163 H HDL Cholesterol 51 25-OH Vitamin D Total 32.9 TSH 1.36 Ur Specific [place] 1.020 Urine Protein Negative Urine Glucose (UA) 500 H Urine Blood Negative Urine Nitrite Negative Ur Leukocyte Esterase Negative Microalb/Creat Ratio 23.0 Coding Level of Care Code Est Pt Level 4 (33875) Diagnoses Uncontrolled type 2 diabetes mellitus with hyperglycemia E11.65 Diabetes mellitus type: type 2 Pure hypercholesterolemia E78.00 Vitamin D deficiency E55.9 Hearing loss, unspecified hearing loss type, unspecified laterality H91.90 Hearing loss type: unspecified Laterality: unspecified laterality Smoker F17.200 Assessment & Plan Assessment & Plan (1) Uncontrolled diabetes mellitus with hyperglycemia: Code(s): E11.65 - Type 2 diabetes mellitus with hyperglycemia Category: Medical Qualifiers: Diabetes mellitus type: type 2 Qualified Code(s): E11.65 - Type 2 diabetes mellitus with hyperglycemia Plan: Her HgbA1c was at 8.8% on her labs done yesterday (her in-office HgbA1c was previously at 9.6% a few months ago and HgbA1c was at 13.3% back in August 2024) - goal is at least <7.0% Reinforced diabetic diet Continue Lantus 10 units Q HS, and Trulicity 1.5 mg SQ once a week - patient does not want to her her dose increased as she states that her blood sugar dropped to around 66 mg/dl at one point when her Lantus was increased earlier this year and she recalls feeling very dizzy and weak then States that she lives alone and cannot afford to have another hypoglycemic episode like this States that she would prefer to stay on the same dose and work on her diet Will have her recheck her HgbA1c in 1 month and if this drops to 8.2% or less, then we can go ahead and clear her for cataract surgery then Follow up with endocrinology, second cook and baker and diabetic coordinator/educator as scheduled (2) Pure hypercholesterolemia: Code(s): E78.00 - Pure hypercholesterolemia, unspecified Category: Medical Plan: Results of her labs done yesterday reviewed and discussed with patient - have cautioned her that her cholesterol levels have increased significantly from previous Patient admits that she often forgets to take her Atorvastatin Reinforced low cholesterol diet Have instructed patient to start taking her Atorvastatin 20 mg QD in the morning together with her other meds as she tends to forget to take it at night Will recheck her labs and fasting lipids in 3 months for follow up (3) Vitamin D deficiency: Code(s): E55.9 - Vitamin D deficiency, unspecified Category: Medical Plan: Continue Vitamin D3 2000 units QD (4) Hearing loss: Code(s): H91.90 - Unspecified hearing loss, unspecified ear Category: Medical Qualifiers: Hearing loss type: unspecified Laterality: unspecified laterality Qualified Code(s): H91.90 - Unspecified hearing loss, unspecified ear Plan: She has been referred for hearing evaluation (5) Smoker: Code(s): F17.200 - Nicotine dependence, unspecified, uncomplicated Category: Social Hx Plan: Patient is again counseled on complete smoking cessation Plan Follow up in 3 months Orders: Orders Complete Blood Count Auto Diff 3 Months D64.9 - Anemia, unspecified Comprehensive [place]. Panel Fast 3 Months E78.00 - Pure hypercholesterolemia, unspecified TSH reflex Free T4 3 Months E78.00 - Pure hypercholesterolemia, unspecified UA CC w/rflx Micro + Cult 3 Months R30.0 - Dysuria Hemoglobin A1c 1 Month E11.9 - Type 2 diabetes mellitus without complications Hemoglobin A1c 3 Months E11.9 - Type 2 diabetes mellitus without complications Lipid Panel 3 Months E78.00 - Pure hypercholesterolemia, unspecified Microalbumin, Random (w Creat) 3 Months E11.9 - Type 2 diabetes mellitus without complications Vitamin D 25-OH Total 3 Months E55.9 - Vitamin D deficiency, unspecified
== END 2025-01-01 13:19 | disposition home or self-care (01) ==
LOC: HO.HMCH 12:17
PROVIDERS: PCP Internal Medicine; Visit Provider Internal Medicine
DX: E11.65 Type 2 diabetes mellitus with hyperglycemia (principal); E78.00 Pure hypercholesterolemia, unspecified; E55.9 Vitamin D deficiency, unspecified; H91.90 Unspecified hearing loss, unspecified ear; F17.200 Nicotine dependence, unspecified, uncomplicated

== ENCOUNTER 2025-01-05 00:18 | Emergency (ER) | payer OTHER, SELFPAY ==
[2025-01-05] VITALS (7 sets, daily range): BP systolic 113–170; BP diastolic 71–98; PULSE 66–93; RESP 13–18; TEMP 36.2–36.6; O2SAT 98; BMI 22.7
--- NOTE | ~2025-01-05 | XR_ITS ---
CLINICAL HISTORY: cp sob 1 view chest x-ray Comparison: None provided Findings: Mild interstitial opacities nonspecific and may reflect pulmonary edema or pneumonitis. Mild emphysematous changes suggested. Mild cardiomegaly accentuated by AP technique. No pneumothorax or pleural effusion in this portable image. Degenerative changes include imaged AC joints. IMPRESSION: Mild opacities as can be seen with pneumonitis and/or pulmonary edema. This document has been electronically signed by: Keegan Driscoll MD on 01/05/2025 01:51:11
--- NOTE | 2025-01-05 00:19 | ECG_ITS ---
Test Reason : CHEST PAIN Blood Pressure : */* mmHG Vent. Rate : 94 BPM Atrial Rate : 94 BPM P-R Int : 150 ms QRS Dur : 88 ms QT Int : 352 ms P-R-T Axes : 70 50 91 degrees QTcB Int : 440 ms Normal sinus rhythm Possible Left atrial enlargement Nonspecific ST and T wave abnormality Abnormal ECG When compared with ECG of 30-Jun-2012 14:55, Rhythm change Referred By: Generic ED Physician Electronically Signed By: SELMA GEORGE
--- NOTE | 2025-01-05 00:30 | PC.NURSE ---
pt was taken from wr to ed6 after obtaining ekg, triage done at bedside with surgery consultant Santiago. pt reports was at her family members game and felt cp with inspiration/palpitations that did not resolve when she got home so she felt like she should come to the ED. she denies thinners. smokes daily, denies recent travel. pain does not radiate. charge lpn jeffrey at bedside to obtain iv. pt is axox4 speaking full clear sentences, resp even and unlabored. Primary RN aSchi aware.
--- OUTSIDE RECORDS SUMMARY | 2025-01-05 00:31 | XMS_ITS | Continuity of Care Document ---
Author Organization [facility] [address] [place] [address] Phone [phone] Care Team Providers Care Assembly Line Brazer Name Role Phone Pascual King Care Team Information Combination Presser [phone] Problems Active Problems Provider Date Type 2 [...]
[2025-01-05 00:58] LABS: Imm Gran Abs Auto 0.03 X10*3/uL (0.00-0.03); PLT CLUMP 1; SCAN SMEAR FLAG 1
[2025-01-05 01:00] LABS: Hematocrit 40.5 % (37.0-47.0); Hemoglobin 13.4 g/dl (12.0-16.0); Imm Gran Pct Auto 0.3 % (0.0-0.4); Lymphocytes Absolute Auto 2.9 X10*3/uL (1.2-4.9); MANUAL DIFF FLAG SCAN; Mean Corpuscular HGB Conc 33.1 g/dl (31.0-35.0); Mean Corpuscular Hemoglobin 28.9 pg (27.0-33.0); Mean Corpuscular Volume 87.5 fL (80.0-98.0); NRBC Abs Auto 0.030 X10*3/uL (0.0-0.012); NRBC Pct Auto 0.3 /100WBC (0.0-0.2); Red Blood Count 4.63 X10*6/uL (4.20-5.50)
[2025-01-05 01:02] LABS: White Blood Count 11.8 X10*3/uL (4.8-10.8)
[2025-01-05 01:06] LABS: Alanine Aminotransferase 14 U/L (0-31); Albumin Level 4.5 g/dL (3.5-5.0); Alkaline Phosphatase 135 U/L (39-117); Anion Gap 14 (12-20); Aspartate Amino Transferase 20 U/L (5-31); Blood Urea Nitrogen 13 mg/dL (9-16); Calcium 9.4 mg/dL (8.4-10.2); Carbon Dioxide 24 mmol/L (22-29); Chloride 104 mmol/L (96-108); Creatinine Clr Calc Pharmacy 63.5; Estimated Glomerular Filt Rate > 60; Potassium 4.1 mmol/L (3.3-5.1); Sodium 138 mmol/L (135-145); Total Protein 7.3 g/dL (6.5-8.0); Troponin-I High Sensitivity < 2.7 ng/L (<3.5-17.0)
[2025-01-05 01:22] LABS: Platelet Count 242 X10*3/uL (160-400)
--- NOTE | 2025-01-05 02:02 | ED.CHESTPAIN ---
HPI - Chest Pain General Chief Complaint: Chest Pain Stated Complaint: Chest Pain Time Seen by Provider: 01/05/25 02:01 Source: patient and science interpreter Mode of arrival: ambulatory Limitations: language barrier History of Present Illness ED Provider: Dr. Nunu Lewis HPI narrative: 70-year-old female with a history of hypertension, hyperlipidemia, diabetes, continued tobacco use, hypertrophic cardiomyopathy presenting with chest pain with inspiration associated with palpitations ongoing since about 9:00 p.m. this evening. Admits that she continues to smoke daily physical. Has been taking all of her medications at home however admits that her blood sugars are running high. Chest pain is worse on the right side of her chest. No improvement with Tylenol. Feels short of breath because she can not take a deep breath but denies cough, abdominal pain, nausea, vomiting, hematochezia or melena, lower extremity edema or pain. No recent travel. No known sick contacts. Related Data Home Medications ?Medication ?Instructions ?Recorded ?Confirmed blood sugar diagnostic #10 ea 03/30/20 11/03/24 lancets 28 gauge (FreeStyle #100 ea 03/30/20 11/03/24 Lancets) Previous Rx's ?Medication ?Instructions ?Recorded blood-glucose meter (FreeStyle #1 ea 02/13/21 Thompson Lite kit) blood sugar diagnostic (FreeStyle 1 strip miscellaneous BID #100 08/07/23 Lite Strips) strips blood-glucose meter (FreeStyle #1 ea 08/07/23 Lite Meter kit) dulaglutide 1.5 mg/0.5 mL 1.5 mg (0.5 mL) subcut QWEEK #6 mL 01/31/24 subcutaneous pen injector (Trulicity) lancets 28 gauge (FreeStyle #100 ea 09/08/24 Lancets) blood-glucose sensor (FreeStyle #6 ea 09/30/24 Azeb 3 Plus Sensor device) insulin glargine 100 unit/mL (3 10 unit (0.1 mL) subcut BEDTIME #3 09/30/24 mL) subcutaneous pen (Lantus mL Solostar U-100 Insulin) acetaminophen 500 mg tablet 500 mg PO Q6H PRN fever or pain 12/08/24 #20 tabs ibuprofen 600 mg tablet 600 mg PO TID PRN fever or pain 12/08/24 #20 tabs atorvastatin 20 mg tablet 20 mg PO BEDTIME #90 tabs 12/14/24 blood-glucose,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 [facility] Past Medical History Medical History Cataracts, bilateral Hyperlipidemia associated with type 2 diabetes mellitus Long-term insulin use Vitamin D deficiency Smoker Pure hypercholesterolemia Diabetes mellitus Nephrolithiasis AVNRT (AV louisa re-entry tachycardia) Valvular heart disease Essential hypertension Hyperlipidemia LDL goal <70 Type 2 diabetes mellitus with diabetic polyneuropathy Surgical History Hx of hemorrhoidectomy Status post catheter ablation of slow pathway (~07/01/12) S/P HANNY-BSO (total abdominal hysterectomy and bilateral salpingo-oophorectomy) History of ectopic History of section Family History Family History Father Prostate cancer Mother Natural Father FH: prostate cancer Mother Alive and well Social History Social History Household Members: Children Household Members Other:: son Housing: House Alcohol intake: never Patient Tobacco Use Status: Current everyday Tobacco user Tobacco use type: Cigarette Cigarette Packs Per Day: 1 Cigarettes Per Day: 20 e-Cigarette/Vaping Use: Never Used Second Hand Smoke Exposure: Yes service: No Current occupational status: retired Current occupational exposures/hazards: No Cognitive needs: No Hearing needs: No Vision needs: Yes (Glasses) Physical Exam Exam: Exam: GENERAL: Chronically ill-Appearing, conversant, no acute distress. SKIN: Normal skin color for ethnicity, warm, dry, no rashes noted. HEENT:? Normocephalic, atraumatic, no stridor, posterior oropharynx nonerythematous, dentition intact, EOMI. NECK: Soft, supple, full ROM, midline structures nontender, no step-offs, no deformities, no lymphadenopathy. CHEST: Heart regular rate and rhythm, no murmurs, symmetric chest rise and fall. PULMONARY: Clear to auscultation bilaterally, no labored breathing, no wheezes/rhales/rhonchi. ABDOMINAL: Soft, nondistended, nontender, positive bowel sounds in all quadrants. : Deferred. MUSCULOSKELETAL: Normal tone, full range of motion, no deformities, no peripheral edema. NEURO: Alert and oriented x3, CN II through XII intact, equal strength and sensation bilateral upper and lower extremities, no focal neurologic deficits.? PSYCHIATRIC: Normal affect, fluid speech, good eye contact and appropriate demeanor. Vital Signs: Vital Signs: Last Vital Signs Temp 97.2 F 01/05/25 08:35 Pulse 77 01/05/25 08:35 Resp 16 01/05/25 08:35 BP 118/98 H 01/05/25 08:35 Pulse Ox 98 01/05/25 08:35 O2 Del Method Room Air 01/05/25 08:35 BMI result Body Mass Index 22.7 Medications Administered Discontinued Medications Generic Name Dose Route Start Last Admin Trade Name Popq PRN Reason Stop Dose Admin Furosemide 20 mg 01/05/25 03:16 01/05/25 03:23 Furosemide 20 Mg Tablet PO 01/05/25 03:17 20 mg ONCE ONE Administration Protocol Medical Decision Making Medical Decision Making MDM Narrative: Patient presenting with chief complaint of heart palpitations. Differential diagnosis includes heart palpitations, electrolyte abnormality, arrhythmia, ACS, thyroid dysfunction, substance use including stimulants such as caffeine, amphetamines, drug toxicity, among many others. Clinical picture is consistent with a CHF exacerbation. She was given a dose of Lasix and has been diuresing. Oxygen levels are normal on room air. I feel she is stable for discharge and outpatient follow up with your medicare specialist. Using shared decision making, plan for discharge home to follow-up with primary care and/or specialist.? Patient understands and agrees with plan for discharge.? Discharged home in stable condition. Differential Diagnosis Differential Diagnoses: The differential diagnosis associated with the presentation includes (As above) Admission/Observation Consideration of admission/observation: Escalation of care including admission/observation considered Lab Data MDM Lab Attestation statement: I reviewed the patient's lab results. 01/05/25 00:39 01/05/25 00:39 Labs: Lab Results 01/05/25 01/05/25 Range/Units 00:39 03:13 WBC 11.8 H (4.8-10.8) X10*3/uL RBC 4.63 (4.20-5.50) X10*6/uL Hgb 13.4 (12.0-16.0) g/dl Hct 40.5 (37.0-47.0) % MCV 87.5 (80.0-98.0) fL MCH 28.9 (27.0-33.0) pg MCHC 33.1 (31.0-35.0) g/dl RDW 13.1 (11.0-16.0) % Plt Count 242 (160-400) X10*3/uL MPV 11.6 (9.4-12.3) fL Immature Gran % (Auto) 0.3 (0.0-0.4) % Neut % (Auto) 68.3 (45-73) % Lymph % (Auto) 24.5 (20-40) % [place] % (Auto) 5.5 (2-11) % Eos % (Auto) 1.0 (0-4) % Baso % (Auto) 0.4 (0-2) % Lymph # (Auto) 2.9 (1.2-4.9) X10*3/uL [place] # (Auto) 0.7 (0.1-1.2) X10*3/uL Eos # (Auto) 0.1 (0.0-0.4) X10*3/uL Baso # (Auto) 0.1 (0.0-0.2) X10*3/uL Abs Immat Gran (auto) 0.03 (0.00-0.03) X10*3/uL Absolute Neuts (auto) 8.0 (2.0-8.3) x10*3/uL Absolute Nucleated RBC 0.030 H (0.0-0.012) X10*3/uL Nucleated RBC % (auto) 0.3 H (0.0-0.2) /100WBC Smear Tech's Comments VERIFIED Sodium 138 (135-145) mmol/L Potassium 4.1 (3.3-5.1) mmol/L Chloride 104 (96-108) mmol/L Carbon Dioxide 24 (22-29) mmol/L Anion Gap 14 (12-20) BUN 13 (9-16) mg/dL Creatinine 0.72 (0.5-1.4) mg/dL Estim Creat Clear Calc 63.5 Estimated GFR > 60 Random Glucose 370 H* (60-115) mg/dL Calcium 9.4 (8.4-10.2) mg/dL Total Bilirubin 0.2 (0.0-1.0) mg/dL AST 20 (5-31) U/L ALT 14 (0-31) U/L Alkaline Phosphatase 135 H (39-117) U/L Troponin I High Sens < 2.7 < 2.7 (<3.5-17.0) ng/L NT-Pro-B Natriuret Pep 348.1 H (<300) pg/mL Total Protein 7.3 (6.5-8.0) g/dL Albumin 4.5 (3.5-5.0) g/dL Independent Interpretation I performed an independent interpretation of an: EKG Radiology Impression Discussion of test interpretation with radiology: I have reviewed the radiologist's reading. Radiologist Impression: 1 view chest x-ray Comparison: None provided Findings: Mild interstitial opacities nonspecific and may reflect pulmonary edema or pneumonitis. Mild emphysematous changes suggested. Mild cardiomegaly accentuated by AP technique. No pneumothorax or pleural effusion in this portable image. Degenerative changes include imaged AC joints. IMPRESSION: Mild opacities as can be seen with pneumonitis and/or pulmonary edema. External Record Review External record reviewed: Inpatient record Chronic Conditions Patient?s care impacted by: Diabetes, Hypertension and Other (cardiomyopathy) Discharge Plan Discharge Clinical Impression: Acute chest pain, Pulmonary edema, Poorly controlled diabetes mellitus Patient Disposition: Home, Self-Care Instructions: Pulmonary Edema (ED) Additional Instructions: Take the water pill (Lasix) for the next 5 days. Be sure to stay well hydrated even though you are taking a pill that makes you urinate a lot. Follow up with your primary care doctor as soon as possible. Your blood sugars are elevated however, UR not having any evidence of diabetic ketoacidosis. Return to the emergency department with any new or worsening symptoms including: Worsening shortness of breath or chest pain, fevers greater than 100?, green or bloody sputum production, any new symptom that concerns you. Call 911 with any medical emergency. Prescriptions: New furosemide [Lasix] 20 mg tablet 20 mg PO DAILY 5 Days Qty: 5 0RF No Action FreeStyle Lite Strips Strip 1 strip miscellaneous BID Qty: 100 6RF (DME) blood-glucose meter [FreeStyle Lite Meter] Kit See Rx Instructions .ROUTE .MEDSUPPLY Qty: 1 0RF Rx Instructions: As directed Trulicity 1.5 mg/0.5 mL pen injector 1.5 mg subcut QWEEK Qty: 6 3RF (DME) lancets [FreeStyle Lancets] 28 gauge misc See Rx Instructions .ROUTE .MEDSUPPLY Qty: 100 12RF Rx Instructions: As directed twice a day (DME) FreeStyle Azeb 3 Plus Sensor Device See Rx Instructions .ROUTE .MEDSUPPLY Qty: 6 4RF Rx Instructions: As directed every 15 days atorvastatin 20 mg tablet 20 mg PO BEDTIME Qty: 90 1RF (DME) FreeStyle Azeb 3 [place] Misc See Rx Instructions .Route Qty: 1 0RF Rx Instructions: As directed (DME) pen needle, diabetic 31 gauge x 5/16 needle See Rx Instructions .ROUTE .COMPLEX Qty: 100 5RF Dose Instruction: USE DIRECTED TO INJECT INSULIN ONCE A DAY Rx Instructions: USE DIRECTED TO INJECT INSULIN ONCE A DAY acetaminophen 500 mg tablet 500 mg PO Q6H PRN (Reason: fever or pain) Qty: 20 0RF ibuprofen 600 mg tablet 600 mg PO TID PRN (Reason: fever or pain) Qty: 20 0RF (DME) blood-glucose meter [FreeStyle Thompson Lite] Kit See Rx Instructions .Route Qty: 1 0RF Rx Instructions: As directed (DME) FreeStyle Lite Strips Strip See Rx Instructions Not Applicable TID Qty: 10 Rx Instructions: As directed (DME) lancets [FreeStyle Lancets] 28 gauge misc See Rx Instructions .ROUTE .MEDSUPPLY Qty: 100 Rx Instructions: As directed insulin glargine [Lantus Solostar U-100 Insulin] 100 unit/mL (3 mL) insulin pen 10 unit subcut BEDTIME Qty: 3 1RF Interventions: ED Discharge Assessment Last Done: 01/05/25 08:35 Discharge Date/Time: 01/05/25 08:37 Print Language: [place] Citizen
[2025-01-05 03:36] LABS: NT Pro B Type Natriuretic Pept 348.1 pg/mL (<300)
[2025-01-05 03:37] LABS: Troponin-I High Sensitivity < 2.7 ng/L (<3.5-17.0)
--- NOTE | 2025-01-05 07:30 | PC.NURSE ---
pt sleeping, woke to verbal stimulus, rr equal/non labored, lungs clear, side door worker intact sb 60s, call macdonald within reach, plan of care ongoing
== END 2025-01-05 08:37 | disposition home or self-care (01) ==
PROVIDERS: Emergency Provider Emergency Medicine; PCP Internal Medicine
DX: J81.1 Chronic pulmonary edema (principal); I42.8 Other cardiomyopathies; R07.9 Chest pain, unspecified; R06.02 Shortness of breath; R94.31 Abnormal electrocardiogram [ECG] [EKG]; I10 Essential (primary) hypertension; E78.5 Hyperlipidemia, unspecified; E11.9 Type 2 diabetes mellitus without complications; F17.200 Nicotine dependence, unspecified, uncomplicated; Z71.6 Tobacco abuse counseling
CPT/HCPCS: 36415; 71045; 80053; 83880; 84484; 85025; 93005; 99283; 99285

== ENCOUNTER → 2025-01-05 00:19 | Outpatient (BNV) | payer OTHER, SELFPAY | PROVIDERS: Emergency Provider Emergency Medicine; PCP Internal Medicine; Visit Provider Internal Medicine | DX: R94.31 Abnormal electrocardiogram [ECG] [EKG] (principal); R07.9 Chest pain, unspecified | CPT/HCPCS: 93010 ==

== ENCOUNTER → 2025-01-05 00:55 | Outpatient (BNV) | payer OTHER, SELFPAY | PROVIDERS: PCP Internal Medicine; Visit Provider Radiology Neuroradiology | DX: R07.9 Chest pain, unspecified (principal); R05.9 Cough, unspecified | CPT/HCPCS: 71045 ==

== ENCOUNTER 2025-01-13 14:39 | Outpatient (AMB) | payer OTHER, SELFPAY ==
--- NOTE | 2025-01-13 14:55 | A.OFFVIS_ITS ---
Intake Intake Visit Reasons: CGM needs to be switched to foreign languages professor Packager Required: Yes Packager Language: [place] Name: Chele Crockett Accompanied by: Self / Same As Patient Allergies metformin Adverse Reaction (Intermediate, Verified 01/05/25 00:36) Abdominal Pain HPI Comprehensive Diabetes Asmnt Most Recent Diabetes Results: Microalb/Creat Ratio, (<30) 23.0 ug/mg cr 12/31/24 Cholesterol, (<200) 234 mg/dL H 01/01/25 HDL Cholesterol, (>40) 51 mg/dL 01/01/25 Triglycerides, (<150) 101 mg/dL 01/01/25 Creatinine, (0.5-1.4) 0.72 mg/dL 01/05/25 BUN, (9-16) 13 mg/dL 01/05/25 Sodium, (135-145) 138 mmol/L 01/05/25 Potassium, (3.3-5.1) 4.1 mmol/L 01/05/25 Chloride, (96-108) 104 mmol/L 01/05/25 Carbon Dioxide, (22-29) 24 mmol/L 01/05/25 Calcium, (8.4-10.2) 9.4 mg/dL 01/05/25 AST, (5-31) 20 U/L 01/05/25 ALT, (0-31) 14 U/L 01/05/25 Total Protein, (6.5-8.0) 7.3 g/dL 01/05/25 Albumin, (3.5-5.0) 4.5 g/dL 01/05/25 [facility] Medical History Cataracts, bilateral Hyperlipidemia associated with type 2 diabetes mellitus Long-term insulin use Vitamin D deficiency Smoker Pure hypercholesterolemia Diabetes mellitus Nephrolithiasis AVNRT (AV louisa re-entry tachycardia) Valvular heart disease Essential hypertension Hyperlipidemia LDL goal <70 Type 2 diabetes mellitus with diabetic polyneuropathy Surgical History Hx of hemorrhoidectomy Status post catheter ablation of slow pathway (~07/01/12) S/P HANNY-BSO (total abdominal hysterectomy and bilateral salpingo-oophorectomy) History of ectopic History of section Family History Father Prostate cancer Mother Natural Father FH: prostate cancer Mother Alive and well Social History Household Members: Children Household Members Other:: son Housing: House Alcohol intake: never Patient Tobacco Use Status: Current everyday Tobacco user Tobacco use type: Cigarette Cigarette Packs Per Day: 1 Cigarettes Per Day: 20 e-Cigarette/Vaping Use: Never Used Second Hand Smoke Exposure: Yes service: No Current occupational status: retired Current occupational exposures/hazards: No Cognitive needs: No Hearing needs: No Vision needs: Yes (Glasses) Assessment & Plan Assessment & Plan (1) Diabetes type 2, controlled: Code(s): E11.9 - Type 2 diabetes mellitus without complications Qualifiers: Diabetes mellitus penitentiary insulin use: without penitentiary use Diabetes mellitus complication status: without complication Qualified Code(s): E11.9 - Type 2 diabetes mellitus without complications Plan: Patient at visit to set up an insert Azeb 3+ sensor with reader Patient had been cell phone but cell phone is no longer functioning so she is transitioning today to Azeb 3+ reader Instructed patient sensors water proof you can shower, or swim do not submerge sensor in water for over 30 minutes Is sensor falls off cannot put back in you need to replace sensor, customer service number given to patient for sensor replacement Sensor placed on the Left arm Patient left visit with sensor in warmup Patient also stated at visit that 1 of her sensors that she inserted did not work properly. Instructed patient to contact [facility] and ask for replacement sensor Patient agreed to call phone number provided Reviewed how to interpret trend arrows Discussed lag time between finger stick and sensor data.? Instructed patient the importance of having blood glucometer for backup testing if needed Reviewed delay of CGM from fingersticks Reminded Pt that if symptoms do not match sensor still needs to check fingersticks. Portions of this note were created using voice recognition software, please ex cuse any words or phrases that may have been misinterpreted. Coding Level of Care Code Est Pt Level 1 (06760) Diagnoses Controlled type 2 diabetes mellitus without complication, without long-term current use of insulin E11.9 Diabetes mellitus intermediate accountant insulin use: without penitentiary use Diabetes mellitus complication status: without complication
--- OUTSIDE RECORDS SUMMARY | 2025-01-13 17:49 | XMS_ITS | Continuity of Care Document ---
Author Organization [facility] [address] [place] [address] Phone [phone] Care Team Providers Care Correspondence Clerk Name Role Phone Pascual King Care Team Information Destination Sign Repairer [phone] Problems Active Problems Provider Date Type 2 diabetes mellitus Papito Niño M.D. Onset: 01/09/2023 Essential hypertension Papito Niño M.D. O nset: 01/09/2023 Hyperlipidemia Papito Nioñ M.D. Onset: 1 03/11/2022 Nephrosclerosis Papito Niño [...]
== END 2025-01-13 15:10 | disposition home or self-care (01) ==
PROVIDERS: PCP Internal Medicine; Visit Provider Registered Nurse Diabetes Educator
DX: E11.9 Type 2 diabetes mellitus without complications (principal)

== ENCOUNTER → 2025-01-13 14:39 | Outpatient (BNVA) | payer OTHER, SELFPAY | PROVIDERS: PCP Internal Medicine; Visit Provider Registered Nurse Diabetes Educator | DX: E11.9 Type 2 diabetes mellitus without complications (principal) | CPT/HCPCS: 99211 ==

== ENCOUNTER 2025-01-29 12:27 | Outpatient (REF) | payer OTHER, SELFPAY ==
[2025-01-29 12:43] LABS: MANUAL DIFF FLAG NO
--- OUTSIDE RECORDS SUMMARY | 2025-01-29 12:50 | XMS_ITS | Continuity of Care Document ---
Author Organization [facility] [address] [place] [address] Phone [phone] Care Team Providers Care Orthopaedic Nurse Name Role Phone Pascual King Care Team Information Computer Customer Support Specialist [phone] Problems Active Problems Provider Date Type 2 [...]
[2025-01-29 13:42] LABS: Hematocrit 40.3 % (37.0-47.0); Hemoglobin 13.5 g/dl (12.0-16.0); Imm Gran Abs Auto 0.02 X10*3/uL (0.00-0.03); Imm Gran Pct Auto 0.3 % (0.0-0.4); Lymphocytes Absolute Auto 2.0 X10*3/uL (1.2-4.9); Mean Corpuscular HGB Conc 33.5 g/dl (31.0-35.0); Mean Corpuscular Hemoglobin 29.5 pg (27.0-33.0); Mean Corpuscular Volume 88.2 fL (80.0-98.0); NRBC Abs Auto 0.000 X10*3/uL (0.0-0.012); NRBC Pct Auto 0.0 /100WBC (0.0-0.2); Platelet Count 239 X10*3/uL (160-400); Red Blood Count 4.57 X10*6/uL (4.20-5.50); White Blood Count 6.6 X10*3/uL (4.8-10.8)
[2025-01-29 14:24] LABS: Appearance Urine Clear; Glucose Urine UA >=1000 mg/dL (Negative); PH 5.0 (5.0-9.0); Specific Gravity - Urine 1.025 (1.005-1.025); UMIC TRIGGER UACC YES
[2025-01-29 14:42] LABS: Alanine Aminotransferase 13 U/L (0-31); Albumin Level 4.4 g/dL (3.5-5.0); Alkaline Phosphatase 112 U/L (39-117); Anion Gap 11 (12-20); Aspartate Amino Transferase 16 U/L (5-31); Blood Urea Nitrogen 15 mg/dL (9-16); Calcium 9.5 mg/dL (8.4-10.2); Carbon Dioxide 30 mmol/L (22-29); Chloride 104 mmol/L (96-108); Cholesterol 235 mg/dL (<200); Estimated Glomerular Filt Rate > 60; HDL Cholesterol 47 mg/dL (>40); Potassium 4.2 mmol/L (3.3-5.1); Sodium 141 mmol/L (135-145); Total Protein 7.0 g/dL (6.5-8.0); Triglycerides 140 mg/dL (<150)
[2025-01-29 15:00] LABS: Microalbum/Creatinine Ratio Ur 14.2 ug/mg cr (<30)
== END 2025-01-29 12:28 | disposition home or self-care (01) ==
LOC: HO.LAB 12:27
PROVIDERS: PCP Internal Medicine; Visit Provider Internal Medicine
DX: E11.9 Type 2 diabetes mellitus without complications (principal); R30.0 Dysuria; E78.00 Pure hypercholesterolemia, unspecified; E55.9 Vitamin D deficiency, unspecified; D64.9 Anemia, unspecified
CPT/HCPCS: 36415; 80053; 80061; 81001; 81003; 82043; 82306; 82570; 83036; 84443; 85025